=== PATIENT | female | born 2000 | race Caucasian/White ===

== ENCOUNTER 2022-08-27 13:00 | Emergency (ER) | payer BC, MEDICAID, SELFPAY ==
[2022-08-27 13:03] VITALS: BP 131/90; PULSE 95; RESP 18; TEMP 36.8; O2SAT 97; BMI 35.2
--- NOTE | 2022-08-27 13:17 | ED_ITS ---
HPI - General Adult General Time Seen by Provider: 13:18 Date Seen: 08/27/22 Chief complaint: Syncope/Fainted Stated complaint: Fainted this morning Time Seen by Provider: 08/27/22 13:02 Source: patient Mode of arrival: ambulatory Limitations: no limitations History of Present Illness HPI narrative: patient is a 22-year-old female recently got back from [facility] where she was visiting with her cousin. She lives in [place]. he s [employer] [facility] online. She reports she has been quite healthy. She apparently had some type of near syncopal episode yesterday when she got home and was with her family, did not have any seizure activity, did not lose consciousness. She had an episode today where she laid her head down and felt lightheaded. She has a history of migraines. She had a couple of these when she was in [facility]. She also got her 1st COVID shot prior to leaving and thought her headaches plan of been exacerbated since then. She is not awaken with headaches she has not had any neurologic complaints thunderclap headache neck pain. Related Data Home Medications Medication Instructions Recorded Confirmed No Known Home Medications 08/27/22 08/27/22 Allergies Allergy/AdvReac Type Severity Reaction Status Date / Time No Known Drug Allergies Allergy Verified 08/27/22 13:11 Review of Systems Status of ROS: Reports: 6 or more systems reviewed and unremarkable except as noted in History and below [facility] Social History Smoking Status: Never smoker How often do you have a drink containing alcohol: never AUDIT-C Alcohol total score: 0 Non-prescribed substance use: denies use service: No Exam Narrative: Exam Narrative: Objective: Patient's vital signs unremarkable She is alert orient x3 Mouth is well hydrated No facial asymmetry no scleral icterus Neck is supple Chest clear Heart rhythm regular heart murmur Abdomen benign soft nontender Extremities are no edema Neurologic nonfocal Skin is warm and dry Const: Vital Signs, click to edit/add: Vital Signs - 24 hr 08/27/22 13:03 Temperature 98.3 F Pulse Rate [Pulse Oximeter] 95 Respiratory Rate 18 Blood Pressure [Ri ght Upper Arm] 131/90 H Pulse Oximetry 97 Oxygen Delivery Me thod Room Air Course Vital Signs Vital signs: Initial Vital Signs Temperature 98.3 F 08/27/22 13:03 Temperature Source Temporal Artery Scan 08/27/22 13:03 Pulse Rate 95 08/27/22 13:03 Respiratory Rate 18 08/27/22 13:03 Blood Pressure 131/90 H 08/27/22 13:03 Blood Pressure Mean 103 08/27/22 13:03 Blood Pressure Position Supine 08/27/22 13:03 Pulse Oximetry 97 08/27/22 13:03 Oxygen Delivery Method 08/27/22 13:03 Vital Signs Temperature 98.3 F 08/27/22 13:03 Pulse Rate 95 08/27/22 13:03 Respiratory Rate 18 08/27/22 13:03 Blood Pressure 131/90 H 08/27/22 13:03 Pulse Oximetry 97 08/27/22 13:03 Oxygen Delivery Method 08/27/22 13:03 Temperature 98.3 F 08/27/22 13:03 Pulse Rate 95 08/27/22 13:03 Respiratory Rate 18 08/27/22 13:03 Blood Pressure 131/90 H 08/27/22 13:03 Pulse Oximetry 97 08/27/22 13:03 Oxygen Delivery Method 08/27/22 13:03 Medical Decision Making MDM Narrative Medical decision making narrative: patient is a 22-year-old female has had a couple near syncopal episodes. No history of seizure or vasovagal type symptoms in the past. The patient does re port she has had her menstrual cycle little closer together than it has been in the past and she is having it currently. Denies . Denies chest pain, breathing problem fevers chills or cough. Denies diarrhea. Denies lower extremity swelling. At this point given her recent travel will check a multitude to lab tests including COVID/RSV/ influenza, will check an EKG, will give her L IV fluid, electrolytes will be checked as well as heme 4. Disposition pending findings. addendum: The patient's EKG shows sinus rhythm with sinus arrhythmia by my read, white count is minimally elevated at 13,300 thousand three hundred with a normal differential other than slightly elevated neutrophils, D-dimer is negative, electrolytes are normal, LFTs are normal, CRP is less than 0.5, urinalysis looks like she is having her menstrual cycle which she is. At this point recommend observation, fluids, light activity, recheck with primary care in the next couple of days would recommend home for a couple of days. Return as needed. Patient certainly could have some mild dehydration, could have a mild viral infection from her travel. She has reassuring blood studies. An EKG. Lab Data Labs: Lab Results 08/27/22 08/27/22 08/27/22 Range/Units 13:28 13:30 13:41 WBC (4.50-11.00) K/uL RBC (4.00-5.20) m/uL Hgb (12.0-16.0) gm/dL Hct (33.0-51.0) % MCV (80-100) fL MCH (26-34) pg MCHC (32-36) gm/dL RDW Coeff of Trae (11.5-15.5) % Plt Count (140-440) K/uL Neut % (Auto) (42.0-72.0) % Lymph % (Auto) (20-44) % [place] % (Auto) (0.0-11.0) % Eos % (Auto) (0.0-7.0) % Baso % (Auto) (0.0-3.0) % Neut # (Auto) (1.7-7.0) K/uL Lymph # (Auto) (0.90-2.90) K/uL [place] # (Auto) (0.00-0.90) K/UL Eos # (Auto) (0.00-0.50) K/uL Baso # (Auto) (0.00-0.30) K/uL D-Dimer Quant (PE/DVT) (0.00-0.50) ug/ml Sodium 139 (135-149) mmol/L Potassium 4.0 (3.6-5.1) mmol/L Chloride 107 (96-114) mmol/L Carbon Dioxide 24 (20-32) mmol/L BUN 13 (5-24) mg/dL Creatinine 0.8 (0.5-1.5) mg/dL Estimated Creat Clear 96.86 Estimated GFR 108 ml/min Glucose 85 (60-115) mg/dL Lactate (0.5-1.9) mmol/L Calcium 9.5 (8.4-10.6) mg/dL Total Bilirubin (0.1-1.5) mg/dL Direct Bilirubin (0.0-0.5) mg/dL AST (12-35) U/L ALT (4-35) U/L Alkaline Phosphatase (40-150) U/L C-Reactive Protein < 0.5 L (0.5-1.0) mg/dL Total Protein (6.0-8.3) g/dL Albumin (3.3-5.0) g/dL HCG, Qual (Negative) Urine Color Yellow (Yellow) Urine Appearance Slightly Cloudy A (Clear) Urine pH 6.0 (5.0-8.5) Ur Specific [place] >= 1.030 (1.000-1.030) Urine Protein Negative (Negative) Urine Glucose (UA) Negative (Negative) Urine Ketones Negative (Negative) Urine Blood 3+ A (Negative) Urine Nitrite Negative (Negative) Urine Bilirubin Negative (Negative) Urine Urobilinogen 0.2 (0.2-1.0) Ur Leukocyte Esterase Negative (Negative) Urine RBC 10-25 A (0-2) Urine WBC 0-2 (0-5) Ur Squamous Epith Cells Few (None-Few) Urine Bacteria None (None) SARS-CoV-2 (PCR) Negative SARS-CoV-2 (Negative) Influenza Type A (PCR) Negative PCR FLU A (Negative) Influenza Type B (PCR) Negative PCR FLU B (Negative) RSV (PCR) Negative PCR RSV (Negative) 08/27/22 08/27/22 08/27/22 Range/Units 13:41 13:41 13:41 WBC 13.30 H (4.50-11.00) K/uL RBC 5.01 (4.00-5.20) m/uL Hgb 15.6 (12.0-16.0) gm/dL Hct 44.9 (33.0-51.0) % MCV 90 (80-100) fL MCH 31 (26-34) pg MCHC 35 (32-36) gm/dL RDW Coeff of Trae 12.3 (11.5-15.5) % Plt Count 365 (140-440) K/uL Neut % (Auto) 67.0 (42.0-72.0) % Lymph % (Auto) 27.4 (20-44) % [place] % (Auto) 4.1 (0.0-11.0) % Eos % (Auto) 0.8 (0.0-7.0) % Baso % (Auto) 0.4 (0.0-3.0) % Neut # (Auto) 8.90 H (1.7-7.0) K/uL Lymph # (Auto) 3.60 H (0.90-2.90) K/uL [place] # (Auto) 0.50 (0.00-0.90) K/UL Eos # (Auto) 0.10 (0.00-0.50) K/uL Baso # (Auto) 0.10 (0.00-0.30) K/uL D-Dimer Quant (PE/DVT) < 0.27 (0.00-0.50) ug/ml Sodium (135-149) mmol/L Potassium (3.6-5.1) mmol/L Chloride (96-114) mmol/L Carbon Dioxide (20-32) mmol/L BUN (5-24) mg/dL Creatinine (0.5-1.5) mg/dL Estimated Creat Clear Estimated GFR ml/min Glucose (60-115) mg/dL Lactate (0.5-1.9) mmol/L Calcium (8.4-10.6) mg/dL Total Bilirubin 0.9 (0.1-1.5) mg/dL Direct Bilirubin 0.2 (0.0-0.5) mg/dL AST 25 (12-35) U/L ALT 17 (4-35) U/L Alkaline Phosphatase 71 (40-150) U/L C-Reactive Protein (0.5-1.0) mg/dL Total Protein 7.8 (6.0-8.3) g/dL Albumin 4.5 (3.3-5.0) g/dL HCG, Qual (Negative) Urine Color (Yellow) Urine Appearance (Clear) Urine pH (5.0-8.5) Ur Specific [place] (1.000-1.030) Urine Protein (Negative) Urine Glucose (UA) (Negative) Urine Ketones (Negative) Urine Blood (Negative) Urine Nitrite (Negative) Urine Bilirubin (Negative) Urine Urobilinogen (0.2-1.0) Ur Leukocyte Esterase (Negative) Urine RBC (0-2) Urine WBC (0-5) Ur Squamous Epith Cells (None-Few) Urine Bacteria (None) SARS-CoV-2 (PCR) (Negative) Influenza Type A (PCR) (Negative) Influenza Type B (PCR) (Negative) RSV (PCR) (Negative) 08/27/22 08/27/22 Range/Units 13:41 13:41 WBC (4.50-11.00) K/uL RBC (4.00-5.20) m/uL Hgb (12.0-16.0) gm/dL Hct (33.0-51.0) % MCV (80-100) fL MCH (26-34) pg MCHC (32-36) gm/dL RDW Coeff of Trae (11.5-15.5) % Plt Count (140-440) K/uL Neut % (Auto) (42.0-72.0) % Lymph % (Auto) (20-44) % [place] % (Auto) (0.0-11.0) % Eos % (Auto) (0.0-7.0) % Baso % (Auto) (0.0-3.0) % Neut # (Auto) (1.7-7.0) K/uL Lymph # (Auto) (0.90-2.90) K/uL [place] # (Auto) (0.00-0.90) K/UL Eos # (Auto) (0.00-0.50) K/uL Baso # (Auto) (0.00-0.30) K/uL D-Dimer Quant (PE/DVT) (0.00-0.50) ug/ml Sodium (135-149) mmol/L Potassium (3.6-5.1) mmol/L Chloride (96-114) mmol/L Carbon Dioxide (20-32) mmol/L BUN (5-24) mg/dL Creatinine (0.5-1.5) mg/dL Estimated Creat Clear Estimated GFR ml/min Glucose (60-115) mg/dL Lactate 0.5 (0.5-1.9) mmol/L Calcium (8.4-10.6) mg/dL Total Bilirubin (0.1-1.5) mg/dL Direct Bilirubin (0.0-0.5) mg/dL AST (12-35) U/L ALT (4-35) U/L Alkaline Phosphatase (40-150) U/L C-Reactive Protein (0.5-1.0) mg/dL Total Protein (6.0-8.3) g/dL Albumin (3.3-5.0) g/dL HCG, Qual Negative (Negative) Urine Color (Yellow) Urine Appearance (Clear) Urine pH (5.0-8.5) Ur Specific [place] (1.000-1.030) Urine Protein (Negative) Urine Glucose (UA) (Negative) Urine Ketones (Negative) Urine Blood (Negative) Urine Nitrite (Negative) Urine Bilirubin (Negative) Urine Urobilinogen (0.2-1.0) Ur Leukocyte Esterase (Negative) Urine RBC (0-2) Urine WBC (0-5) Ur Squamous Epith Cells (None-Few) Urine Bacteria (None) SARS-CoV-2 (PCR) (Negative) Influenza Type A (PCR) (Negative) Influenza Type B (PCR) (Negative) RSV (PCR) (Negative) Discharge Plan Discharge Clinical Impression: Near syncope Patient Disposition: Home w/ Parent or Adult Condition: Improved Additional Instructions: rest, fluids, light activity, recheck with regular doctor next couple of days, return to ED sooner problems or concerns. Activity Level: Light activity Discharge Diet: Regular Prescriptions: No Action No Known Home Medications Stand Alone Forms: [employer] Info Instructions
[2022-08-27 13:45] LABS: Appearance Urine Slightly Cloudy (Clear); Bilirubin Urine Negative (Negative); Blood Urine 3+ (Negative); Color Urine Yellow (Yellow); Glucose Urine Negative (Negative); Ketones Urine Negative (Negative); Leukocyte Esterase Urine Negative (Negative); Nitrite Urine Negative (Negative); Protein Urine Negative (Negative); Specific Gravity Urine >= 1.030 (1.000-1.030); Urobilinogen Urine 0.2 (0.2-1.0)
[2022-08-27 13:47] LABS: Lactate* 0.5 mmol/L (0.5-1.9)
[2022-08-27] MEDS: 0.9 % SODIUM CHLORIDE 1000 ml 1,000 ML 6000 ML IV (13:50)
[2022-08-27 13:52] LABS: Basophils Percent Auto 0.4 % (0.0-3.0); Eosinophils Percent Auto 0.8 % (0.0-7.0); Hematocrit 44.9 % (33.0-51.0); Hemoglobin* 15.6 gm/dL (12.0-16.0); Immature Granulocytes Pct Auto 0.3 %; Lymphocytes Percent Auto 27.4 % (20-44); Mean Corpuscular HGB Conc 35 gm/dL (32-36); Mean Corpuscular Hemoglobin 31 pg (26-34); Mean Corpuscular Volume 90 fL (80-100); Monocytes Percent Auto 4.1 % (0.0-11.0); Platelet Count* 365 K/uL (140-440); RDW Coefficient of Variation % 12.3 % (11.5-15.5); Red Blood Count 5.01 m/uL (4.00-5.20)
[2022-08-27 13:57] LABS: Slide Review Reflex No
[2022-08-27 14:04] LABS: Chloride* 107 mmol/L (96-114); Sodium* 139 mmol/L (135-149)
[2022-08-27 14:05] LABS: Albumin* 4.5 g/dL (3.3-5.0)
[2022-08-27 14:07] LABS: Creatinine* 0.8 mg/dL (0.5-1.5); Est. Creatinine Clearance* 96.86; Estimated Glomerular Filt Rate 108 ml/min
[2022-08-27 14:08] LABS: Alkaline Phosphatase* 71 U/L (40-150); Aspartate Amino Transferase* 25 U/L (12-35); Bilirubin Direct* 0.2 mg/dL (0.0-0.5); Bilirubin Total* 0.9 mg/dL (0.1-1.5); Blood Urea Nitrogen* 13 mg/dL (5-24); Calcium* 9.5 mg/dL (8.4-10.6); Carbon Dioxide* 24 mmol/L (20-32); Glucose* 85 mg/dL (60-115); Total Protein* 7.8 g/dL (6.0-8.3)
[2022-08-27 14:09] LABS: Alanine Aminotransferase* 17 U/L (4-35)
[2022-08-27 14:11] LABS: C Reactive Protein* < 0.5 mg/dL (0.5-1.0)
[2022-08-27 14:14] LABS: PCR FLU A Negative PCR FLU A (Negative); PCR FLU B Negative PCR FLU B (Negative); PCR RSV Negative PCR RSV (Negative)
[2022-08-27 14:18] LABS: SARS PCR* Negative SARS-CoV-2 (Negative)
[2022-08-27 14:20] LABS: Squamous Epithelial Cell Urine Few (None-Few); WBC Urine 0-2 (0-5)
[2022-08-27 14:25] LABS: HCG Qualitative Serum* Negative (Negative)
[2022-08-27 14:27] LABS: D Dimer Quantitative* < 0.27 ug/ml (0.00-0.50)
== END 2022-08-27 15:49 | disposition home or self-care (01) ==
LOC: ED 13:58
PROVIDERS: Emergency Provider Family Medicine; PCP Family Medicine
DX: R55 Syncope and collapse (principal)
CPT/HCPCS: 36415; 80048; 80076; 81001; 83605; 84703; 85025; 85379; 86140; 87086; 87502; 87634; 87635; 93005; 99283; 99284; J7030

== ENCOUNTER 2023-04-27 19:47 | Outpatient (CLI) | payer BC, SELFPAY ==
--- NOTE | 2023-05-06 12:11 | W.PM.SLEEP ---
Sleep Study Details Details Interpreting Provider: Pratima Date of Sleep Study: 04/27/23 Sleep Study Details: STUDY TYPE:? Home unattended ? BMI:? 35.9 ORDERING PROVIDER:? Pratima INDICATION:? Concerns about sleep apnea ? SLEEP SUMMARY:? 391.5 minutes monitored RESPIRATORY SUMMARY:? AHI 5.5, supine 11, right lateral 0.7. Low oxygen 91 Snoring 0% PERIODIC LIMB MOVEMENTS OF SLEEP:? Not recorded during home study CARDIAC:? Range 47-104 beats per minute, mean 68.6 beats per minute IMPRESSION:? Mild obstructive sleep apnea with supine position dependency. RECOMMENDATION: Treatment options include AutoSet CPAP, dental appliance, weight loss and/or airway expansion surgery. Patient is quite symptomatic so I would recommend a trial of AutoSet CPAP.
== END 2023-04-27 19:48 | disposition home or self-care (01) ==
LOC: SLEEP 19:47
PROVIDERS: PCP Family Medicine; Visit Provider Otolaryngology
DX: G47.33 Obstructive sleep apnea (adult) (pediatric) (principal)
CPT/HCPCS: 95806

== ENCOUNTER 2023-11-18 12:22 | Outpatient (CLI) | payer OTHER, SELFPAY ==
--- OUTSIDE RECORDS SUMMARY | 2023-11-24 17:23 | XMS_ITS ---
Author Name Unknown Organization [facility] Address [address] [place] [address] Care Team Providers Care Manager Equipment Name Role Phone Unavailable Unavailable Unavailable Surgery Details Not on file Complications Check Surgery Details section. Procedure Estimated Blood Loss Check Surgery Details section. Procedure Findings Check Surgery Details section. Procedure Specimens Taken Check Surgery Details section.
--- OUTSIDE RECORDS SUMMARY | 2023-11-24 17:23 | XMS_ITS | Clinical Summary ---
Author Name Unknown Organization [facility] Address [place], [place] [address] Care Team Providers Care Sample Patternmaker Name Role Phone Ping George MD Primary Care Provider [phone] Allergies Active Allergy Reactions Criticality Noted Date [...] 4 Discontinued (Reorder (E-cancel not sent)) nortriptyline 50 mg capsuleIndications :Headache syndrome Take 1 Capsule (50 mg) by mouth at bedtime. 90 Capsule 3 10/23/2023 4 Discontinued (*Medication adjustment) nortriptyline (PAMELOR) 25 mg capsuleIndications :Migraine without aura and without status migrainosus, not intractable Take 1 Capsule (25 mg) by mouth at bedtime for 14 days. 14 Capsule 11/11/2023 4 Discontinued (Reorder (E-cancel not sent)) nortriptyline (PAMELOR) 25 mg capsuleIndications :Migraine without [...] Encounters Date Type Department Care Team Description 11/24/2023 11:00 AM CDT Ancillary Procedure [facility] [address] [facility] [place] [address] Arrived 11/24/2023 Travel 11/18/2023 Nurse Triage [facility] [address] [place] [address] Ping George MD Headache 11/11/2023 7:30 AM CDT Office Visit [address] [address] Lauryn Tate PA Headache (New dose of headache med has not been working-has been getting daily headaches, last wknd with migraine-has been more difficult to get them to go away-all on left side) 11/11/2023 Travel 10/31/[address] [address] Lauryn Tate PA Prior Authorization (SUMAtriptan (IMITREX) 50 mg tablet - DENIED ) 10/29/[address] [address] Lauryn Tate PA Prior Authorization (nortriptyline 50 mg capsule - PA NOT NEEDED ) 10/26/2023 Orders Only [address] [address] Lauryn Tate PA <No scans attached> 10/07/[address] [address] Lauryn Tate PA Prior Authorization (nortriptyline (PAMELOR) 10 mg capsule - CLOSED) 10/07/[address] [address] Lauryn Tate PA Prior Authorization (escitalopram oxalate (LEXAPRO) 10 mg tablet - CLOSED) 10/02/2023 10:10 AM CDT Office Visit [address] [address] Lauryn Tate PA Medication Management (Struggling with depression and anxiety-had been on sertraline a few years ago and would like to get back on it-also wants correct dose of headache med) 10/02/2023 Travel 08/26/2023 2:30 PM HASH SLINGER Office Visit [facility] [address] [place] [address] Lauryn Tate PA Headache 08/26/2023 Travel from [...] Care Team (Late st Contact Info) Description 11/25/2023 11:30 AM CDT Office Visit [facility] [address] [place] [address] Lauryn Tate PA [address] [address] Health Maintenance Due Date Last Done Comments [...] Procedure Name Priority Date/Time Associated Diagnosis Comments MR HEAD BRAIN WO Routine 11/24/2023 11:0 6 AM CDT Migraine without aura and without status migrainosus, not intractable CBC WITH AUTO DIFFERENTIAL Routine 08/26/2023 3:15 PM HASH SLINGER Migraine without aura and without status migrainosus, not intractable TSH Routine 08/26/2023 3:15 PM HASH SLINGER Migraine without aura and without status migrainosus, not intractable VITAMIN D 25 (DEFICIENCY) Routine 08/26/2023 3:15 PM HASH SLINGER Migraine without aura and without status migrainosus, not intractable COMP METABOLIC PANEL Routine 08/26/2023 3:15 PM HASH SLINGER Migraine without aura and without status migrainosus, not intractable CBC WITH AUTO DIFFERENTIAL Routine 08/26/2023 3:15 PM HASH SLINGER Migraine without aura and without status migrainosus, not intractable from Last 3 Months Results * MR HEAD BRAIN WO (11/24/2023 11:06 AM CDT) Anatomical Region Laterality Modality BRAIN, HEAD Magnetic Resonan ce 11/24/2023 11:5 6 AM CDT Impressions 11/24/2023 11:56 AM CDT Unremarkable noncontrast MRI of the brain. Dictated by Bill Herman MD @ 11/24/2023 11:56:46 AM (Electronically Signed) Narrative 11/24/2023 11:56 AM CDT For Patients: ??As a result of the Cures Act, medical imaging exams and procedure reports are released immediately into your electronic medical record. ??You may view this report before your referring provider. ??If you have questions, please contact your health care provider. INDICATION: Migraine. TECHNIQUE: Multiplanar multisequence noncontrast MR images of the brain. COMPARISON: CT brain 07/01/2019. FINDINGS: The ventricles and sulci are within normal limits for patient age. No mass effect or midline shift. No parenchymal signal abnormalities. No intracranial hemorrhage or pathologic extra-axial fluid collection. No diffusion restriction to suggest acute infarction. The major arterial flow voids of the skullbase are preserved. The globes are symmetric. The paranasal sinuses are well aerated. Trace left mastoid fluid. Procedure Note Bill Herman MD - 11/24/2023 For Patients: As a result of the Cures Act, medical imagingexams and procedure reports are released immediately into your electronicmedical record. You may view this report before your referring provider.If you have questions, please contact your health care provider. INDICATION: Migraine. TECHNIQUE: Multiplanar multisequence noncontrast MR images of the brain. COMPARISON: CT brain 07/01/2019. FINDINGS: The ventricles and sulci are within normal limits for patient age. No masseffect or midline shift. No parenchymal signal abnormalities. No intracranial hemorrhage or pathologic extra-axial fluid collection. Nodiffusion restriction to suggest acute infarction. The major arterial flow voids of the skullbase are preserved. The globesare symmetric. The paranasal sinuses are well aerated. Trace left mastoidfluid. IMPRESSION: Unremarkable noncontrast MRI of the brain. Dictated by Bill Herman MD @ 11/24/2023 11:56:46 AM (Electronically Signed) Lauryn Oriana MARTINEZ MR * (ABNORMAL) CBC WITH AUTO DIFFERENTIAL (08/26/2023 3:15 PM HASH SLINGER) WHITE BLOOD COUNT 12.2(H) 4.5 - 11.0 thou/cu mm 08/26/2023 3:22 PM [facility] RED BLOOD COUNT 4.98 4.00 - 5.20 mil/cu mm 08/26/2023 3:22 PM [facility] HEMOGLOBIN 16.1(H) 12.0 - 16.0 g/dL 08/26/2023 3:22 PM [facility] HEMATOCRIT 44.5 33.0 - 51.0 % 08/26/2023 3:22 PM [facility] MCV 89 80 - 100 fL 08/26/2023 3:22 PM [facility] MCH 32.3 26.0 - 34.0 pg 08/26/2023 3:22 PM [facility] MCHC 36.2(H) 32.0 - 36.0 g/dL 08/26/2023 3:22 PM [facility] RDW 12.9 11.5 - 15.5 % 08/26/2023 3:22 PM [facility] PLATELET COUNT 326 140 - 440 thou/cu mm 08/26/2023 3:22 PM [facility] MPV 9.0 6.5 - 11.0 fL 08/26/2023 3:22 PM [facility] % NEUT 71.6 % 08/26/2023 3:22 PM [facility] % LYMPH 23.7 % 08/26/2023 3:22 PM [facility] % MONO 3.9 % 08/26/2023 3:22 PM [facility] % EOS 0.2 % 08/26/2023 3:22 PM [facility] % BASO 0.6 % 08/26/2023 3:22 PM [facility] ABSOLUTE NEUTROPHILS 8.7(H) 1.7 - 7.0 thou/cu mm 08/26/2023 3:22 PM HASH SLINGER [facility] ABSOLUTE LYMPHOCYTES 2.9 0.9 - 2.9 thou/cu mm 08/26/2023 3:22 PM HASH SLINGER [facility] ABSOLUTE MONOCYTES 0.5 <0.9 thou/cu mm 08/26/2023 3:22 PM HASH SLINGER [facility] ABSOLUTE EOSINOPHILS 0.0 <0.5 thou/cu mm 08/26/2023 3:22 PM HASH SLINGER [facility] ABSOLUTE BASOPHILS 0.1 <0.3 thou/cu mm 08/26/2023 3:22 PM HASH SLINGER [facility] Blood BLOOD SPECIMEN / Unknown Venipuncture / Unknown 08/26/2023 3:15 PM HASH SLINGER 08/26/2023 3:16 PM HASH SLINGER Lauryn MARTINEZ HEMATOLOGY Performing Organization Address City/State/[facility] [place] [address], * VITAMIN D 25 (DEFICIENCY) (08/26/2023 3:15 PM HASH SLINGER) Pathologist [facility] VITAMIN D TOTAL 29.3 20.0 - 80.0 ng/mL 08/26/2023 10:32 PM HASH SLINGER [facility] Blood BLOOD SPECIMEN / Unknown Venipuncture / Unknown 08/26/2023 3:15 PM HASH SLINGER 08/26/2023 3:16 PM HASH SLINGER Narrative [facility] - 08/26/2023 10:32 PM HASH SLINGER ? Vitamin D Status Deficiency: ? <20 ng/mL Insufficiency: ?20-29 ng/mL Sufficiency: ?30-80 ng/mL Possible Toxicity: ??>80 ng/mL Based on [place] [employer] recommendations Biotin supplements may cause clinically significant interference for this test assay. ??If interference is suspected, it is strongly recommended that biotin is discontinued for at least one week prior to retesting. Lauryn MARTINEZ SEND OUTS Performing Organization Address [facility] Co de Phone Number [facility] [address] [place] [phone], * TSH (08/26/2023 3:15 PM HASH SLINGER) TSH 2.19 0.27 - 4.20 uIU/mL 08/26/2023 10:32 PM HASH SLINGER [facility] Blood BLOOD SPECIMEN / Unknown Venipuncture / Unknown 08/26/2023 3:15 PM HASH SLINGER 08/26/2023 3:16 PM HASH SLINGER Narrative [facility] - 08/26/2023 10:32 PM HASH SLINGER In Adults, TSH values between 5.00 and 10.00 uIU/ml do not necessarily indicate the presence of Hypothyroidism. Correlation with clinical findings such as presence of goiter and/or Thyroperoxidase (TPO) Antibody may be helpful. For more information please refer to BRANDIN 2004; 291: 228-238. Lauryn MARTINEZ CHEMISTRY Performing Organization Address [facility] Co de Phone Number [facility] [address] [place] [phone], * (ABNORMAL) COMP METABOLIC PANEL (08/26/2023 3:15 PM HASH SLINGER) SODIUM 136 136 - 145 mmol/L 08/26/2023 10:32 PM HASH SLINGER [facility] POTASSIUM 4.1 3.5 - 5.1 mmol/L 08/26/2023 10:32 PM HASH SLINGER [facility] CHLORIDE 103 98 - 107 mmol/L 08/26/2023 10:32 PM [facility] CO2,TOTAL 21(L) 22 - 29 mmol/L 08/26/2023 10:32 PM HASH SLINGER [facility] ANION GAP 12 5 - 18 08/26/2023 10:32 PM [facility] GLUCOSE 99 70 - 99 mg/dL 08/26/2023 10:32 PM [facility] CALCIUM 9.4 8.6 - 10.0 mg/dL 08/26/2023 10:32 PM [facility] BUN 9 6 - 20 mg/dL 08/26/2023 10:32 PM [facility] CREATININE 0.79 0.50 - 0.90 mg/dL 08/26/2023 10:32 PM [facility] BUN/CREAT RATIO 11 10 - 20 10:32 PM [facility] eGFR >90 >90 mL/min/1.7 3m2 08/26/2023 10:32 PM [facility] Comment:As of 2021, eG FR is calculated by the CKD-EPI creatinine equation without race adjustment. ??eGFR can be influenced by muscle mass, exercise, and diet. ??The reported eGFR is an estimation only and is only applicable if the renal function is stable. ALBUMIN 4.5 4.0 - 4.9 g/dL 08/26/2023 10:32 PM [facility] PROTEIN,TOTAL 7.2 6.0 - 8.0 g/dL 08/26/2023 10:32 PM [facility] BILIRUBIN,TOTAL 0.7 0.0 - 1.2 mg/dL 08/26/2023 10:32 PM [facility] ALK PHOSPHATASE 70 35 - 104 IU/L 08/26/2023 10:32 PM [facility] ALT (SGPT) 11 10 - 35 IU/L 08/26/2023 10:32 PM [facility] AST (SGOT) 25 10 - 35 IU/L 08/26/2023 10:32 PM [facility] Blood BLOOD SPECIMEN / Unknown Venipuncture / Unknown 08/26/2023 3:15 PM HASH SLINGER 08/26/2023 3:16 PM HASH SLINGER Lauryn MARTINEZ CHEMISTRY [facility] [address] [place] [address], [place] from Last 3 Months Care Teams Sample Patternmaker Relationship Specialty Start Date End Date Ping George MD [address] [place] [address] PCP - General Family Practice 08/18/20
--- OUTSIDE RECORDS SUMMARY | 2023-11-24 17:23 | XMS_ITS | Clinical Summary ---
Author Name Unknown Organization [facility] Address [address] [place] [address] Care Team Providers Care Naval Aircrewman Mechanical Name Role Phone Elsewhere, Pcp Primary Care Provider Unavailabl e Source Comments Patient records contain information from all sites at [facility]. For routine questions regarding patient records, call [phone] during business hours, M-F 8:00 AM - 5:00 PM Central Time. Record requests for emergency care only can be directed to [phone] at any time.[facility] Allergies Active Allergy Reactions Criticality Noted Date [...] Comments Blood Pressure 119/61 07/09/2023 9:00 PM BLADDER BLOWER Pulse 76 07/09/2023 9:00 PM BLADDER BLOWER Temperature 36.3 ??C (97.3 ??F) 07/09/2023 6:18 PM CS T Respiratory Rate 18 07/09/2023 9:00 PM BLADDER BLOWER Oxygen Saturation 99% 07/09/2023 9:00 PM BLADDER BLOWER Inhaled Oxygen Concentration - - Weight 93.6 kg (206 lb 5.6 oz) 07/09/2023 6:15 P M BLADDER BLOWER Height 160.5 cm (5' 3.19) 07/29/2019 7:53 [...] 04/03/2020, 10/18/2014, Additional history exists Care Teams Naval Aircrewman Mechanical Relationship Specialty Start Date End Date Elsewhere, Pcp PCP - General Concrete Finishing Machine Operator 07/29/19
--- OUTSIDE RECORDS SUMMARY | 2023-11-24 17:23 | XMS_ITS | Referral Summary ---
Author Name Unknown Organization [facility] Address [address] [place] [address] Care Team Providers Care Materials Development Engineer Name Role Phone Elsewhere, Pcp Primary Care Provider Unavailabl e Source Comments Patient records contain information from all sites at [facility]. For routine questions regarding patient records, call [phone] during business hours, M-F 8:00 AM - 5:00 PM Central Time. Record requests for emergency care only can be directed to [phone] at any time.[facility] Allergies Active Allergy Reactions Criticality Noted [...] Comments Blood Pressure 119/61 07/09/2023 9:00 PM BUTCHER ASSISTANT Pulse 76 07/09/2023 9:00 PM BUTCHER ASSISTANT Temperature 36.3 ??C (97.3 ??F) 07/09/2023 6:18 PM CS T Respiratory Rate 18 07/09/2023 9:00 PM BUTCHER ASSISTANT Oxygen Saturation 99% 07/09/2023 9:00 PM BUTCHER ASSISTANT Inhaled Oxygen Concentration - - Weight 93.6 kg (206 lb 5.6 oz) 07/09/2023 6:15 P M BUTCHER ASSISTANT Height 160.5 cm (5' 3.19) 07/29/2019 7:53 AM CS T Body Mass Index - - Plan of Treatment Not on file Care Teams Materials Development Engineer Relationship Specialty Start Date End Date Elsewhere, Pcp PCP - General Machine Feeder Raw Stock 07/29/19
== END 2023-11-18 12:23 | disposition home or self-care (01) ==
LOC: AMB 11-24 17:21
PROVIDERS: PCP Physician Assistant; Visit Provider Emergency Medicine
DX: R55 Syncope and collapse (principal); R51.9 Headache, unspecified
CPT/HCPCS: A0425; A0427

== ENCOUNTER 2023-11-18 12:47 | Emergency (ER) | payer OTHER, SELFPAY ==
[2023-11-18] VITALS (23 sets, daily range): BP systolic 113–144; BP diastolic 65–106; PULSE 73–113; RESP 18; TEMP 36.5; O2SAT 96–100; BMI 37.8
--- NOTE | 2023-11-18 13:29 | CT_ITS ---
Patient: JOVANNA WELLS Facility:?[facility] RIS Patient ID:?[id number] Site Patient ID:?[id number]. Site :?[id number] Study:?CT-Head WO-11/18/2023 4:02:40 PM Ordering Physician:ISIS Final Report: INDICATION: Headache, syncope. TECHNIQUE: CT head without contrast. COMPARISON: None. FINDINGS: CSF spaces: Within normal limits for age. Brain parenchyma and extra-axial spaces: The pereira-white differentiation is normal. No sign of mass, hemorrhage, or midline shift. No extra-axial fluid collection. Skull base and calvarium: The visualized paranasal sinuses and mastoid air cells demonstrate no acute or significant findings. The visualized orbits are grossly unremarkable. No skull fractures. IMPRESSION: Unremarkable noncontrast head CT. Please note that all CT scans at this facility use dose modulation, iterative reconstruction, and/or weight-based dosing when appropriate to reduce radiation dose to as low as reasonably achievable. Dictated by Flo Sanchez MD @ 11/18/2023 4:14:18 PM Signed by:?Flo Sanchez MD @11/18/2023 4:14:18 PM (Electronic Signature)
[2023-11-18] MEDS: 0.9 % SODIUM CHLORIDE 1000 ml 1,000 ML IV (14:09)
--- NOTE | 2023-11-18 14:14 | ED_ITS ---
HPI - General Adult General Date Seen: 11/18/23 Chief complaint: Headache/Migraine Stated complaint: migraine Time Seen by Provider: 11/18/23 12:52 History of Present Illness HPI narrative: 23-year-old female with a past medical history of exercise-induced asthma, anxiety, migraine headaches (with frequent, almost daily headaches), irritable bowel syndrome, presenting to the ER today by EMS from her work after a syncopal event and headache. She does have very frequent headaches. She follows with the [facility] clinic for primary care in headache management. She is currently on escitalopram for anxiety. She was started on Topamax to try to reduce the frequency of her headaches, by her primary care provider. She started her 1st dose of to open this morning. Nonetheless around 10:00 a.m. she began to get him migraine headache. She took 1 of her sumatriptan tablets as she normally does. The headache went from about a 4 to a 2 but was still present. She was at work at her job at [employer]. She requested to be in the window because often times fresh air can help her headache get better. She had been standing, on her feet, in the window for about 10 minutes when she began to feel unusual. She said the upper half of her body from her abdomen up to her head including both of her arms went numb. She started to feel her heart racing and she tried to lay down. After that she felt generally weak and numb all over and then she blacked out. It sounds like she did lose consciousness for less than a minute and then woke up and took a big breath and then lost consciousness again. Her episode was witnessed by coworkers. No described seizure activity. After that she came to. She can use to feel generally weak and numb throughout her entire body (now including both legs in addition to her upper body). No ongoing racing heart. No chest pain. No other new symptoms. No recent fever. No cough or trouble breathing. No recent chest pains. No vomiting or diarrhea. She is currently on her menstrual cycle. She was noting a little bit of pelvic cramping yesterday which is unusual for her because she does not normally get any cramps with her period. She does not think she is No trouble with urination No recent head injuries. She also notes that she has a family history of multiple people with ?heart problems?. Discussed with her mother by phone. It sounds like the patient's grandmother had coronary disease, cardiomyopathy, and also had a ?bridge? between her heart that was causing arrhythmias. I wonder for grandmother may have had Wcmic-Kflsfkkti-Hezgb. She has a cousin with a VSD. She has another cousin with a possible ?bridge? in her heart. There other cousins with been told that they should do Valsalva maneuvers when they have palpitations (unclear if they have SVT?) The patient does not have any known person history of arrhythmia or any conduction pathway abnormalities. Related Data Home Medications Medication Instructions Recorded Confirmed albuterol 90 mcg/actuation aerosol 2 spray inhalation PRN 01/01/23 05/06/23 inhaler escitalopram oxalate 10 mg tablet 10 mg PO DAILY 11/18/23 11/18/23 nortriptyline 50 mg capsule 50 mg PO QPM 11/18/23 11/18/23 sumatriptan succinate 50 mg tablet 50 mg PO BID migraine 11/18/23 11/18/23 topiramate 25 mg tablet mg PO 11/18/23 Allergies Allergy/AdvReac Type Severity Reaction Status Date / Time No Known Drug Allergies Allergy Verified 05/06/23 10:10 [facility] Medical History (Updated 11/18/23 @ 16:16 by Eber Zelaya MD) Depression ?F32.A - Depression, unspecified (ICD-10) Asthma ?J45.909 - Unspecified asthma, uncomplicated (ICD-10) Social History Smoking Status: Never smoker How often do you have a drink containing alcohol: never AUDIT-C Alcohol total score: 0 Non-prescribed substance use: denies use Little interest or pleasure in doing things: not at all Feeling down, depressed, or hopeless: not at all service: No Exam Narrative: Exam Narrative: Constitutional: Appears well-developed and well-nourished. Alert. Conversant but somewhat vague historian. Boyfriend attentively at her side.. Non toxic. Patient seems somewhat anxious. HENT: Head: Atraumatic. No depressed skull fracture, Raccoon Eyes, Crowley's sign, or hemotympanum. Face normal. TMs normal Nose: Nose normal. Mouth/Throat: Oral mucosa is clear and moist. no trismus. Pharynx normal. Tonsils symmetric. No tonsillar enlargement, erythema, or exudate. Eyes: Conjunctivae normal. EOM normal. Pupils equal, round, and reactive to light. No scleral icterus. Neck: Normal range of motion. Neck supple. No tracheal deviation present. Cardiovascular: Normal rate, regular rhythm. No gallop. No friction rub. No murmur heard. Symmetric radial artery pulses Pulmonary/Chest: Effort normal. No stridor. No respiratory distress. No wheezes. No rales. No rhonchi . No tenderness. Abdominal: Soft. Bowel sounds normal. No distension. No mass. No tenderness. No rebound. No guarding. Musculoskeletal: RUE: Normal range of motion. No tenderness. No deformity LUE: Normal range of motion. No tenderness. No deformity RLE: Normal range of motion. No edema. No tenderness. No deformity LLE: Normal range of motion. No edema. No tenderness. No deformity Lymph: No cervical adenopathy. Neurological: Mental status normal. Attention normal. Alert and oriented x3. GCS 15. Memory normal. Speech fluent. Cognition normal. Cranial Nerves intact II-XII except I did not formally test gag or visual acuity. EOMI. Palate elevates symmetrically and tongue protrudes in the midline. Strength: 5/5 trapezius on the right and left 5/5 deltoid on the right and left 5/5 biceps on the right and left 5/5 triceps on the right and left 5/5 laster hand on the right and left 5/5 thumb opposition on the right and le ft 5/5 finger abduction on the right and le ft 5/5 hip flexors (L3) on the right and le ft 5/5 quadriceps (L4) on the right and lef t 5/5 tibialis anterior on the right and l eft 5/5 EHL (L5) on the right and left 5/5 gastrocnemius (S1) on the right and left 5/5 hamstring on the right and left Sensation intact to light touch in both upper extremities (C4-T1) Sensation intact to light touch in Both lower extremities (L4-S1). Finger to nose and coordination normal. Skin: Skin is warm and dry. No rash noted. No pallor. Normal capillary refill. Psychiatric: Normal mood. . Somewhat anxious. Polite. Const: Vital Signs, click to edit/add: Vital Signs - 24 hr 11/18/23 12:57 11/18/23 13:47 Temperature 97.7 F Pulse Rate [Pulse Oximeter] 97 Pulse Rate [orthos tatic lying Pulse Oximeter] 82 Pulse Rate [orthos tatic sitting Puls e Oximeter] 95 Pulse Rate [orthos tatic standing Pul se Oximeter] 113 H Respiratory Rate 18 Blood Pressure [Ri ght Upper Arm] 134/104 H Blood Pressure [or thostatic lying Ri ght Arm] 128/83 Blood Pressure [or thostatic sitting Right Arm] 134/88 Blood Pressure [or thostatic standing Right Arm] 144/106 H Pulse Oximetry 99 Oxygen Delivery Me thod Room Air Course Vital Signs Vital signs: Initial Vital Signs Temperature 97.7 F 11/18/23 12:57 Temperature Source Temporal Artery Scan 11/18/23 12:57 Pulse Rate 97 11/18/23 12:57 Respiratory Rate 18 11/18/23 12:57 Blood Pressure 134/104 H 11/18/23 12:57 Blood Pressure Mean 114 H 11/18/23 12:57 Pulse Oximetry 99 11/18/23 12:57 Oxygen Delivery Method Room Air 11/18/23 12:57 Vital Signs Temperature 97.7 F 11/18/23 12:57 Pulse Rate 97 11/18/23 12:57 Respiratory Rate 18 11/18/23 12:57 Blood Pressure 134/104 H 11/18/23 12:57 Pulse Oximetry 99 11/18/23 12:57 Oxygen Delivery Method Room Air 11/18/23 12:57 Temperature 97.7 F 11/18/23 12:57 Pulse Rate 82 11/18/23 13:47 Respiratory Rate 18 11/18/23 12:57 Blood Pressure 128/83 11/18/23 13:47 Pulse Oximetry 99 11/18/23 12:57 Oxygen Delivery Method Room Air 11/18/23 12:57 Medications Administered Medications: Discontinued Medications Generic Name Dose Route Start Last Admin Trade Name Freq PRN Reason Stop Dose Admin Diphenhydramine HCl 25 mg 11/18/23 14:28 11/18/23 14:36 Diphenhydramine 50 Mg/Ml Inj IVP 11/18/23 14:29 25 mg ONCE ONE Administration Sodium Chloride 1,000 mls @ 1,000 mls/hr 11/18/23 13:30 11/18/23 14:09 0.9 % Sodium Chloride 1000 Ml IV 11/18/23 14:29 1,000 mls/hr .Q1H DALILA Administration Ketorolac Tromethamine 15 mg 11/18/23 14:28 11/18/23 14:36 Ketorolac 15 Mg/Ml Inj IVP 11/18/23 14:29 15 mg ONCE ONE Administration Medical Decision Making MDM Narrative Medical decision making narrative: This patient has history of chronic headaches and frequent daily headaches who presents to the ER today for an episode of syncope that occurred while she was at work. She follows with her primary care provider for managing this and normally treats her headaches with sumatriptan. She was started on once daily Topamax today to try to reduce the frequency of her headaches. Despite that she did have another 1 of her headaches this morning. It was not sudden in onset and it was typical in location and intensity for her usual migraine. She took her sumatriptan and headache actually had come down to a 4 to a 2/10. Subsequently, While at work she began to feel lightheaded, numb from the chest up, which led to a syncopal event. A broad differential was considered. History provided suggests a benign cause of syncope. She does have a family history of a grandmother with cardiac arrhythmias and possibly an accessory conduction pathway (but grandmother's history is not clear). She has no heart murmurs to suggest aortic stenosis or other structural abnormality.. Initial ECG shows normal sinus rhythm and no dysrhythmogenic abnormality such as WPW, prolonged QT, Brugada syndrome, and no ischemia. No symptoms/findings concerning for cardiac ischemia or ACS She had been standing at work for a while before she had her syncopal event. This raises concern for possible orthostatic syncope. Orthostatic vital signs are fairly normal. Lying her pulse is 82, blood pressure 128/83. Sitting her pulse is 95 and blood pressure is 134/88 Standing her pulse goes up to 113 and her blood pressure rises to 144/106. She does have her chronic headache which is actually fairly mild now. No fever or abrupt onset headache or other neurologic symptoms to suggest subarachnoid , stroke , meningitis.. No reported seizure-like activity or postictal phase. She says that her doctor has actually ordered an outpatient brain MRI because of her frequent headaches. We did order a noncontrast head CT here in the ER. Result is currently pending. She also complained of diffuse whole-body numbness and paresthesias. No focal deficits to suggest an acute CVA or a Mukesh's paralysis after a seizure. Suspect this is likely due to med side effect and or/anxiety. Improved with Benadryl given here in the ER. environmental monitoring specialist while the patient here in the ER showed no dysrhythmia or ectopy. A broad differential diagnosis was considered including SVT, Atrial fibrillation, ventricular arrhythmia, thyroid disease, acute electrolyte ab normality, drugs/medications, medication side effect, anemia, heart disease, PE, among others. Troponin is still pending. Patient signed out to my partner, Dr. Talley. He will follow-up on the head CT scan in the pending troponin result. He will follow-up on the results. I anticipate that will both be normal. In that event patient safely discharged home. If they are abnormal he will alter disposition and treat appropriately. The workup and exam here in ED shows low risk for dangerous cause of the patient's syncope, and no risks factors to warrant admission. I suspect this was either vasovagal syncope or possibly a side effect of Topamax. Would advise that she hold off on further Topamax until she follows up with her regular doctor for recheck, Clinical judgement suggests that supportive outpatient management is indicated. Recommend follow up with her primary care provider within the next 2-3 days. Questions answered and return precautions given Lab Data Labs: Lab Results 11/18/23 Range/Units 14:15 WBC 12.20 H (4.50-11.00) K/uL RBC 4.98 (4.00-5.20) m/uL Hgb 15.4 (12.0-16.0) gm/dL Hct 45.1 (33.0-51.0) % MCV 91 (80-100) fL MCH 31 (26-34) pg MCHC 34 (32-36) gm/dL RDW Coeff of Trae 12.4 (11.5-15.5) % Plt Count 363 (140-440) K/uL Neut % (Auto) 58.4 (42.0-72.0) % Lymph % (Auto) 35.2 (20-44) % Limestone % (Auto) 5.0 (0.0-11.0) % Eos % (Auto) 0.6 (0.0-7.0) % Baso % (Auto) 0.6 (0.0-3.0) % Neut # (Auto) 7.10 H (1.7-7.0) K/uL Lymph # (Auto) 4.30 H (0.90-2.90) K/uL Limestone # (Auto) 0.60 (0.00-0.90) K/UL Eos # (Auto) 0.10 (0.00-0.50) K/uL Baso # (Auto) 0.10 (0.00-0.30) K/uL Abs Immat Gran (auto) 0.00 (0.00-0.30) K/uL Imm/Tot Granulo (auto) 0.2 % Sodium 140 (135-149) mmol/L Potassium 4.4 (3.6-5.1) mmol/L Chloride 104 (96-114) mmol/L Carbon Dioxide 32 (20-32) mmol/L Anion Gap 4 L (7-15) mEq/L BUN 10 (5-24) mg/dL Creatinine 0.7 (0.5-1.5) mg/dL Estimated Creat Clear 109.78 Estimated GFR 126 ml/min Glucose 84 (60-115) mg/dL Calcium 9.3 (8.4-10.6) mg/dL TSH 1.360 (0.270-4.200) uIU/mL HCG, Qual Negative (Negative) ECG Data Attestation: I personally reviewed and interpreted this ECG as follows: Interpretation: Normal sinus rhythm Rate: 85 IN: 136. No delta waves. No QRS widening QRS axis: Normal axis. No pathologic Q-waves. QRS duration 80 ST segment/T wave: No ST segment elevation or depression. QTc: 411 Artifact versus U-waves. Discharge Plan Discharge Clinical Impression: Headache, Syncope Patient Disposition: Home, Self-Care Condition: Stable Instructions: Syncope (DC), Acute Headache (ED) Additional Instructions: As we discussed so far your workup in the ER looks reassuring. No signs of any heart problems or cardiac arrhythmias here. Her laboratory workup looks good. Her head CT looks okay. I suspect that your to numbness and fainting spell were probably side effects of your new medication, Topamax. Stop taking that medication until you can follow- up with your regular doctor for recheck. Please see your doctor within next 2-3 days. Please come back to the ER right away if you have any more palpitations, dizzy or fainting spells, or if you have any other concerning symptoms such as new or worsening headaches, fever or chills, chest pain, or if you have any other problems. Prescriptions: No Action albuterol 90 mcg/actuation aerosol 2 spray inhalation PRN sumatriptan succinate 50 mg tablet 50 mg PO BID topiramate 25 mg tablet PO nortriptyline 50 mg capsule 50 mg PO QPM escitalopram oxalate 10 mg tablet 10 mg PO DAILY Follow Up/Referrals: Primitivo Morataya MD [Staff Physician] - Stand Alone Forms: [employer] Info Instructions
[2023-11-18 14:19] LABS: Basophils Percent Auto 0.6 % (0.0-3.0); Eosinophils Percent Auto 0.6 % (0.0-7.0); Hematocrit 45.1 % (33.0-51.0); Hemoglobin* 15.4 gm/dL (12.0-16.0); Immature Granulocytes Pct Auto 0.2 %; Lymphocytes Percent Auto 35.2 % (20-44); Mean Corpuscular HGB Conc 34 gm/dL (32-36); Mean Corpuscular Hemoglobin 31 pg (26-34); Mean Corpuscular Volume 91 fL (80-100); Neutrophils Percent Auto 58.4 % (42.0-72.0); Platelet Count* 363 K/uL (140-440); RDW Coefficient of Variation % 12.4 % (11.5-15.5); Red Blood Count 4.98 m/uL (4.00-5.20)
[2023-11-18 14:31] LABS: Slide Review Reflex No
[2023-11-18] MEDS: KETOROLAC 15 MG/ML inj IVP (14:36)
[2023-11-18] MEDS: diphenhydrAMINE 50 MG/ML inj 25 MG IVP (14:36)
[2023-11-18 14:38] LABS: Chloride* 104 mmol/L (96-114); Potassium* 4.4 mmol/L (3.6-5.1); Sodium* 140 mmol/L (135-149)
[2023-11-18 14:41] LABS: Anion Gap 4 mEq/L (7-15); Blood Urea Nitrogen* 10 mg/dL (5-24); Carbon Dioxide* 32 mmol/L (20-32); Creatinine* 0.7 mg/dL (0.5-1.5); Est. Creatinine Clearance* 109.78; Estimated Glomerular Filt Rate 126 ml/min
[2023-11-18 14:42] LABS: Calcium* 9.3 mg/dL (8.4-10.6); Glucose* 84 mg/dL (60-115)
--- OUTSIDE RECORDS SUMMARY | 2023-11-18 14:49 | XMS_ITS | Clinical Summary ---
Author Name Unknown Organization [facility] Address [address] [place] [address] Care Team Providers Care Political Science Professor Name Role Phone Elsewhere, Pcp Primary Care Provider Unavailabl e Source Comments Patient records contain information from all sites at [facility]. For routine questions regarding patient records, call [phone] during business hours, M-F 8:00 AM - 5:00 PM Central Time. Record requests for emergency care only can be directed to [phone] at any time.[facility] Allergies Active Allergy Reactions Criticality Noted Date Comments Estrogens Other (see comments) 07/29/2019 Prochlorperazine Anxiety 06/14/2019 Possible seizure lasted 30-60 seconds. She recalls the episode. Medications Medication Sig Dispensed Refills Start Date End Date Status sertraline (ZOLOFT) 100 mg tablet Take 200 mg by mouth daily. Active diclofenac sodium (VOLTAREN) 75 mg EC tablet Take 75 mg by mouth daily. 07/01/2019 Active acetaminophen (TYLENOL ORAL) Take by mouth as needed. Active amitriptyline (ELAVIL) 10 mg tablet 1 tab every night for 1 week. If symptoms not improved increase weekly by 1 tab daily per med sched to maximum of 5 tab nightly. 105 tablet 07/29/2019 Active amitriptyline (ELAVIL) 50 mg tablet Take 1 tab every evening. If max dose reached with 10 mg tab per med sched, switch to 50 mg tab and take 1 tab every night. 30 tablet 11 07/29/2019 Active Active Problems No known active problems Immunizations Name Administration Dates Next Due DTaP (Infanrix, [employer]) 04/12/2008,,01/18/2003,2002 ,2002 HepB, Unspecified 04/06/2007 Hib-HepB 2002,2002 IPV 04/12/2008, 7,01/18/2003,2002 ,2002 Influenza (IM) Preservative Free 04/23/2011 MMR 04/12/2008,08/05/2003 PCV7 (discontinued) 08/05/2003,01/18/2003,2002,2002 DANILO 04/12/2008,08/05/2003 Social History Tobacco Use Types Packs/Day Years Used Date Smoking Tobacco: Never Alcohol Use Standard Drinks/Week Comments Never 0 (1 standard drink = 0.6 oz pur e alcohol) AUDIT-C Answer Date Recorded Frequency of Alcohol Consumption Never 06/07/2019 Average Number of Drinks Not on file 019 Frequency of Binge Drinking Not on file 05/21 Nutrition Answer Date Recorded Nutrition: EVOO Fat Source Unknown 09/22 Nutrition: Servings of Fruits/Vegetables per Day Not on file 09/22/2020 Dental Answer Date Recorded Dental: Regular Dentist Unknown 09/23/19 23 Sex and Gender Information Value Date Recorded Sex Assigned at Not on file Gender Identity Not on file Sexual Orientation Not on file Last Filed Vital Signs Vital Sign Reading Time Taken Comments Blood Pressure 119/61 07/09/2023 9:00 PM [facility] Pulse 76 07/09/2023 9:00 PM [facility] Temperature 36.3 ??C (97.3 ??F) 07/09/2023 6:18 PM CS T Respiratory Rate 18 07/09/2023 9:00 PM [facility] Oxygen Saturation 99% 07/09/2023 9:00 PM [facility] Inhaled Oxygen Concentration - - Weight 93.6 kg (206 lb 5.6 oz) 07/09/2023 6:15 P M [facility] Height 160.5 cm (5' 3.19) 07/29/2019 7:53 AM CS T Body Mass Index - - Plan of Treatment Health Maintenance Due Date Last Done Comments Cervical Cancer Screening 2002 Chlamydia and Gonorrhea Screening 2002 HIV Screening 2002 Hearing Screening during Well Child Visit 2002 Hepatitis C Screening 2002 1 week Well Child Check-Up 2002 1 month Well Child Check-Up 2002 2 month Well Child Check-Up 2002 4 month Well Child Check-Up 2002 6 month Well Child Check-Up 2002 9 month Well Child Check-Up 03/16/2003 12 month Well Child Check-Up 06/16/2003 15 month Well Child Check-Up 09/16/2003 18 month Well Child Check-Up 12/15/2003 2 year Well Child Check-Up 06/16/2004 30 month Well Child Check-Up 12/14/2004 3 year Well Child Check-Up 06/16/2005 Well Child Check-Up Completed in Past Year 06/16/2005 4 year Well Child Check-Up 06/16/2006 5 year Well Child Check-Up 06/16/2007 6 year Well Child Check-Up 06/16/2008 7 year Well Child Check-Up 06/16/2009 8 year Well Child Check-Up 06/16/2010 9 year Well Child Check-Up 06/16/2011 10 year Well Child Check-Up 06/16/2012 11 year Well Child Check-Up 06/16/2013 12 year Well Child Check-Up 06/16/2014 13 year Well Child Check-Up 06/16/2015 14 year Well Child Check-Up 06/16/2016 15 year Well Child Check-Up 06/16/2017 16 year Well Child Check-Up 06/16/2018 17 year Well Child Check-Up 06/16/2019 18 year Well Child Check-Up 06/16/2020 19 year Well Child Check-Up 06/16/2021 20 year Well Child Check-Up 06/16/2022 COVID-19 Vaccine (2022-24 season) 2023 08/07/2022 Influenza Vaccine (#1) 2023 3, 04/30/2013, 04/23/2011 23 year Well Child Check-Up 06/16/2023 Well Child Check-Up ([facility]) 06/16/2023 Depression Screening (Annual PHQ-2) 07/21/2023 DTaP,Tdap,and Td Vaccines (6 - Td or Tdap) 10/18/2024 10/18/2014, 04/12/2008, 04/12/2008, Additional history exists Pneumococcal vaccine (0-64 years) Aged Out 08/05/2003, 01/18/2003, 2002, Additional history exists No longer eligible based on patient's age to complete this topic Hepatitis B Vaccines Completed 04/06/2007, 04/06/2007, 04/06/2007, Additional history exists HPV Vaccines Completed 09/19/2017, 08/2014, 04/21/2015 Meningococcal Vaccine Completed 04/03/2020 , 04/03/2020, 10/18/2014, Additional history exists Care Teams Political Science Professor Relationship Specialty Start Date End Date Elsewhere, Pcp PCP - General Gasket Former 07/29/19
--- OUTSIDE RECORDS SUMMARY | 2023-11-18 14:49 | XMS_ITS | Referral Summary ---
Author Name Unknown Organization [facility] Address [address] [place] [address] Care Team Providers Care Glycerin Operator Name Role Phone Elsewhere, Pcp Primary Care Provider Unavailabl e Source Comments Patient records contain information from all sites at [facility]. For routine questions regarding patient records, call [phone] during business hours, M-F 8:00 AM - 5:00 PM Central Time. Record requests for emergency care only can be directed to [phone] at any time.[facility] Allergies Active Allergy Reactions Criticality Noted Date [...] Comments Blood Pressure 119/61 07/09/2023 9:00 PM [employer] Pulse 76 07/09/2023 9:00 PM [employer] Temperature 36.3 ??C (97.3 ??F) 07/09/2023 6:18 PM CS T Respiratory Rate 18 07/09/2023 9:00 PM [employer] Oxygen Saturation 99% 07/09/2023 9:00 PM [employer] Inhaled Oxygen Concentration - - Weight 93.6 kg (206 lb 5.6 oz) 07/09/2023 6:15 P M [employer] Height 160.5 cm (5' 3.19) 07/29/2019 7:53 AM CS T Body Mass Index - - Plan of Treatment Not on file Care Teams Glycerin Operator Relationship Specialty Start Date End Date Elsewhere, Pcp PCP - General Core Rescuer 07/29/19
--- OUTSIDE RECORDS SUMMARY | 2023-11-18 14:49 | XMS_ITS ---
Author Name Unknown Organization [facility] Address [address] [place] [address] Care Team Providers Care Lens Assistant Name Role Phone Unavailable Unavailable Unavailable Surgery Details Not on file Complications Check Surgery Details section. Procedure Estimated Blood Loss Check Surgery Details section. Procedure Findings Check Surgery Details section. Procedure Specimens Taken Check Surgery Details section.
--- OUTSIDE RECORDS SUMMARY | 2023-11-18 14:50 | XMS_ITS | Clinical Summary ---
Author Name Unknown Organization [employer] [facility] [employer] [facility] Address [place], [place] [address] Care Team Providers Care Sensory Scientist Name Role Phone Ping George MD Primary Care Provider [phone] Allergies Active Allergy Reactions Criticality Noted Date Comments Estrogens Headache 10/17/2017 Got worse headache on oral contraceptives Prochlorperazine Tremors 06/14/2019 Possible seizure lasted 30-60 seconds. She recalls the episode. Medications Medication Sig Dispensed Refills Start Date End Date Status escitalopram oxalate (LEXAPRO) 10 mg tabletIndications: MDD (major depressive disorder), recurrent episode, moderate (HC) Take 1/2 tablet once daily for 1 week, then increase to 1 tablet once daily. 90 Tablet 1 10/02/2023 Active SUMAtriptan (IMITREX) 50 mg tabletIndications: Migraine without aura and without status migrainosus, not intractable Take 1 Tablet (50 mg) by mouth 2 times daily if needed for Migraine. Give at minimum 2hrs apart. Max Dose: 200mg per 24hrs. 9 Tablet 11 11/07/2023 Active topiramate (TOPAMAX) 25 mg tabletIndications: Migraine without aura and without status migrainosus, not intractable Take 25 mg once daily for 2 weeks, then increase to 2 tablets (50 mg) once daily. 180 Tablet 1 11/11/2023 Active methylPREDNISolone (Medrol, Josué,) 4 mg tabletIndications: Migraine without aura and without status migrainosus, not intractable,Chroni c TMJ pain Take by mouth as instructed per packaging. 21 Tablet 11/11/2023 Active nortriptyline (PAMELOR) 25 mg capsuleIndications :Migraine without aura and without status migrainosus, not intractable Take 1 Capsule (25 mg) by mouth at bedtime for 7 days. 7 Capsule 11/11/2023 4 Active albuterol HFA (PRO-AIR; VENTOLIN; PROVENTIL) 90 mcg/actuation inhalerIndications :Mild intermittent asthma without complication Inhale 1-2 Puffs by mouth every 4 hours if needed for Shortness Of Breath or Wheezing. 18 g 11 11/11/2023 Active SUMAtriptan (IMITREX) 50 mg tabletIndications: Migraine without aura and without status migrainosus, not intractable Take 1 Tablet (50 mg) by mouth 2 times daily if needed for Migraine. Give at minimum 2hrs apart. Max Dose: 200mg per 24hrs. 10 Tablet 11 08/26/2023 4 Discontinue d(Reorder (E-cancel not sent)) nortriptyline (PAMELOR) 10 mg capsuleIndications :Migraine without aura and without status migrainosus, not intractable Take 3 Capsules (30 mg) by mouth at bedtime. 270 Capsule 3 10/05/2023 4 Discontinue d(*Medicati on adjustment) nortriptyline 50 mg capsuleIndications :Headache syndrome Take 1 Capsule (50 mg) by mouth at bedtime. 90 Capsule 3 10/23/2023 4 Discontinue d(*Medicati on adjustment) nortriptyline (PAMELOR) 25 mg capsuleIndications :Migraine without aura and without status migrainosus, not intractable Take 1 Capsule (25 mg) by mouth at bedtime for 14 days. 14 Capsule 11/11/2023 4 Discontinue d(Reorder (E-cancel not sent)) Hospital, Clinic, or Other Facility Administered Medication Ordered Dose Route Frequency Start Date End Date Status etonogestrel subdermal implant (NEXPLANON) 1 EachIndications:Nexplanon insertion 1 Each Sdrm Q 3 YEARS 04/03/2020 Active Active Problems Problem Noted Date Diagnosed Date Migraine without aura and wi thout status migrainosus, not intractable 11/11/2023 Irritable bowel syndrome wit h both constipation and diarrhea 06/03/2018 Anxiety 04/10/2018 Headache syndrome 10/17/2017 Overview: Had dizziness and headache yesterday but was doing overall better Neurology mri normal - thinking dizziness connected to headache considering stress playing a role. Exercise-induced asthma 09/19/2017 Need for prophylactic vaccin ation and inoculation against other combinations of diseases 04/06/2007 Encounters Date Type Department Care Team Description 11/18/2023 Nurse Triage [address] [address] Ping George MD Headache 11/11/2023 7:30 AM CDT Office Visit [address] [address] Lauryn Tate PA Headache (New dose of headache med has not been working-has been getting daily headaches, last wknd with migraine-has been more difficult to get them to go away-all on left side) 11/11/2023 Travel 10/31/[address] [address] Lauryn Tate PA Prior Authorization (SUMAtriptan (IMITREX) 50 mg tablet - DENIED ) 10/29/[address] [address] Lauryn Tate PA Prior Authorization (nortriptyline 50 mg capsule - PA NOT NEEDED ) 10/26/2023 Orders Only [address] [address] Lauryn Tate PA <No scans attached> 10/07/[address] [address] Lauryn Tate PA Prior Authorization (nortriptyline (PAMELOR) 10 mg capsule - CLOSED) 10/07/[address] [address] Lauryn Tate PA Prior Authorization (escitalopram oxalate (LEXAPRO) 10 mg tablet - CLOSED) 10/02/2023 10:10 AM CDT Office Visit [facility] [address] [address] Lauryn Tate PA Medication Management (Struggling with depression and anxiety-had been on sertraline a few years ago and would like to get back on it-also wants correct dose of headache med) 10/02/2023 Travel 08/26/2023 2:30 PM SOFTWARE SUPPORT REPRESENTATIVE Office Visit [facility] [address] [place] [address] Lauryn Tate PA Headache 08/26/2023 Travel from Last 3 Months Immunizations Name Administration Dates Next Due DTaP 04/12/2008, 7,01/18/2003,11/17,2002 HIB-HepB (Comvax) 2002,2002 HPV 9 (Gardasil 9) 09/19/2017 Hepatitis A (Peds) 04/03/2020,09/19/2017 Hepatitis B (Peds) 04/06/2007 Hepatitis B, Unspecified 04/06/2007 Human Papilloma Virus Vaccine 04/21/2015 Inactivated Polio Vaccine 04/12/2008,,01/18/2003,11/17,2002 Influenza, IIV3 (Age 6-35 mos) 04/23/2011 Influenza, IIV3 (Age >=3 years) 04/30/2013 MMR 04/12/2008,08/05/2003 Meningococcal Vaccine (Menveo) 04/03/2020,2014 Pneumococcal conj 7-Valent (Prevnar 7) 0 08/05/2003,01/18/2003,2002,09/16 Tdap 10/18/2014 Varicella Vaccine 04/12/2008,08/05/2003 Family History Medical History Relation Name Comments Other Father Other Mother cancers--in aun ts--breast, uncles and grandfather--colon, grandma--lung Relation Name Status Comments Brother 1 Alive brissa--4 Brother 2 Alive gabe--22mon Father Alive Mother Alive Social History Tobacco Use Types Packs/Day Years Used Date Smoking Tobacco: Never Smokeless Tobacco: Never Tobacco Cessation:Counseling Given: Yes Comments:no passive smoke exposure Alcohol Use Standard Drinks/Week Comments No 0 (1 standard drink = 0.6 oz pur e alcohol) PHQ-2 Answer Date Recorded PHQ-2 TOTAL SCORE 4 10/02/2023 Social Connections Answer Date Recorded Frequency of Communication with Friends and Fami ly 0 04/07/2023 Financial Resource Strain Answer Date R ecorded Difficulty of Paying Living Expenses 3 04/07/2023 Difficulty of Paying Living Expenses Not on file 04/07/2023 Food Insecurity Answer Date Recorded Worried About Running Out of Food in the Last Ye ar 1 04/07/2023 Transportation Needs Answer Date Record ed Lack of Transportation (Medical) 1 04/07/2023 Housing Stability Answer Date Recorded Unable to Pay for Housing in the Last Year 1 04/07/2023 Sex and Gender Information Value Date Recorded Sex Assigned at Not on file Gender Identity Not on file Sexual Orientation Not on file Obstetrics History Para Term AB IAB SAB Ectopic Multiple Livin g Live Births 0 0 0 0 0 0 0 0 0 0 0 Last Filed Vital Signs Vital Sign Reading Time Taken Comments Blood Pressure 154/122 11/11/2023 7:25 AM CDT Pulse 117 11/11/2023 7:25 AM CDT Temperature 36.8 ??C (98.3 ??F) 12/19/2022 1:16 AM CD T Respiratory Rate 20 12/19/2022 1:16 AM CDT Oxygen Saturation 99% 11/11/2023 7:25 AM CDT Inhaled Oxygen Concentration - - Weight 102.1 kg (225 lb) 11/11/2023 7:25 AM CDT Height 163.8 cm (5' 4.5) 05/14/2023 10:07 AM CD T Body Mass Index - - Plan of Treatment Upcoming Encounters Date Type Department Care Team (Late st Contact Info) Description 11/24/2023 11:00 AM CDT Ancillary Procedure [facility] [address] [place] [address] Health Maintenance Due Date Last Done Comments HIV for age 15-65 2017 Chlamydia for age 16-24 2018 Hepatitis C screening for age 18-79 2020 COVID-19 vaccine series ( season) 2023 08/07/2022 Pap test for age 21-65 2023 Influenza for age 9-49 03/21/2024 04/30/2013 BMI (ht and wt on same day) for age 18+ 05/14/2024 05/14/2023, 09/05/2020 Depression screening for age 12+ 10/01/2024 10/02/2023, 08/30/2022, 08/29/2022, Additional history exists Tetanus booster 10/18/2024 10/18/2014 Pneumococcal series for age 6-64 Aged Out 08/05/2003, 01/18/2003, 2002, Additional history exists No longer eligible based on patient's age to complete this topic Tdap Completed 10/18/2014 HPV series for age 9-26 Completed 09/19/2017, 04/21 Meningococcal series for age 11-21 Completed 04/03/2020, 10/18/2014 Procedures Procedure Name Priority Date/Time Associated Diagnosis Comments CBC WITH AUTO DIFFERENTIAL Routine 08/26/2023 3:15 PM SOFTWARE SUPPORT REPRESENTATIVE Migraine without aura and without status migrainosus, not intractable TSH Routine 08/26/2023 3:15 PM SOFTWARE SUPPORT REPRESENTATIVE Migraine without aura and without status migrainosus, not intractable VITAMIN D 25 (DEFICIENCY) Routine 08/26/2023 3:15 PM SOFTWARE SUPPORT REPRESENTATIVE Migraine without aura and without status migrainosus, not intractable COMP METABOLIC PANEL Routine 08/26/2023 3:15 PM SOFTWARE SUPPORT REPRESENTATIVE Migraine without aura and without status migrainosus, not intractable CBC WITH AUTO DIFFERENTIAL Routine 08/26/2023 3:15 PM SOFTWARE SUPPORT REPRESENTATIVE Migraine without aura and without status migrainosus, not intractable from Last 3 Months Results * (ABNORMAL) CBC WITH AUTO DIFFERENTIAL (08/26/2023 3:15 PM SOFTWARE SUPPORT REPRESENTATIVE) [facility] WHITE BLOOD COUNT 12.2(H) 4.5 - 11.0 thou/cu mm 08/26/2023 3:22 PM SOFTWARE SUPPORT REPRESENTATIVE [facility] RED BLOOD COUNT 4.98 4.00 - 5.20 mil/cu mm 08/26/2023 3:22 PM [facility] HEMOGLOBIN 16.1(H) 12.0 - 16.0 g/dL 08/26/2023 3:22 PM [facility] HEMATOCRIT 44.5 33.0 - 51.0 % 08/26/2023 3:22 PM [facility] MCV 89 80 - 100 fL 08/26/2023 3:22 PM [facility] MCH 32.3 26.0 - 34.0 pg 08/26/2023 3:22 PM [facility] MCHC 36.2(H) 32.0 - 36.0 g/dL 08/26/2023 3:22 PM [facility] RDW 12.9 11.5 - 15.5 % 08/26/2023 3:22 PM [facility] PLATELET COUNT 326 140 - 440 thou/cu mm 08/26/2023 3:22 PM [facility] MPV 9.0 6.5 - 11.0 fL 08/26/2023 3:22 PM [facility] % NEUT 71.6 % 08/26/2023 3:22 PM [facility] % LYMPH 23.7 % 08/26/2023 3:22 PM [facility] % MONO 3.9 % 08/26/2023 3:22 PM [facility] % EOS 0.2 % 08/26/2023 3:22 PM [facility] % BASO 0.6 % 08/26/2023 3:22 PM [facility] ABSOLUTE NEUTROPHILS 8.7(H) 1.7 - 7.0 thou/cu mm 08/26/2023 3:22 PM [facility] ABSOLUTE LYMPHOCYTES 2.9 0.9 - 2.9 thou/cu mm 08/26/2023 3:22 PM [facility] ABSOLUTE MONOCYTES 0.5 <0.9 thou/cu mm 08/26/2023 3:22 PM [facility] ABSOLUTE EOSINOPHILS 0.0 <0.5 thou/cu mm 08/26/2023 3:22 PM SOFTWARE SUPPORT REPRESENTATIVE [facility] ABSOLUTE BASOPHILS 0.1 <0.3 thou/cu mm 08/26/2023 3:22 PM SOFTWARE SUPPORT REPRESENTATIVE [facility] Blood BLOOD SPECIMEN / Unknown Venipuncture / Unknown 08/26/2023 3:15 PM SOFTWARE SUPPORT REPRESENTATIVE 08/26/2023 3:16 PM SOFTWARE SUPPORT REPRESENTATIVE Lauryn MARTINEZ HEMATOLOGY [facility] [address] [place] [address], * VITAMIN D 25 (DEFICIENCY) (08/26/2023 3:15 PM SOFTWARE SUPPORT REPRESENTATIVE) VITAMIN D TOTAL 29.3 20.0 - 80.0 ng/mL 08/26/2023 10:32 PM SOFTWARE SUPPORT REPRESENTATIVE [facility] Blood BLOOD SPECIMEN / Unknown Venipuncture / Unknown 08/26/2023 3:15 PM SOFTWARE SUPPORT REPRESENTATIVE 08/26/2023 3:16 PM SOFTWARE SUPPORT REPRESENTATIVE Narrative [facility] - 08/26/2023 10:32 PM SOFTWARE SUPPORT REPRESENTATIVE ? Vitamin D Status Deficiency: ? <20 ng/mL Insufficiency: ?20-29 ng/mL Sufficiency: ?30-80 ng/mL Possible Toxicity: ??>80 ng/mL Based on [place] [employer] recommendations Biotin supplements may cause clinically significant interference for this test assay. ??If interference is suspected, it is strongly recommended that biotin is discontinued for at least one week prior to retesting. Lauryn MARTINEZ SEND OUTS [facility] [address] [place] [address], [place] * TSH (08/26/2023 3:15 PM SOFTWARE SUPPORT REPRESENTATIVE) TSH 2.19 0.27 - 4.20 uIU/mL 08/26/2023 10:32 PM SOFTWARE SUPPORT REPRESENTATIVE [facility] Blood BLOOD SPECIMEN / Unknown Venipuncture / Unknown 08/26/2023 3:15 PM SOFTWARE SUPPORT REPRESENTATIVE 08/26/2023 3:16 PM SOFTWARE SUPPORT REPRESENTATIVE [facility] - 08/26/2023 10:32 PM SOFTWARE SUPPORT REPRESENTATIVE In Adults, TSH values between 5.00 and 10.00 uIU/ml do not necessarily indicate the presence of Hypothyroidism. Correlation with clinical findings such as presence of goiter and/or Thyroperoxidase (TPO) Antibody may be helpful. For more information please refer to BRANDIN 2004; 291: [phone]. Lauryn MARTINEZ CHEMISTRY [facility] [address] [place] [address], * (ABNORMAL) COMP METABOLIC PANEL (08/26/2023 3:15 PM SOFTWARE SUPPORT REPRESENTATIVE) SODIUM 136 136 - 145 mmol/L 08/26/2023 10:32 PM [facility] POTASSIUM 4.1 3.5 - 5.1 mmol/L 08/26/2023 10:32 PM [facility] CHLORIDE 103 98 - 107 mmol/L 08/26/2023 10:32 PM [facility] CO2,TOTAL 21(L) 22 - 29 mmol/L 08/26/2023 10:32 PM [facility] ANION GAP 12 5 - 18 08/26/2023 10:32 PM [facility] GLUCOSE 99 70 - 99 mg/dL 08/26/2023 10:32 PM [facility] CALCIUM 9.4 8.6 - 10.0 mg/dL 08/26/2023 10:32 PM [facility] BUN 9 6 - 20 mg/dL 08/26/2023 10:32 PM [facility] CREATININE 0.79 0.50 - 0.90 mg/dL 08/26/2023 10:32 PM [facility] BUN/CREAT RATIO 11 10 - 20 10:32 PM [facility] eGFR >90 >90 mL/min/1.7 3m2 08/26/2023 10:32 PM [facility] Comment:As of 2021, eG FR is calculated by the CKD-EPI creatinine equation without race adjustment. ??eGFR can be influenced by muscle mass, exercise, and diet. ??The reported eGFR is an estimation only and is only applicable if the renal function is stable. ALBUMIN 4.5 4.0 - 4.9 g/dL 08/26/2023 10:32 PM SOFTWARE SUPPORT REPRESENTATIVE [facility] PROTEIN,TOTAL 7.2 6.0 - 8.0 g/dL 08/26/2023 10:32 PM SOFTWARE SUPPORT REPRESENTATIVE [facility] BILIRUBIN,TOTAL 0.7 0.0 - 1.2 mg/dL 08/26/2023 10:32 PM [facility] ALK PHOSPHATASE 70 35 - 104 IU/L 08/26/2023 10:32 PM [facility] ALT (SGPT) 11 10 - 35 IU/L 08/26/2023 10:32 PM [facility] AST (SGOT) 25 10 - 35 IU/L 08/26/2023 10:32 PM [facility] Blood BLOOD SPECIMEN / Unknown Venipuncture / Unknown 08/26/2023 3:15 PM SOFTWARE SUPPORT REPRESENTATIVE 08/26/2023 3:16 PM SOFTWARE SUPPORT REPRESENTATIVE Lauryn MARTINEZ CHEMISTRY [facility] [address] [place] [address], from Last 3 Months Care Teams Sensory Scientist Relationship Specialty Start Date End Date Ping George MD [address] [place] [address] PCP - General Family Practice 08/18/20
[2023-11-18 15:41] LABS: HCG Qualitative Serum* Negative (Negative)
[2023-11-18 17:02] LABS: Troponin I* < 0.01 ng/mL (0.01-0.04)
== END 2023-11-18 17:45 | disposition home or self-care (01) ==
PROVIDERS: Emergency Medicine; Emergency Provider Student in an Organized Health Care Education/Training Program; PCP Physician Assistant
DX: R51.9 Headache, unspecified (principal); R55 Syncope and collapse
CPT/HCPCS: 36415; 70450; 80048; 84443; 84484; 84703; 85025; 93005; 96361; 96374; 96375; 99284; 99285; J1200; J1885; J7030

== ENCOUNTER 2023-11-21 20:56 | Emergency (ER) | payer OTHER, SELFPAY ==
[2023-11-21 21:15] VITALS: BP 156/88; PULSE 107; RESP 20; TEMP 36.8; O2SAT 98; BMI 37.8
--- NOTE | 2023-11-21 21:30 | ED.ARRPALP ---
HPI - Arrhythmia/Palpitations General Time Seen by Provider: 21:30 Date Seen: 11/21/23 Chief Complaint: Arrhythmia/Palpitations Stated Complaint: chest pain, dizzy Time Seen by Provider: 11/21/23 21:29 Source: patient, RN notes reviewed and old records reviewed Mode of arrival: ambulatory Limitations: no limitations History of Present Illness HPI narrative: This 23-year-old female is accompanied by her boyfriend coming in with complaint of chest discomfort. She states she was just lying down around 8:00 p.m. when she started to feel some chest pressure and heaviness. She had just woken up from a nap. She felt like her heart rate went up with this, did have her watch on. She states baseline her heart rate is a little fast in the low 100s when ever she is up, is usually lower when she is resting. She has not had any cough cold symptoms. She maybe had a little nasal congestion last week. Boyfriend did have cold symptoms but she never got anything more than a little nasal congestion. She has had no recent fevers chills. She felt a little nausea with this tonight but no reflux symptoms. She is quite concerned, states her mom and aunt think she needs to see Cardiology. Did review with her and her boyfriend that unless there is a need for emergent cardiology intervention, cardiology visits do not happen in the ER. She has Nexplanon in for contraception. She maybe felt a little short of breath while this was going on. She was recently in on November 17, was in for headache, complaint of chest symptoms then. From that visit, they thought Topamax may be responsible for some of her symptoms. She has not taken it since that day. She does talk about the family history. She states she has a cousin that is young that is been diagnosed with a big heart that ?feels with fluid?. She also states she has a cousin that has a probable VSD. There other family history issues. I did review from the ER note that there is family members with ?bridge? in their hearts. He thought might be that this could be Jsspp-[id number]-Wbhgz potentially by the other ED provider but it is not definitively known. There was maybe a question of SVT. Patient's mom was on speaker phone initially when I came in the room but patient's phone did . The patient herself is not been diagnosed with any arrhythmia or cardiac issues. She does have a past medical history significant for exercise-induced asthma, anxiety, migraine headaches, irritable bowel syndrome. She does report many passing out events that have been going on for a while now. Her orthostatic vitals were normal during her last ER visit. They admit she might be drinking a bit too much caffeine but she states she also drinks a lot of water. No illicit drug use, no tobacco products. Related Data Home Medications Medication Instructions Recorded Confirmed albuterol 90 mcg/actuation aerosol 2 spray inhalation PRN 01/01/23 05/06/23 inhaler escitalopram oxalate 10 mg tablet 10 mg PO DAILY 11/18/23 11/21/23 sumatriptan succinate 50 mg tablet 50 mg PO BID migraine 11/18/23 11/21/23 Allergies Allergy/AdvReac Type Severity Reaction Status Date / Time No Known Drug Allergies Allergy Verified 11/21/23 21:15 Review of Systems Status of ROS: Reports: 6 or more systems reviewed and unremarkable except as noted in History and below PFSH FOR[facility]LY [facility] Medical History Depression ?F32.A - Depression, unspecified (ICD-10) Asthma ?J45.909 - Unspecified asthma, uncomplicated (ICD-10) Social History Smoking Status: Never smoker Do you use any of these nicotine containing products: None Second hand tobacco smoke exposure: No How often do you have a drink containing alcohol: never AUDIT-C Alcohol total score: 0 Non-prescribed substance use: denies use Little interest or pleasure in doing things: not at all Feeling down, depressed, or hopeless: not at all service: No Exam Const: Vital Signs, click to edit/add: Vital Signs - 24 hr 11/21/23 21:15 11/21/23 21:32 11/21/23 22:01 Temperature 98.3 F Pulse Rate [Right Pulse Oximeter] 107 H Respiratory Rate 20 Blood Pressure 130/82 128/87 Blood Pressure [Ri ght Upper Arm] 156/88 H Pulse Oximetry 98 Oxygen Delivery Me thod Room Air 11/21/23 22:31 Temperature Pulse Rate [Right Pulse Oximeter] Respiratory Rate Blood Pressure 128/79 Blood Pressure [Ri ght Upper Arm] Pulse Oximetry Oxygen Delivery Me thod This is a very pleasant 23-year-old female that is alert, interactive, no apparent distress but mildly anxious. At times when I am talking to her can see her become more anxious and her heart rate go up. She was in sinus rhythm in the upper 90s when I 1st came into the room on the monitor. Pupils are equal round, conjugate gaze, sclera clear. Symmetrical facial function, face atraumatic. Neck without any adenopathy, no thyromegaly masses or nodules. Lungs are clear, good air entry, no wheezing or crackles. CV regular rate and rhythm, no murmur, normal S1-S2, no S3-S4. Abdomen is soft, no rebound or guarding, no organomegaly. She has no lower extremity edema. Patient was ambulatory into the ED of her own accord. Documenting provider has reviewed patient's vital signs: yes Course Course ED Course: Patient is initial EKG was sinus tachycardia at 101 beats per minute, believe her admitting pulse was 107. I do definitely perceive some anxiety but there is certainly family history of cardiac issues. We will do a troponin, make sure that there is nothing like myocarditis. It is doubtful that a patient her age would have ischemic disease but certainly will be considered. Her initial EKG outside of the mild tachycardia is not revealing any ischemic change. Will do a D-dimer, consider thromboembolic disease. Will do chest CT PE protocol if her D-dimer is elevated. She does endorse elevated heart rate baseline. If her workup here is negative, reviewed with her that she is going to have to see Cardiology outpatient, would also recommend an echo for her. These would have to be obtained through clinic. Reevaluation(s) Time of Reevaluation #1: 00:28 Reevaluation #1: Have reviewed with patient that her troponins remain normal. We are going to allow her discharge for further outpatient follow-up. We discussed consideration for ZIO patch for outpatient cardiac monitoring, echo and cardiology follow-up. She states her mom in her onto also wanted her to do the ZIO patch. We unfortunately do not have those here but they can be put on at clinic. Vital Signs Vital signs: Initial Vital Signs Temperature 98.3 F 11/21/23 21:15 Temperature Source Temporal Artery Scan 11/21/23 21:15 Pulse Rate 107 H 11/21/23 21:15 Pulse Rhythm Regular 11/21/23 21:15 Pulse Strength 3+ Normal 11/21/23 21:15 Respiratory Rate 20 11/21/23 21:15 Blood Pressure 156/88 H 11/21/23 21:15 Blood Pressure Mean 110 H 11/21/23 21:15 Pulse Oximetry 98 11/21/23 21:15 Oxygen Delivery Method Room Air 11/21/23 21:15 Vital Signs Temperature 98.3 F 11/21/23 21:15 Pulse Rate 107 H 11/21/23 21:15 Respiratory Rate 20 11/21/23 21:15 Blood Pressure 156/88 H 11/21/23 21:15 Pulse Oximetry 98 11/21/23 21:15 Oxygen Delivery Method Room Air 11/21/23 21:15 Temperature 98.3 F 11/21/23 21:15 Pulse Rate 107 H 11/21/23 21:15 Respiratory Rate 20 11/21/23 21:15 Blood Pressure 128/79 11/21/23 22:31 Pulse Oximetry 98 11/21/23 21:15 Oxygen Delivery Method Room Air 11/21/23 21:15 MDM - Arrhythmia/Palpitations Lab Data Attestation: I reviewed the patient's lab results. Labs: Lab Results 11/21/23 11/21/23 11/21/23 Range/Units 22:00 22:00 23:15 WBC 13.49 H (4.50-11.00) K/uL RBC 5.00 (4.00-5.20) m/uL Hgb 15.7 (12.0-16.0) gm/dL Hct 45.2 (33.0-51.0) % MCV 90 (80-100) fL MCH 31 (26-34) pg MCHC 35 (32-36) gm/dL RDW Coeff of Trae 12.3 (11.5-15.5) % Plt Count 394 (140-440) K/uL Neut % (Auto) 55.2 (42.0-72.0) % Lymph % (Auto) 35.8 (20-44) % Owen % (Auto) 7.3 (0.0-11.0) % Eos % (Auto) 1.0 (0.0-7.0) % Baso % (Auto) 0.6 (0.0-3.0) % Neut # (Auto) 7.40 H (1.7-7.0) K/uL Lymph # (Auto) 4.80 H (0.90-2.90) K/uL Owen # (Auto) 1.00 H (0.00-0.90) K/UL Eos # (Auto) 0.10 (0.00-0.50) K/uL Baso # (Auto) 0.10 (0.00-0.30) K/uL Abs Immat Gran (auto) 0.00 (0.00-0.30) K/uL Imm/Tot Granulo (auto) 0.1 % ESR 2 (2-20) mm/hr D-Dimer Quant (PE/DVT) 0.31 (0.00-0.50) ug/ml Sodium 142 (135-149) mmol/L Potassium 4.5 (3.6-5.1) mmol/L Chloride 108 (96-114) mmol/L Carbon Dioxide 28 (20-32) mmol/L Anion Gap 6 L (7-15) mEq/L BUN 12 (5-24) mg/dL Creatinine 0.7 (0.5-1.5) mg/dL Estimated Creat Clear 109.78 Estimated GFR 126 ml/min Glucose 89 (60-115) mg/dL Calcium 9.3 (8.4-10.6) mg/dL Total Bilirubin 0.5 (0.1-1.5) mg/dL AST 27 (12-35) U/L ALT 18 (4-35) U/L Alkaline Phosphatase 104 (40-150) U/L Troponin I < 0.01 L Cancelled (0.01-0.04) ng/mL C-Reactive Protein < 0.5 L (0.5-1.0) mg/dL NT-Pro-B Natriuret Pep < 20 pg/mL Total Protein 7.3 (6.0-8.3) g/dL Albumin 4.3 (3.3-5.0) g/dL POC Troponin I 0.00 L 0.00 L (0.01-0.04) ng/ml ECG Data Attestation: I personally reviewed and interpreted this ECG as follows: (Sinus tachycardia, rate 101 beats per minute. No ischemic change, no acute infarct. QT corrected 425 milliseconds.) ECG interpretation date: 11/21/23 ECG interpretation time: 21:30 Prior ECG tracings: available for review (Compared to EKG from 11/18/2023, patient is in sinus tachycardia today, prior EKG was normal and rate was 85 beats per minute.) Discharge Plan Discharge Clinical Impression: Atrial tachycardia Chest pain Qualifiers: Chest pain type: unspecified Qualified Code(s): R07.9 - Chest pain, unspecified Patient Disposition: Home, Self-Care Condition: Stable Additional Instructions: Need to follow-up with your primary care provider as soon as possible next week. I do recommend cardiology referral, consideration for echo an ZIO patch. Your primary care provider can make decisions on whether not they feel these things are warranted. In the meantime, try to cut down on caffeine. If you feel you have worsening symptoms, have further concerns, we are always here in the ER to re-evaluate you. Activity Level: Activity as Tolerated Prescriptions: No Action albuterol 90 mcg/actuation aerosol 2 spray inhalation PRN sumatriptan succinate 50 mg tablet 50 mg PO BID escitalopram oxalate 10 mg tablet 10 mg PO DAILY Follow Up/Referrals: Lauryn Tate PA-C [Primary Care Provider] - Stand Alone Forms: [employer] Info Instructions
[2023-11-21 21:32] VITALS: BP 130/82
--- OUTSIDE RECORDS SUMMARY | 2023-11-21 21:57 | XMS_ITS | Clinical Summary ---
Author Name Unknown Organization [facility] Address [place], [place] [address] Care Team Providers Care Per Diem Physical Therapist Assistant Name Role Phone Ping George MD Primary Care Provider [phone] Allergies Active Allergy Reactions Criticality Noted Date Comments Estrogens Headache 10/17/2017 Got worse headache on oral contraceptives Prochlorperazine Tremors 06/14/2019 Possible seizure lasted 30-60 seconds. She recalls the episode. Medications Medication Sig Dispensed Refills Start Date End Date Status escitalopram oxalate (LEXAPRO) 10 mg tabletIndications :MDD (major depressive disorder), recurrent episode, moderate (HC) Take 1/2 tablet once daily for 1 week, then increase to 1 tablet once daily. 90 Tablet 1 10/02/2023 Active SUMAtriptan (IMITREX) 50 mg tabletIndications :Migraine without aura and without status migrainosus, not intractable Take 1 Tablet (50 mg) by mouth 2 times daily if needed for Migraine. Give at minimum 2hrs apart. Max Dose: 200mg per 24hrs. 9 Tablet 11 11/07/2023 Active topiramate (TOPAMAX) 25 mg tabletIndications :Migraine without aura and without status migrainosus, not intractable Take 25 mg once daily for 2 weeks, then increase to 2 tablets (50 mg) once daily. 180 Tablet 1 11/11/2023 Active methylPREDNISolon e (Medrol, Josué,) 4 mg tabletIndications :Migraine without aura and without status migrainosus, not intractable,Chron ic TMJ pain Take by mouth as instructed per packaging. 21 Tablet 11/11/2023 Active albuterol HFA (PRO-AIR; VENTOLIN; PROVENTIL) 90 mcg/actuation inhalerIndication s:Mild intermittent asthma without complication Inhale 1-2 Puffs by mouth every 4 hours if needed for Shortness Of Breath or Wheezing. 18 g 11 11/11/2023 Active SUMAtriptan (IMITREX) 50 mg tabletIndications :Migraine without aura and without status migrainosus, not intractable Take 1 Tablet (50 mg) by mouth 2 times daily if needed for Migraine. Give at minimum 2hrs apart. Max Dose: 200mg per 24hrs. 10 Tablet 11 08/26/2023 4 Discontinued (Reorder (E-cancel not sent)) nortriptyline (PAMELOR) 10 mg capsuleIndication s:Migraine without aura and without status migrainosus, not intractable Take 3 Capsules (30 mg) by mouth at bedtime. 270 Capsule 3 10/05/2023 4 Discontinued (*Medication adjustment) nortriptyline 50 mg capsuleIndication s:Headache syndrome Take 1 Capsule (50 mg) by mouth at bedtime. 90 Capsule 3 10/23/2023 4 Discontinued (*Medication adjustment) nortriptyline (PAMELOR) 25 mg capsuleIndication s:Migraine without aura and without status migrainosus, not intractable Take 1 Capsule (25 mg) by mouth at bedtime for 14 days. 14 Capsule 11/11/2023 4 Discontinued (Reorder (E-cancel not sent)) nortriptyline (PAMELOR) 25 mg capsuleIndication s:Migraine without aura and without status migrainosus, not intractable Take 1 Capsule (25 mg) by mouth at bedtime for 7 days. 7 Capsule 11/11/2023 4 Hospital, Clinic, or Other Facility Administered Medication [...] Department Care Team Description 11/18/2023 Nurse Triage [address] [address] Ping George MD Headache 11/11/2023 7:30 AM CDT Office Visit [address] [address] Lauryn Tate PA Headache (New dose of headache med has not been working-has been getting daily headaches, last wknd with migraine-has been more difficult to get them to go away-all on left side) 11/11/2023 Travel 10/31/[address] [address] Lauryn Tate PA Prior Authorization (SUMAtriptan (IMITREX) 50 mg tablet - DENIED ) 10/29/[address] [address] Lauryn Tate PA Prior Authorization (nortriptyline 50 mg capsule - PA NOT NEEDED ) 10/26/2023 Orders Only [address] [address] Lauryn Tate PA <No scans attached> 10/07/[address] [address] Lauryn Tate PA Prior Authorization (nortriptyline (PAMELOR) 10 mg capsule - CLOSED) 10/07/[address] [address] Lauryn Tate PA Prior Authorization (escitalopram oxalate (LEXAPRO) 10 mg tablet - CLOSED) 10/02/2023 10:10 AM CDT Office Visit [place] [address] [address] [facility] [address] Lauryn Tate PA Medication Management (Struggling with depression and anxiety-had been on sertraline a few years ago and would like to get back on it-also wants correct dose of headache med) 10/02/2023 Travel 08/26/2023 2:30 PM PAPER PATTERN INSPECTOR Office Visit [facility] [address] [facility] [place] [address] Lauryn Tate PA Headache 08/26/2023 Travel from [...] Description 11/24/2023 11:00 AM CDT Ancillary Procedure [facility] [address] [place] [address] 11/25/2023 11:30 AM CDT Office Visit [facility] [address] [place] [address] Lauryn Tate PA [address] [place] [address] Health Maintenance Due Date Last Done Comments HIV for age 15-65 2017 Chlamydia for age 16-24 2018 Hepatitis C screening for age 18-79 2020 COVID-19 vaccine series (2 - 2022-24 season) 2023 08/07/2022 Pap test for age [...] WITH AUTO DIFFERENTIAL Routine 08/26/2023 3:15 PM PAPER PATTERN INSPECTOR Migraine without aura and without status migrainosus, not intractable TSH Routine 08/26/2023 3:15 PM PAPER PATTERN INSPECTOR Migraine without aura and without status migrainosus, not intractable VITAMIN D 25 (DEFICIENCY) Routine 08/26/2023 3:15 PM PAPER PATTERN INSPECTOR Migraine without aura and without status migrainosus, not intractable COMP METABOLIC PANEL Routine 08/26/2023 3:15 PM PAPER PATTERN INSPECTOR Migraine without aura and without status migrainosus, not intractable CBC WITH AUTO DIFFERENTIAL Routine 08/26/2023 3:15 PM PAPER PATTERN INSPECTOR Migraine without aura and without status migrainosus, not intractable from Last 3 Months Results * (ABNORMAL) CBC WITH AUTO DIFFERENTIAL (08/26/2023 3:15 PM [facility]) [facility] WHITE BLOOD COUNT 12.2(H) 4.5 - 11.0 thou/cu mm 08/26/2023 3:22 PM [facility] RED BLOOD COUNT 4.98 4.00 - 5.20 mil/cu mm 08/26/2023 3:22 PM [facility] HEMOGLOBIN 16.1(H) 12.0 - 16.0 g/dL 08/26/2023 3:22 PM [facility] HEMATOCRIT 44.5 33.0 - 51.0 % 08/26/2023 3:22 PM [facility] MCV 89 80 - 100 fL 08/26/2023 3:22 PM [facility] MCH 32.3 26.0 - 34.0 pg 08/26/2023 3:22 PM [facility] MCHC 36.2(H) 32.0 - 36.0 g/dL 08/26/2023 3:22 PM [facility] RDW 12.9 11.5 - 15.5 % 08/26/2023 3:22 PM [facility] PLATELET COUNT 326 140 - 440 thou/cu mm 08/26/2023 3:22 PM [facility] MPV 9.0 6.5 - 11.0 fL 08/26/2023 3:22 PM [facility] % NEUT 71.6 % 08/26/2023 3:22 PM [facility] % LYMPH 23.7 % 08/26/2023 3:22 PM [facility] % MONO 3.9 % 08/26/2023 3:22 PM [facility] % EOS 0.2 % 08/26/2023 3:22 PM [facility] % BASO 0.6 % 08/26/2023 3:22 PM [facility] ABSOLUTE NEUTROPHILS 8.7(H) 1.7 - 7.0 thou/cu mm 08/26/2023 3:22 PM [facility] ABSOLUTE LYMPHOCYTES 2.9 0.9 - 2.9 thou/cu mm 08/26/2023 3:22 PM PAPER PATTERN INSPECTOR [facility] ABSOLUTE MONOCYTES 0.5 <0.9 thou/cu mm 08/26/2023 3:22 PM PAPER PATTERN INSPECTOR [facility] ABSOLUTE EOSINOPHILS 0.0 <0.5 thou/cu mm 08/26/2023 3:22 PM PAPER PATTERN INSPECTOR [facility] ABSOLUTE BASOPHILS 0.1 <0.3 thou/cu mm 08/26/2023 3:22 PM PAPER PATTERN INSPECTOR [facility] Blood BLOOD SPECIMEN / Unknown Venipuncture / Unknown 08/26/2023 3:15 PM PAPER PATTERN INSPECTOR 08/26/2023 3:16 PM PAPER PATTERN INSPECTOR Lauryn MARTINEZ HEMATOLOGY Performing Organization Address [facility]/ZIP Co de Phone Number [facility] [address] [place] [address], * VITAMIN D 25 (DEFICIENCY) (08/26/2023 3:15 PM PAPER PATTERN INSPECTOR) Pathologist [facility] VITAMIN D TOTAL 29.3 20.0 - 80.0 ng/mL 08/26/2023 10:32 PM PAPER PATTERN INSPECTOR [facility] Blood BLOOD SPECIMEN / Unknown Venipuncture / Unknown 08/26/2023 3:15 PM PAPER PATTERN INSPECTOR 08/26/2023 3:16 PM PAPER PATTERN INSPECTOR Narrative [facility] - 08/26/2023 10:32 PM PAPER PATTERN INSPECTOR ? Vitamin D Status Deficiency: ? <20 ng/mL Insufficiency: ?20-29 ng/mL Sufficiency: ?30-80 ng/mL Possible Toxicity: ??>80 ng/mL Based on [place] of Medicine recommendations Biotin supplements may cause clinically significant interference for this test assay. ??If interference is suspected, it is strongly recommended that biotin is discontinued for at least one week prior to retesting. Lauryn MARTINEZ SEND [facility] [address] [place] [address], * TSH (08/26/2023 3:15 PM PAPER PATTERN INSPECTOR) TSH 2.19 0.27 - 4.20 uIU/mL 08/26/2023 10:32 PM PAPER PATTERN INSPECTOR [facility] Blood BLOOD SPECIMEN / Unknown Venipuncture / Unknown 08/26/2023 3:15 PM PAPER PATTERN INSPECTOR 08/26/2023 3:16 PM PAPER PATTERN INSPECTOR [facility] - 08/26/2023 10:32 PM PAPER PATTERN INSPECTOR In Adults, TSH values between 5.00 and 10.00 uIU/ml do not necessarily indicate the presence of Hypothyroidism. Correlation with clinical findings such as presence of goiter and/or Thyroperoxidase (TPO) Antibody may be helpful. For more information please refer to BRANDIN 2004; 291: 228-238. Lauryn MARTINEZ CHEMISTRY [facility] [address] [place] [address], * (ABNORMAL) COMP METABOLIC PANEL (08/26/2023 3:15 PM PAPER PATTERN INSPECTOR) SODIUM 136 136 - 145 mmol/L 08/26/2023 10:32 PM [facility] POTASSIUM 4.1 3.5 - 5.1 mmol/L 08/26/2023 10:32 PM [facility] CHLORIDE 103 98 - 107 mmol/L 08/26/2023 10:32 PM [facility] CO2,TOTAL 21(L) 22 - 29 mmol/L 08/26/2023 10:32 PM [facility] ANION GAP 12 5 - 18 08/26/2023 10:32 PM [facility] GLUCOSE 99 70 - 99 mg/dL 08/26/2023 10:32 PM [facility] CALCIUM 9.4 8.6 - 10.0 mg/dL 08/26/2023 10:32 PM [facility] BUN 9 6 - 20 mg/dL 08/26/2023 10:32 PM [facility] CREATININE 0.79 0.50 - 0.90 mg/dL 08/26/2023 10:32 PM [facility] BUN/CREAT RATIO 11 10 - 20 10:32 PM [facility] eGFR >90 >90 mL/min/1.7 3m2 08/26/2023 10:32 PM [facility] Comment:As of 2021, eG FR is calculated by the CKD-EPI creatinine equation without race adjustment. ??eGFR can be influenced by muscle mass, exercise, and diet. ??The reported eGFR is an estimation only and is only applicable if the renal function is stable. ALBUMIN 4.5 4.0 - 4.9 g/dL 08/26/2023 10:32 PM [facility] PROTEIN,TOTAL 7.2 6.0 - 8.0 g/dL 08/26/2023 10:32 PM [facility] BILIRUBIN,TOTAL 0.7 0.0 - 1.2 mg/dL 08/26/2023 10:32 PM PAPER PATTERN INSPECTOR [facility] ALK PHOSPHATASE 70 35 - 104 IU/L 08/26/2023 10:32 PM [facility] ALT (SGPT) 11 10 - 35 IU/L 08/26/2023 10:32 PM [facility] AST (SGOT) 25 10 - 35 IU/L 08/26/2023 10:32 PM [facility] Blood BLOOD SPECIMEN / Unknown Venipuncture / Unknown 08/26/2023 3:15 PM PAPER PATTERN INSPECTOR 08/26/2023 3:16 PM PAPER PATTERN INSPECTOR Lauryn MARTINEZ CHEMISTRY [facility] [address] [place] [address], from Last 3 Months Care Teams Per Diem Physical Therapist Assistant Relationship Specialty Start Date End Date Ping George MD [address] [place] [address] PCP - General Family Practice 08/18/20
--- OUTSIDE RECORDS SUMMARY | 2023-11-21 21:57 | XMS_ITS | Clinical Summary ---
Author Name Unknown Organization [facility] Address [address] [place] [address] Care Team Providers Care [employer] Teacher Name Role Phone Elsewhere, Pcp Primary Care Provider Unavailabl e Source Comments Patient records contain information from all sites at [facility]. For routine questions regarding patient records, call [phone] during business hours, M-F 8:00 AM - 5:00 PM Central Time. Record requests for emergency care only can be directed to [phone] at any time.[facility] Allergies Active Allergy Reactions Criticality Noted Date [...] Comments Blood Pressure 119/61 07/09/2023 9:00 PM SAND BLASTER Pulse 76 07/09/2023 9:00 PM SAND BLASTER Temperature 36.3 ??C (97.3 ??F) 07/09/2023 6:18 PM CS T Respiratory Rate 18 07/09/2023 9:00 PM SAND BLASTER Oxygen Saturation 99% 07/09/2023 9:00 PM SAND BLASTER Inhaled Oxygen Concentration - - Weight 93.6 kg (206 lb 5.6 oz) 07/09/2023 6:15 P M SAND BLASTER Height 160.5 cm (5' 3.19) 07/29/2019 7:53 [...] - Td or Tdap) 10/18/2024 10/18/2014, 04/12/2008, 04/06/2007, Additional history exists Pneumococcal vaccine (0-64 years) Aged Out 08/05/2003, 01/18/2003, 2002, Additional history exists No longer eligible based on patient's age to complete this topic Hepatitis B Vaccines Completed 04/06/2007, 04/06/2007, 2002, Additional history exists HPV Vaccines Completed 09/19/2017, 08/2014, 04/21/2015 Meningococcal Vaccine Completed 04/03/2020 , 04/03/2020, 10/18/2014, Additional history exists Care Teams [employer] Relationship Specialty Start Date End Date Elsewhere, Pcp PCP - General Dumpcart Driver 07/29/19
--- OUTSIDE RECORDS SUMMARY | 2023-11-21 21:57 | XMS_ITS | Referral Summary ---
Author Name Unknown Organization [facility] Address [address] [place] [address] Care Team Providers Care Linker Up Name Role Phone Elsewhere, Pcp Primary Care Provider Unavailabl e Source Comments Patient records contain information from all sites at [facility]. For routine questions regarding patient records, call [phone] during business hours, M-F 8:00 AM - 5:00 PM Central Time. Record requests for emergency care only can be directed to [phone] at any time.[facility] Allergies Active Allergy Reactions Criticality Noted Date [...] Comments Blood Pressure 119/61 07/09/2023 9:00 PM ACCOUNTANT CLERK Pulse 76 07/09/2023 9:00 PM ACCOUNTANT CLERK Temperature 36.3 ??C (97.3 ??F) 07/09/2023 6:18 PM CS T Respiratory Rate 18 07/09/2023 9:00 PM ACCOUNTANT CLERK Oxygen Saturation 99% 07/09/2023 9:00 PM ACCOUNTANT CLERK Inhaled Oxygen Concentration - - Weight 93.6 kg (206 lb 5.6 oz) 07/09/2023 6:15 P M ACCOUNTANT CLERK Height 160.5 cm (5' 3.19) 07/29/2019 7:53 AM CS T Body Mass Index - - Plan of Treatment Not on file Care Teams Linker Up Relationship Specialty Start Date End Date Elsewhere, Pcp PCP - General Set Staff Fitter 07/29/19
--- OUTSIDE RECORDS SUMMARY | 2023-11-21 21:57 | XMS_ITS ---
Author Name Unknown Organization [facility] Address [address] [place] [address] Care Team Providers Care Carbon Brusher Assembler Name Role Phone Unavailable Unavailable Unavailable Surgery Details Not on file Complications Check Surgery Details section. Procedure Estimated Blood Loss Check Surgery Details section. Procedure Findings Check Surgery Details section. Procedure Specimens Taken Check Surgery Details section.
[2023-11-21 22:01] VITALS: BP 128/87
[2023-11-21 22:09] LABS: Basophils Percent Auto 0.6 % (0.0-3.0); Hematocrit 45.2 % (33.0-51.0); Hemoglobin* 15.7 gm/dL (12.0-16.0); Immature Granulocytes Pct Auto 0.1 %; Lymphocytes Percent Auto 35.8 % (20-44); Mean Corpuscular HGB Conc 35 gm/dL (32-36); Mean Corpuscular Hemoglobin 31 pg (26-34); Mean Corpuscular Volume 90 fL (80-100); Monocytes Percent Auto 7.3 % (0.0-11.0); Neutrophils Percent Auto 55.2 % (42.0-72.0); Platelet Count* 394 K/uL (140-440); RDW Coefficient of Variation % 12.3 % (11.5-15.5); White Blood Count* 13.49 K/uL (4.50-11.00)
[2023-11-21 22:12] LABS: Slide Review Reflex No
[2023-11-21 22:19] LABS: Albumin* 4.3 g/dL (3.3-5.0); Chloride* 108 mmol/L (96-114); Sodium* 142 mmol/L (135-149)
[2023-11-21 22:20] LABS: Potassium* 4.5 mmol/L (3.6-5.1)
[2023-11-21 22:22] LABS: Anion Gap 6 mEq/L (7-15); Aspartate Amino Transferase* 27 U/L (12-35); Bilirubin Total* 0.5 mg/dL (0.1-1.5); Carbon Dioxide* 28 mmol/L (20-32); Creatinine* 0.7 mg/dL (0.5-1.5); Est. Creatinine Clearance* 109.78; Estimated Glomerular Filt Rate 126 ml/min; Total Protein* 7.3 g/dL (6.0-8.3)
[2023-11-21 22:23] LABS: Alanine Aminotransferase* 18 U/L (4-35); Alkaline Phosphatase* 104 U/L (40-150); Blood Urea Nitrogen* 12 mg/dL (5-24); Calcium* 9.3 mg/dL (8.4-10.6); Glucose* 89 mg/dL (60-115)
[2023-11-21 22:24] LABS: D Dimer Quantitative* 0.31 ug/ml (0.00-0.50)
[2023-11-21 22:26] LABS: C Reactive Protein* < 0.5 mg/dL (0.5-1.0)
[2023-11-21 22:31] VITALS: BP 128/79
[2023-11-21 22:39] LABS: NT Pro B Type NatriureticPept* < 20 pg/mL; Troponin I* < 0.01 ng/mL (0.01-0.04)
[2023-11-21 22:56] LABS: Erythrocyte SedimentationRate* 2 mm/hr (2-20)
[2023-11-21 23:01] VITALS: BP 124/74
[2023-11-21 23:31] VITALS: BP 121/80
[2023-11-22 00:01] VITALS: BP 130/80
[2023-11-22 00:31] VITALS: BP 129/77
== END 2023-11-22 00:52 | disposition home or self-care (01) ==
PROVIDERS: Emergency Provider Family Medicine; PCP Physician Assistant
DX: I47.19 Other supraventricular tachycardia (principal); R07.9 Chest pain, unspecified
CPT/HCPCS: 36415; 80053; 83880; 84484; 85025; 85379; 85651; 86140; 93005; 94761; 99284

== ENCOUNTER 2024-04-19 14:41 | Outpatient (CLI) | payer OTHER, SELFPAY ==
--- OUTSIDE RECORDS SUMMARY | 2024-04-19 14:43 | XMS_ITS | Clinical Summary ---
Author Organization [facility] Address [address] [place] [address] Care Team Providers Care Finance Teacher Name Role Phone Elsewhere, Pcp Primary Care Provider Unavailabl e Source Comments Patient records contain information from all sites at [facility]. For routine questions regarding patient records, call [phone] during business hours, M-F 8:00 AM - 5:00 PM Central Time. Record requests for emergency care only can be directed to [phone] at any time.[facility] Allergies Active Allergy Reactions Criticality Noted Date [...] Administration Dates Next Due DTaP (Infanrix, [employer]) 04/12/2008,,01/18/2003,2002,2002 HepB, Unspecified 04/06/2007 Hib-HepB 2002,2002 IPV 04/12/2008, 7,01/18/2003,2002,2002 MMR 04/12/2008,08/05/2003 PCV7 (discontinued) 08/05/2003, 3,2002,2002 DANILO 04/12/2008,08/05/2003 influenza trivalent vaccine (6 months and older)(PF) 04/23/2011 Social History Tobacco Use Types Packs/Day Years [...] Comments Blood Pressure 119/61 07/09/2023 9:00 PM KILN STOKER Pulse 76 07/09/2023 9:00 PM KILN STOKER Temperature 36.3 ??C (97.3 ??F) 07/09/2023 6:18 PM CS T Respiratory Rate 18 07/09/2023 9:00 PM KILN STOKER Oxygen Saturation 99% 07/09/2023 9:00 PM KILN STOKER Inhaled Oxygen Concentration - - Weight 93.6 kg (206 lb 5.6 oz) 07/09/2023 6:15 P M KILN STOKER Height 160.5 cm (5' 3.19) 07/29/2019 7:53 AM CS T Body Mass Index - - Plan of Treatment Health Maintenance Due Date Last Done Comments Cervical Cancer Screening 2002 Chlamydia and Gonorrhea Screening 2002 HIV Screening 2002 Hearing Screening during Well Child Visit 2002 Hepatitis C Screening 2002 TB Screening during Well Child Visit 2002 1 week Well Child Check-Up 2002 [...] 06/16/2021 22 year Well Child Check-Up 06/16/2022 23 year Well Child Check-Up 06/16/2023 Well Child Check-Up (WCC) 06/16/2023 Depression Screening (Annual PHQ-2) 07/21/2023 COVID-19 Vaccine ( season) 2024 08/07/2022 Influenza Vaccine (#1) 2024 04/30/2013, 2010 DTaP,Tdap,and Td Vaccines (6 - Td or Tdap) 10/18/2024 10/18/2014, 04/12/2008, 04/06/2007, Additional history exists Pneumococcal vaccine (0-64 years) Aged Out 08/05/2003, 01/18/2003, 2002, Additional history exists No longer eligible based on patient's age to complete this topic Hepatitis B Vaccines Completed 04/06/2007, 2002, 2002 HPV Vaccines Completed 09/19/2017, 08/2014, 04/21/2015 Meningococcal Vaccine Completed 04/03/2020, 015 Care Teams Finance Teacher Relationship Specialty Start Date End Date Elsewhere, Pcp PCP - General Amortization Clerk 07/29/19
--- OUTSIDE RECORDS SUMMARY | 2024-04-19 14:43 | XMS_ITS ---
Author Organization [facility] Address [address] [place] [address] Care Team Providers Care Metal Sprayer Production Name Role Phone Unavailable Unavailable Unavailable Surgery Details Not on file Complications Check Surgery Details section. Procedure Estimated Blood Loss Check Surgery Details section. Procedure Findings Check Surgery Details section. Procedure Specimens Taken Check Surgery Details section.
--- OUTSIDE RECORDS SUMMARY | 2024-04-19 14:43 | XMS_ITS | Clinical Summary ---
Author Organization [employer] [facility] Address [place], [place] [address] Care Team Providers Care Trimming Cutter Name Role Phone Lauryn Tate Primary Care Provider [phone] Allergies Active Allergy Reactions Criticality Noted Date Comments Estrogens Headache 10/17/2017 Got worse headache on oral contraceptives Prochlorperazine Tremors 06/14/2019 Possible seizure lasted 30-60 seconds. She recalls the episode. Topiramate Syncope 11/25/2023 Medications Medication Sig Dispensed Refills Start Date End Date Status escitalopram oxalate (LEXAPRO) 10 mg tabletIndications: MDD (major depressive disorder), recurrent episode, moderate (HC) Take 1/2 tablet once daily for 1 week, then increase to 1 tablet once daily. 90 Tablet 1 10/02/2023 Active albuterol HFA (PRO-AIR; VENTOLIN; PROVENTIL) 90 mcg/actuation inhalerIndications :Mild intermittent asthma without complication Inhale 1-2 Puffs by mouth every 4 hours if needed for Shortness Of Breath or Wheezing. 18 g 11 11/11/2023 Active SUMAtriptan (IMITREX) 100 mg tabletIndications: Migraine without aura and without status migrainosus, not intractable Take 1 Tablet (100 mg) by mouth every 2 hours if needed for Migraine. Give at minimum 2hrs apart. Max Dose: 200mg per 24hrs. 10 Tablet 11 01/02/2024 Active gabapentin (NEURONTIN) 600 mg tabletIndications: Migraine without aura and without status migrainosus, not intractable Take 1 Tablet (600 mg) by mouth three times daily. 270 Tablet 1 01/02/2024 Active norethindrone, Contraceptive, (MICRONOR, 28,) 0.35 mg tabletIndications: Oral contraceptive use Take 1 Tablet (0.35 mg) by mouth once daily. 90 Tablet 3 01/15/2024 Active tiZANidine (ZANAFLEX) 2 mg tabletIndications: TMJ tenderness, bilateral TAKE 1 TABLET(2 MG) BY MOUTH EVERY 6 HOURS NEEDED FOR MUSCLE SPASM 30 Tablet 04/12/2024 Active tiZANidine (ZANAFLEX) 2 mg tabletIndications: TMJ tenderness, bilateral Take 1 Tablet (2 mg) by mouth every 6 hours if needed for Muscle Spasm. 30 Tablet 11/25/2023 4 Discontinued Active Problems Problem Noted Date Diagnosed Date Oral contraceptive use 01/17/2024 Syncope 11/25/2023 Migraine without aura and wi thout status migrainosus, not intractable 11/11/2023 Irritable bowel syndrome wit h both constipation and diarrhea 06/03/2018 Anxiety 04/10/2018 Headache syndrome 10/17/2017 Overview (10/17/2017): Had dizziness and headache yesterday but was doing overall better Neurology mri normal - thinking dizziness connected to headache considering stress playing a role. Exercise-induced asthma 09/19/2017 Resolved Problems Problem Noted Date Diagnosed Date Resolved Date Nexplanon in place 11/28/2023 4 Overview (11/28/2023): Placed 04/07/23 Need for prophylactic vaccin ation and inoculation against other combinations of diseases 04/06/2007 01/17/2024 Encounters Date Type Department Care Team Description 04/12/2024 Refill [facility] [address] [place] [address] Lauryn Tate PA Refill Request (Tizanidine) from Last 3 Months Immunizations Name Administration Dates Next Due DTaP 04/12/2008, 7,01/18/2003,11/17,2002 HIB-HepB (Comvax) 2002,2002 HPV 9 (Gardasil 9) 09/19/2017 Hepatitis A (Peds) 04/03/2020,09/19/2017 Hepatitis B (Peds) 04/06/2007 Hepatitis B, Unspecified 04/06/2007 Human Papilloma Virus Vaccine 04/21/2015 Inactivated Polio Vaccine 04/12/2008,,01/18/2003,11/17,2002 Influenza, IIV3 (Age 6-35 mos) 04/23/2011 Influenza, IIV3 (Age >=3 years) 04/30/2013 MENINGOCOCCAL VACCINE 2 VIAL 2MO-55YO (MENVEO) 04/03/2020,10/18/2014 MMR 04/12/2008,08/05/2003 Pneumococcal conj 7-Valent (Prevnar 7) 0 08/05/2003,01/18/2003,2002,09/16 [...] of Communication with Friends and Fami ly Not on file 04/12/2024 Financial Resource Strain Answer Date R ecorded [...] Sign Reading Time Taken Comments Blood Pressure 114/76 01/15/2024 8:30 AM CDT Pulse 81 01/15/2024 8:30 AM CDT Temperature 36.8 ??C (98.3 ??F) 12/19/2022 1:16 AM CD T Respiratory Rate 20 12/19/2022 1:16 AM CDT Oxygen Saturation 97% 01/15/2024 8:30 AM CDT Inhaled Oxygen Concentration - - Weight 105.2 kg (232 lb) 01/02/2024 2:32 PM CDT Height 163.8 cm (5' 4.5) 05/14/2023 10:07 AM CD T Body Mass Index - - Plan of Treatment Health Maintenance Due Date Last Done Comments HIV for age 15-65 2017 Chlamydia for age 16-24 2018 Hepatitis C screening for age 18-79 2020 Pap test for age 21-65 2023 COVID-19 vaccine series ( season) 2024 08/07/2022 Influenza for age 9-49 03/21/2024 04/30/2013 BMI [...] series for age 11-21 Completed 04/03/2020, 10/18/2014 Care Teams Trimming Cutter Relationship Specialty Start Date End Date Lauryn Tate PA [address] [place] [address] PCP - General Physician Pattern Room Attendant 11/25/23
--- OUTSIDE RECORDS SUMMARY | 2024-04-19 14:43 | XMS_ITS | Referral Summary ---
Author Organization [facility] Address [address] [place] [address] Care Team Providers Care Travel Registered Nurse Nicu Name Role Phone Elsewhere, Pcp Primary Care Provider Unavailabl e Source Comments Patient records contain information from all sites at [facility]. For routine questions regarding patient records, call [phone] during business hours, M-F 8:00 AM - 5:00 PM Central Time. Record requests for emergency care only can be directed to [phone] at any time.[facility] Allergies Active Allergy Reactions Criticality Noted [...] Comments Blood Pressure 119/61 07/09/2023 9:00 PM BUFFER COPPER Pulse 76 07/09/2023 9:00 PM BUFFER COPPER Temperature 36.3 ??C (97.3 ??F) 07/09/2023 6:18 PM CS T Respiratory Rate 18 07/09/2023 9:00 PM BUFFER COPPER Oxygen Saturation 99% 07/09/2023 9:00 PM BUFFER COPPER Inhaled Oxygen Concentration - - Weight 93.6 kg (206 lb 5.6 oz) 07/09/2023 6:15 P M BUFFER COPPER Height 160.5 cm (5' 3.19) 07/29/2019 7:53 AM CS T Body Mass Index - - Plan of Treatment Not on file Care Teams Travel Registered Nurse Nicu Relationship Specialty Start Date End Date Elsewhere, Pcp PCP - General Health Promotion Coordinator 07/29/19
--- NOTE | 2024-04-19 15:30 | MR_ITS ---
[address] [address] Phone:?[phone] Fax:?[phone] Referring Physician Information: Reece Davis M.D. [address] [facility] [address] Phone:?[phone] Fax:?[phone] Patient:Roland Verde D.O.B:?2000 Sex:?Female Phone:?[phone] [facility] MRN:?[id number] Exam Date:?04/19/2024 EXAM: MRI of the RIGHT KNEE, without contrast CLINICAL HISTORY: Ongoing right knee pain. Evaluate for patellar instability and loose body. COMPARISONS: Plain radiographs 04/07/2024. TECHNICAL: MR sequences of the right knee: sagittals: PD, T2 FS coronals: PD, T2FS axials: PD, T2 FS CONTRAST: None SEDATION: None FINDINGS: Bones: No fracture, bone marrow contusion, or other suspicious bone marrow signal abnormality. Patellofemoral joint: Cartilage: 7 x 4 mm area of grade III chondromalacia over the midportion of the median patellar ridge. Retinacula: The medial and lateral retinacula are intact. Fat pads: Edema-like signal within the superolateral portion of the infrapatellar fat pad is associated with patellar tendon-lateral femoral condyle friction/patellar maltracking. The Insall Salvati index measures 1.20. The lateral trochlear inclination angle measures 11 degrees measured on axial series 3 image 13. The tibial tubercle to trochlear groove distance measures 1.8 cm. Knee joint: Effusion: Physiologic amount of joint fluid. Popliteal cyst: Tiny popliteal cyst. Intra-articular bodies: None. Posteromedial corner: The semimembranosus and pes anserine tendons are intact. Medial compartment: Medial meniscus: Intact. Cartilage: Intact. Lateral compartment: Lateral meniscus: Intact. Cartilage: Intact. Ligaments: Anterior cruciate ligament: Intact. Posterior cruciate ligament: Intact. Medial collateral ligament: Intact. Posterior oblique ligament: Intact. Fibular collateral ligament: Intact. Posterolateral corner: The distal biceps femoris tendon, iliotibial band, popliteus tendon, popliteus muscle, popliteofibular ligament, and arcuate ligament are intact. Extensor mechanism: Patellar tendon: Intact. Quadriceps tendon: Intact. IMPRESSION: 1. 7 x 4 mm area of grade III chondromalacia over the midportion of the median patellar ridge. 2. Edema-like signal within the superolateral portion of the infrapatellar fat pad is associated with patellar tendon-lateral femoral condyle friction/patellar maltracking. Lower limits of normal lateral trochlear inclination angle of 11 degrees. The tibial tubercle to trochlear groove distance measures 1.8 cm. An Insall Salvati index of 1.20 is within normal limits. 3. Tiny popliteal cyst. 4. Otherwise, unremarkable MRI of the right knee without osseous, ligamentous, tendinous, or meniscal pathology. No intra-articular body. Intact medial and lateral compartment cartilage. RCB Electronically signed on 04/20/2024 8:58:00 AM by Wayne Mock M.D.
== END 2024-04-19 14:42 | disposition home or self-care (01) ==
PROVIDERS: PCP Physician Assistant; Visit Provider Orthopaedic Surgery
DX: M25.561 Pain in right knee (principal); M22.41 Chondromalacia patellae, right knee; M23.41 Loose body in knee, right knee; M25.361 Other instability, right knee
CPT/HCPCS: 73721

== ENCOUNTER 2024-07-29 23:03 | Inpatient (IN) | payer OTHER, SELFPAY ==
--- OUTSIDE RECORDS SUMMARY | 2024-07-29 23:06 | XMS_ITS | Referral Summary ---
Author Organization [facility] Address [address] [place] [address] Care Team Providers Care Knitted Cloth Examiner Name Role Phone Elsewhere, Pcp Primary Care Provider Unavailabl e Source Comments Patient records contain information from all sites at [facility]. For routine questions regarding patient records, call [phone] during business hours, M-F 8:00 AM - 5:00 PM Central Time. Record requests for emergency care only can be directed to [phone] at any time.[facility] Allergies Active Allergy Reactions Criticality Noted Date Comments Estrogens Other (see comments) 07/29/2019 Prochlorperazine Anxiety 06/14/2019 Possible seizure lasted 30-60 seconds. She recalls the episode. Medications * This document contains information received from the source organization and may not represent a complete record from that organization. sertraline (ZOLOFT) 100 mg tablet Take 200 [...] Recorded Dental: Regular Dentist Unknown 09/23/19 21 Comments Unknown Sex and Gender Information Value Date Recorded Sex Assigned at Not on file Legal Sex Female 2:10 PM SUPERINTENDENT QUARRY Gender Identity Not on file Sexual Orientation Not on file Last Filed Vital Signs Vital Sign Reading Time Taken Comments Blood Pressure 119/61 07/09/2023 9:00 PM SUPERINTENDENT QUARRY Pulse 76 07/09/2023 9:00 PM SUPERINTENDENT QUARRY Temperature 36.3 C (97.3 F) 07/09/2023 6:18 PM SUPERINTENDENT QUARRY Respiratory Rate 18 07/09/2023 9:00 PM SUPERINTENDENT QUARRY Oxygen Saturation 99% 07/09/2023 9:00 PM SUPERINTENDENT QUARRY Inhaled Oxygen Concentration - - Weight 93.6 kg (206 lb 5.6 oz) 07/09/2023 6:15 P M SUPERINTENDENT QUARRY Height 160.5 cm (5' 3.19) 07/29/2019 7:53 AM CS T Body Mass Index - - Plan of Treatment Not on file Insurance [facility] Care Teams Knitted Cloth Examiner Relationship Specialty Start Date End Date Elsewhere, Pcp PCP - General Road Machine Operator 07/29/19
--- OUTSIDE RECORDS SUMMARY | 2024-07-29 23:06 | XMS_ITS ---
Author Organization [facility] Address [address] [place] [address] Care Team Providers Care School Business Administrator Name Role Phone Unavailable Unavailable Unavailable Surgery Details Not on file Complications Check Surgery Details section. Procedure Estimated Blood Loss Check Surgery Details section. Procedure Findings Check Surgery Details section. Procedure Specimens Taken Check Surgery Details section.
--- OUTSIDE RECORDS SUMMARY | 2024-07-29 23:06 | XMS_ITS | Data Portability ---
Author Organization [place] [facility] Address [address] [facility] [address] [place] [address] Care Team Providers Care Acquisition Manager Name Role Phone O NISREEN RODRIGUEZ Referring Provider MACHO SALES Primary Care Provider [phone] JEVON DENTAL Dentist [facility] Physical Therapis t Assessment Encounter Date Assessment Date Assessment LastModified by Organization Details LastModified Time 05/13/2023 05/13/2023 Today I spent a considerable amount of time discussing the patients past medical and personal history, as well as performing a physical examination all of which is documented in it's entirety in the electronic health record. I reviewed the pathophysiology of the disorder, potential contributing and risk factors as well as treatment options to address their complaints. I discussed the pros and cons of advanced imaging. I did not recommend advanced imaging with CT. Today panoramic imaging was obtained. In this radiograph the mandibular condyles were partially visualized and appear mildly flattened and irregular suggestive of DJD. There was no other suggestion of osseous or odontogenic abnormalities. I also reviewed a rendered panoramic imaging from 02/2022, which is not of diagnostic quality. In this radiograph the mandibular condyles were not visualized. Today we had a long discussion regarding the relationship between their chronic pain disorder and muscle tension. I explained to the patient how the contribution of their masticatory and cervical muscles, and increased autonomic nervous system activity together can contribute to their pain disorder. We discussed the different contributing factors to these symptoms. We also discussed oral habits which affect the jaw muscles, postural issues for the neck muscles and the role stress, tension, anxiety and emotions factors which play into autonomic nervous system arousal. We discussed how these issues may need to be addressed concurrently in order to effectively address their complaints. It was explained how the autonomic response can increase muscle tension in both the masticatory and cervical muscle groups. A multidisciplinary treatment plan to address all these factors was outlined with the patient. From a treatment perspective, I have recommended beginning a home self-management program designed to rest the muscles of mastication and reduce inflammation in the temporomandibular joints. This includes utilizing moist heat and ice compresses, eating a soft food or pain-free diet, bilateral chewing, identifying and decreasing daytime oral habits, as well as sleep position modification. Today I taught simple jaw exercises designed to improve the jaw mechanics and movement, improve range of mouth opening and improve TM joint fluid circulation to facilitate healing. This includes jaw stretch with relaxed breathing. This was both demonstrated and given in written format. Concurrently I taught proper posture. Beyond self-management, I believe there would be benefit from the use of a mandibular intraoral splint to help stabilize the musculoskeletal structures of the jaw, as well as to protect these structures from the ill effects of sleep bruxism. Екатерина would like to consider cost and coverage before proceeding. In addition I've recommended rehabilitation with physical therapy on home stretching exercise, as well as posture correction. A referral was sent to [place]. I recommended that Екатерина discuss with her PCP management options for her anxiety and depression. Екатерина could also work with our health psychologist on relaxation, stress management techniques, and ways to reduce muscle tension. Medication options were discussed and deferred for the time being. In addition I've suggested that they have evaluation with one of our medical providers for further medical evaluation of their chronic pain disorder. She will consider this at her next follow-up. History was obtained from the patient. The patient has 5+ diagnoses they would like to address. This case is moderate complexity because of multiple diagnoses with chronic symptoms. Data reviewed included: previous imaging. Risk of complications include progressive disease/symptoms. Today time spent may have included a review of past records, history taking, review of diagnoses, contributing factors, treatment plan, diagnostic testing, prognosis, expectations, risks and complications of treatment/no treatment, discussions with other providers and completing documentation was 60 minutes. Cost of care and insurance coverage was reviewed and discussed with the patient. Not available 05/14/2023 21:12:42 Plan of Treatment Reminders Order Date Submit Date Provider Last Modified By Organization Details Last Modified Time Details Appointments None recorded. Lab None recorded. Referral physical therapist [facility] [address], [place], [address], 21:16:34 Procedures None recorded. Surgeries None recorded. Imaging XR, orthopanto gram 2022 023 tnasciment o1 [place], [facility] [address], [place], [address], 21:14:24 Medication Orders None recorded. Patient TargetsNo targets recorded. Patient Instructions Encounter Date Encounter Id Patient Instructions Last Modified By Organization Details Last Modified Time 05/13/2023 [id number] Self Care for TMD Not avai lable 05/14/2023 21:14:25 Three Jaw Exercises Not available 05/14/2023 21:14:25 oral appliance preparation* Not available 05/14/2023 21:14:25 Reason for Referral Physical Therapist Referral for Myofascial pain Chronic myofascial pain (TMD/Headaches) Referring Physician: Jenny Mccracken, Pain Management, Encounter Date: 05/13/2023 Results Created Date Observation Date Name Description Value Unit Range Abnormal Flag Note LastModifiedBy Organization Detail LastModifiedTime 05/13/2005/13/2023 oral appli ance prepa ratio n* Type of appliance mandib ular stabil izatio n applia nce Not Available [place] [address], [place], [address], 05/06/2023 14:29:39 05/13/20 XR, ortho panto gram No observ ation record ed. Not Available 05/13 11:57:13 05/13/20 XR, ortho panto gram No observ ation record ed. Not Available 05/13 12:52:30 05/13/20 23 XR, ortho panto gram No observ ation record ed. [place] [address], [place], [address], 05/13/2023 14:51:49 Result Notes None recorded. 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 427722932320 Active 2022 Bilateral TMJ disc displacem ent with reduction (left greater than right) JENNY NASCJOSE Valero DDS,MS [address] [facility] [address], [place], [address], [facility] 3 14:37:29 Myofascia l pain 157056032 Active 2022 masticato ry and cervical JENNY NASCJOSE Valero DDS,MS [address], [place], [address], [facility] 3 14:37:41 Periodont al ligament strain 920512406 Active 2022 JENNY NASCIMENT Marylu DDS,MS [address] [facility] [address], [place], [address], [facility] 3 14:19:48 Sleep related bruxism 220013173 Active 2022 JENNY NASCIMENT Marylu DDS,MS [address], [place], [address], [facility] 3 14:19:57 Obstructi ve sleep apnea of adult 957256353561 3 Active 2022 previous diagnosis JENNY NASCIMENT O, DDS,MS [address], [place], [address], [facility] 14:38:26 Chronic tension-t ype headache 882080450 Active 2022 JENNY NASCIMENT O, DDS,MS [address], [place], [address], [facility] 14:20:31 Episodic migraine 306902756996 106 Active 2022 JENNY NASCIMENT O, DDS,MS [address], [place], [address], [facility] 14:20:40 Migraine without aura 49767951 Active 2022 JENNY NASCIMENT O, DDS,MS [address], [place], [address], [facility] 14:20:54 Referred otalgia 91354239 Active 2022 JENNY NASCIMENT O, DDS,MS [address] [facility] [address], [place], [address], [facility] 14:25:29 Problem Notes None recorded. Procedures Surgical History Date Name Laterality Status Provider Name and Address Organization Details Recorded Time Orthopantogram completed Bridger Matthews [facility] 05/13/2023 12:59:56 Imaging Results Imaging Date Name Status LastModified by Organization Details LastModified Time 05/13/2023 XR, orthopantogram completed Inform ation not available 05/13/2023 11:57:13 05/13/2023 XR, orthopantogram completed Inform ation not available 05/13/2023 12:52:30 05/13/2023 XR, orthopantogram completed [email or web address] [place] [address], [place], [address], 05/13/2023 14:51:49 Procedure Notes None recorded. Medical Equipment None Reported. Allergies No known drug allergies Medications Name Sig Start Date Stop Date Status Note LastModified by Organization Details LastModified Time neomycin-po lymyxin-hyd rocort 3.5 mg/mL-10,00 0 unit/mL-1 % ear solution INSTILL 4 DROPPERFU L TO AFFECTED EAR THREE TIMES DAILY FOR 10 DAYS 05/13 completed Not Available Not Available Not Available triamcinolo ne acetonide 0.1 % lotion 1-2 DROPS TO EAR CANAL TWICE A DAY X 7 DAYS 05/13 completed Not Available Not Available Not Available neomycin-po lymyxin-hyd rocort 3.5 mg-10,000 unit/mL-1 % ear drops,susp SHAKE LIQUID AND INSTILL 4 DROPPERFU L TO AFFECTED EAR FOUR TIMES DAILY FOR 5 DAYS 05/13 completed Not Available Not Available Not Available Vitals Date Recorded Body height Body mass index (BMI) Percentile per age and sex Body mass index (BMI) Body weight Heart rate Systolic blood pressure Diastolic blood pressure Provider Name and Address Organization Details Last Updated DateTime 3 160.02 cm 97 % 35.4 kg/m2 62466.4 7 g 84 /min 121 mm[Hg] 88 mm[Hg] Bridger Matthews [facility] 11:21:55 Social History Question Answer Notes LastModified by Organizat ion Details LastModified Time Tobacco Smoking Status Never Smoker Bridger Matthews [facility] 05/13/2023 11:21:03 What Is Your Level Of Alcohol Consumption? None Information not available 05/13/2023 What Is Your Level Of Caffeine Consumption? Occasional Information not available 05/13/2023 Are You Currently Employed? No Information not available 05/13/2023 What Type Of Diet Are You Following? REGULAR Information not available 05/13/2023 Do You Reside In Or Have You Traveled To An Area Where Ebola Virus Transmission Is Active? No Information not available 05/13/2023 What Is The Highest Grade Or Level Of School You Have Completed Or The Highest Degree You Have Received? 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 (0=no Pain, 10=pain As Bad As You Can Imagine) 8 Information not available 05/13/2023 What Number Best Describes How, During The Past Week, Pain Has Interfered With Your Enjoyment Of Life? (0=does Not Interfere, 10= Completely Interferes) 6 Information not available 05/13/2023 What Number Best Describes How, During The Past Week, Pain Has Interfered With Your General Activity? (0=does Not Interfere, 10=completely Interferes) 5 Information not available 05/13/2023 How Many Children Do You Have? 0 Information not available 05/13/2023 What Is Your Relationship Status? Single Information not available 05/13/2023 Do You Feel Stressed (tense, Restless, Nervous, Or Anxious, Or Unable To Sleep At Night)? [id number] Information not available 05/13/2023 Do You Use Any Illicit Or Recreational Drugs? No Information not available 05/13/2023 How Many Years Have You Smoked Tobacco? 0 Information not available 05/13/2023 Sex: Unknown Functional Status Question Answer Note LastModified by Organizat ion Details LastModified Time What is your exercise level? Occasional Information not available 05/13/2023 Mental Status None recorded. Family History Relationship Description Onset Age of this Age Resolved Age Notes LastModified by Organization Details LastModified Time Mother Headache Not availab le 05/13/2023 11:20:50 Mother Migraine Not availab le 05/13/2023 11:20:50 Maternal Aunt Diabetes mellitus Not available 05/13 11:20:50 Maternal Grandmother Headache Not available 11:20:50 Maternal Grandmother Migraine Not available 11:20:50 Maternal Grandmother Heart disease Not available 05/13 11:20:50 Maternal Grandmother Diabetes mellitus Not available 05/13 11:20:50 Brother Depressive disorder Not available 05/13 11:20:50 Medical History Condition Response Anxiety Disorder Y Post traumatic stress disorder (PTSD) Y Head Trauma/Injury Y Headaches Y Migraines Y Obstructive Sleep Apnea Y Depression Y Asthma Y Gynecological HistoryNo gynecological history recorded. 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 Bilateral temporomandibular joint pain 8353681093 0371346 M26.623 Bilateral TMJ arthralgia Bilateral temporomandibular joint articular disc disorder 1548425869 6312790 M26.633 Bilateral TMJ disc displaceme nt with reduction (left greater than right) Periodonta l ligament strain 979202264 K05.5 Sleep related bruxism 27 6925753 G47.63 Obstructiv e sleep apnea of adult 7769920485 103 G47.33 previous diagnosis Chronic te nsion-type headache 245764607 G44.229 Migraine without aura 56 770194 G43.009 Referred otalgia 5637458 8 H92.03 Health Concerns Section Related Observation LastModified by Organization Detai ls LastModified Time None Recorded Concern Status LastModified by Organization Details LastModified Time None Recorded Advance Directives Directive None Recorded Payers Encounter Date Sequence Insurance Name Policy Number Policy Servin Covered Member ID Servin Member ID Guarantor Name 05/13/2023 1 [place] [id number] Chip [id number] Екатерина Verde Notes Date Note Type Note Provider Name and Address Organization Details Recorded Time 05/13/2023 text/html general HPI for jaw, face, TMD painReported bypatient.Onset:starte d 2 year(s) ago; gradual Location:bilateral; mandibular; preauricular; temporal; ear; L > R Quality:dull; aching; sore; sharp Severity:mild; pain level 5/10; radiating to the ear (head) Durationintermittent daily; worsening Symptom triggers:clenching; bruxism; stress; anxiety; chews hard/crunchy/chewy foods Aggravating Factors:stress; anxiety; grinding teeth; clenching the teeth Alleviating Factors:NSAIDs Associated Symptoms:jaw clicking bilateral;headaches Prior Treatment:NSAID trial Prior opinionENT Symptoms statusworse Patient presents today for evaluation of a possible temporomandibular disorder. These symptoms are {{acute chronic*}} and began with {{ no clear triggering events* significant stress and tension}}. Previous consultation include {{ none evaluation with his/her primary care provider evaluation with his/her dentist evaluation with both his/her dentist and primary care provider evaluation with his/her ENT#}}. Symptoms are {{right sided only left sided only bilateral*}} and aggravated by {{ no clear triggers jaw use and function* clenching and grinding of their teeth stress and tension}}. The patient is {{aware* not aware}} of teeth clenching and grinding.Екатерина presents for evaluation of bilateral jaw pain with referred left sided ear pain and tension-type headaches. Primary concern is the jaw pain. Gradual onset after getting COVID in 2019. Symptoms started with left ear pain. She saw ENT and was treated for ear infection. Pain is gone for the ear, but she does recognize referred pain from the jaw, when the jaw pain is severe. Jaw pain - L >R, dull but sharp with function, mild. It's getting worse over time (more intense). It's worse upon awakening and by the end of the day. 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 TMJ - B TMJ clicking and crepitus. She denies TMJ locking, occlusal changes, and dental pain. She does recognize dental sensitivity from clenching/grinding. She is aware of sleep bruxism. She does not think the noises are getting worse. She does not report limited TMJ ROM. She denies widespread join pain, but has occasional pain in the knees and shoulders. She is not hyper flexible. Maternal family has a history of arthritis (Knee issues).She had orthodontic completed, but currently does not wear retainers. The jaw pain is assocated with left-side headache - temporalis region, tension/pressure, mild. No autonomic/migraines features. Occurs 3x/week and increase with the jaw pain/function. She is managing with ibuprofen twice a week (400 to 600mg) or tylenol (1000mg). She also has a migraine without aura attack once every couple a months. It has not increased in frequency since the jaw pain started. Mother also has migraines. She was recently diagnosed with mild VINCE (HST on Apr 27). She is waiting to start a trial with CPAP. She is concerned about increased jaw pain with a mandibular advancement oral appliance. She has reports habitual snoring, witnessed apnea and several awakenings. She has anxiety, depression and a history of childhood trauma and PTSD. She currently not treating it, but would like to talk to her PCP about treatment options. She reports a history of concussion in 2018 while playing on snow with siblings. She reports having headache and tiredness for about a year. Symptoms were more severe in the first two months. She hasn't had any treatment for jaw pain. she is not taking any medications (with the exception of OTC PRN ibuprofen and Tylenol). JENNY MCCRACKEN DDS,MS [address] [facility] [address], [place], [address], [facility] 05/14/2023 21:14:29 OBGyn Episode No OBEpisode recorded.
--- OUTSIDE RECORDS SUMMARY | 2024-07-29 23:06 | XMS_ITS | Continuity of Care Document ---
Author Name NwHIN User [facility] Address Unknown Organization Unknown Address Unknown Procedures FILTER APPLIED:Only known Procedures with Onset Date within the last 5 years Procedure Date Procedure Provider Additiona l Information Status C-REACTIVE PROTEIN (00362) Completed RBC SED RATE NONAUTOMATED (93835) Completed FIBRIN DEGRADATION QUANT (32563) Completed COMPLETE CBC W/AUTO DIFF WBC (56009) Completed ASSAY OF TROPONIN QUANT (88514) Completed MEASURE BLOOD OXYGEN LEVEL (69237) Completed COMPREHEN METABOLIC PANEL (95324) Completed ROUTINE VENIPUNCTURE (87012) Completed EMERGENCY DEPT VISIT MOD MDM (90249) Completed ELECTROCARDIOGRAM TRACING (30815) Completed ASSAY OF NATRIURETIC PEPTIDE (72512) Completed ELECTROCARDIOGRAM TRACING (11631) Completed EMERGENCY DEPT VISIT MOD MDM (20415) Completed COMPLETE CBC W/AUTO DIFF WBC (26853) Completed CHORIONIC GONADOTROPIN ASSAY (94437) Completed ASSAY OF TROPONIN QUANT (99529) Completed ASSAY THYROID STIM HORMONE (41885) Completed METABOLIC PANEL TOTAL CA (77559) Completed EMERGENCY DEPT VISIT HI MDM (23322) Completed ROUTINE VENIPUNCTURE (91418) Completed CT HEAD/BRAIN W/O DYE (42037) Completed HYDRATE IV INFUSION ADD-ON (78167) Completed THER/PROPH/DIAG INJ IV PUSH (50588) Completed TX/PRO/DX INJ NEW DRUG ADDON (64922) Completed SLEEP STUDY UNATT RESP EFFT (81498) Completed Encounters FILTER APPLIED:Only known Encounters with Admission Date within the last 5 years Encounter Location Admission Discharge Billing Code [facility]ular [facility] abdir[facility] figueredo Emergency Yam[facility]x [facility]
--- OUTSIDE RECORDS SUMMARY | 2024-07-29 23:06 | XMS_ITS | Clinical Summary ---
Author Organization [facility] Address [place], [place] [address] Care Team Providers Care Senior Portfolio Manager Name Role Phone Lauryn Tate Primary Care Provider [phone] Allergies Active Allergy Reactions Criticality Noted Date Comments Estrogens Headache 10/17/2017 Got worse headache on oral contraceptives Prochlorperazine Tremors 06/14/2019 Possible seizure lasted 30-60 seconds. She recalls the episode. Topiramate Syncope 11/25/2023 Medications escitalopram oxalate (LEXAPRO) 10 mg tabletIndications: MDD (major depressive disorder), recurrent episode, moderate (HC) Take 1/2 tablet once daily for 1 week, then increase to 1 tablet once daily. 90 Tablet 1 4 Active albuterol HFA (PRO-AIR; VENTOLIN; PROVENTIL) 90 mcg/actuation inhalerIndications :Mild intermittent asthma without complication Inhale 1-2 Puffs by mouth every 4 hours if needed for Shortness Of Breath or Wheezing. 18 g 11 4 Active SUMAtriptan (IMITREX) 100 mg tabletIndications: Migraine without aura and without status migrainosus, not intractable Take 1 Tablet (100 mg) by mouth every 2 hours if needed for Migraine. Give at minimum 2hrs apart. Max Dose: 200mg per 24hrs. 10 Tablet 11 4 Active gabapentin (NEURONTIN) 600 mg tabletIndications: Migraine without aura and without status migrainosus, not intractable Take 1 Tablet (600 mg) by mouth three times daily. 270 Tablet 1 4 Active norethindrone, Contraceptive, (MICRONOR, 28,) 0.35 mg tabletIndications: Oral contraceptive use Take 1 Tablet (0.35 mg) by mouth once daily. 90 Tablet 3 4 Active tiZANidine (ZANAFLEX) 2 mg tabletIndications: TMJ tenderness, bilateral TAKE 1 TABLET(2 MG) BY MOUTH EVERY 6 HOURS NEEDED FOR MUSCLE SPASM 30 Tablet 4 Active Active Problems Problem Noted Date Diagnosed [...] Date Resolved Date Nexplanon in place 11/28/2023 Overview (11/28/2023): Placed 04/07/23 Need for prophylactic vaccin ation and inoculation against other combinations of diseases 04/06/2007 01/17/2024 Immunizations Name Administration Dates Next Due DTaP [...] Housing in the Last Year 1 04/07/2023 Comments No Sex and Gender Information Value Date Recorded Sex Assigned at Not on file Legal Sex 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 Gender Identity Not on file Sexual Orientation Not on file Obstetrics History Para Term AB IAB SAB Ectopic Multiple Livin g Live Births 0 0 0 0 0 0 0 0 0 0 0 Last Filed Vital Signs Vital Sign Reading Time Taken Comments Blood Pressure 114/76 01/15/2024 8:30 AM CDT Pulse 81 01/15/2024 8:30 AM CDT Temperature 36.8 C (98.3 F) 12/19/2022 1:16 AM CDT Respiratory Rate 20 12/19/2022 1:16 AM CDT [...] booster 10/18/2024 10/18/2014 Pneumococcal series for age 6-49 Aged Out 08/05/2003, 01/18/2003, 2002, Additional history exists No longer eligible based on patient's age to complete this topic Tdap Completed 10/18/2014 HPV series for age 9-26 Completed 09/19/2017, 04/21 Meningococcal series for age 11-21 Completed 04/03/2020, 10/18/2014 Care Teams Senior Portfolio Manager Relationship Specialty Start Date End Date Lauryn Tate PA [address] [place] [address] PCP - General Physician Tool Crib Supervisor 11/25/23
--- OUTSIDE RECORDS SUMMARY | 2024-07-29 23:06 | XMS_ITS | Clinical Summary ---
Author Organization [facility] Address [address] [place] [address] Care Team Providers Care Gift Packer Name Role Phone Elsewhere, Pcp Primary Care Provider Unavailabl e Source Comments Patient records contain information from all sites at [facility]. For routine questions regarding patient records, call [phone] during business hours, M-F 8:00 AM - 5:00 PM Central Time. 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 Gender Identity Not on file Sexual Orientation Not on file Last Filed Vital Signs Vital Sign Reading Time Taken Comments Blood Pressure 119/61 07/09/2023 9:00 PM TELEVISION PARTS TESTER Pulse 76 07/09/2023 9:00 PM TELEVISION PARTS TESTER Temperature 36.3 C (97.3 F) 07/09/2023 6:18 PM TELEVISION PARTS TESTER Respiratory Rate 18 07/09/2023 9:00 PM TELEVISION PARTS TESTER Oxygen Saturation 99% 07/09/2023 9:00 PM TELEVISION PARTS TESTER Inhaled Oxygen Concentration - - Weight 93.6 kg (206 lb 5.6 oz) 07/09/2023 6:15 P M TELEVISION PARTS TESTER Height 160.5 cm (5' 3.19) 07/29/2019 7:53 AM CS T Body Mass Index - - Plan of Treatment Health Maintenance Due Date Last Done Comments Cervical/Vaginal Cancer Screening 2002 Chlamydia and Gonorrhea Screening 2002 HIV Screening 2002 Hepatitis C Screening 2002 COVID-19 Vaccine ( season) 2024 08/07/2022 Influenza Vaccine (#1) 2024 04/30/2013, 2010 Depression Screening (Annual PHQ-2) 07/21/2024 DTaP,Tdap,and Td Vaccines (6 - Td or Tdap) 10/18/2024 10/18/2014, 04/12/2008, 04/06/2007, Additional history exists Pneumococcal vaccine (0-49 years) Aged Out 08/05/2003, 01/18/2003, 2002, Additional history exists No longer eligible based on patient's age to complete this topic Hepatitis B Vaccines Completed 04/06/2007, 2002, 2002 IPV Vaccines Completed 04/12/2008, 03/21, 01/18/2003, Additional history exists HPV Vaccines Completed 09/19/2017, 08/2014, 04/21/2015 Meningococcal Vaccine Completed 04/03/2020, 015 Insurance [facility] Care Teams Gift Packer Relationship Specialty Start Date End Date Elsewhere, Pcp PCP - General Hand Flatwork Finisher 07/29/19
[2024-07-29 23:22] VITALS: BP 140/70; PULSE 115; RESP 20; TEMP 36.8; O2SAT 99; BMI 38.6
[2024-07-29 23:38] LABS: Appearance Urine Clear (Clear); Bilirubin Urine Negative (Negative); Blood Urine Negative (Negative); Color Urine Yellow (Yellow); Glucose Urine Negative (Negative); Ketones Urine Negative (Negative); Leukocyte Esterase Urine Negative (Negative); Nitrite Urine Negative (Negative); Protein Urine Negative (Negative); Urobilinogen Urine 0.2 (0.2-1.0); pH Urine 6.5 (5.0-8.5)
[2024-07-29 23:43] LABS: Ur HCG Qualitative* Negative (Negative)
[2024-07-29 23:51] LABS: Amorphous Sediment Urine Few; Bacteria Urine Few; Mucus Urine Few; RBC Urine 0-2 (0-2); Squamous Epithelial Cell Urine Few (None-Few)
[2024-07-30] VITALS (87 sets, daily range): BP systolic 95–155; BP diastolic 42–98; PULSE 70–115; RESP 14–20; TEMP 36.2–38.1; O2SAT 90–99
[2024-07-30 00:02] LABS: PCR FLU A Negative PCR FLU A (Negative); PCR FLU B Negative PCR FLU B (Negative); PCR RSV Negative PCR RSV (Negative); SARS PCR* Negative SARS-CoV-2 (Negative)
--- NOTE | 2024-07-30 00:22 | ED_ITS ---
HPI - Abdominal Pain General Time Seen by Provider: 00:23 Date Seen: 07/30/24 Chief Complaint: Abdominal Pain Stated Complaint: abdominal pain Time Seen by Provider: 07/30/24 00:14 Source: patient Mode of arrival: ambulatory Limitations: no limitations History of Present Illness HPI narrative: 24-year-old female who presents today with low abdominal pain, nausea vomiting. Patient reports she had headache this morning, however notes that she had some low abdominal pain starting last night, pain is continued today. No pain with urination or blood in the urine. No diarrhea. Vomiting today as well. Headache is typical for patient, she also has a history of TMJ and took some tizanidine. Last period was 2 months ago, has not taken a test. Related Data Home Medications ?Medication ?Instructions ?Recorded ?Confirmed escitalopram oxalate 10 mg tablet 10 mg PO DAILY 11/18/23 07/29/24 Allergies Allergy/AdvReac Type Severity Reaction Status Date / Time topiramate Allergy Fainting Verified 07/30/24 01:42 Estrogens AdvReac Migraine Verified 07/30/24 01:42 [facility] Medical History Depression ?F32.A - Depression, unspecified (ICD-10) Asthma ?J45.909 - Unspecified asthma, uncomplicated (ICD-10) Surgical History (Updated 07/30/24 @ 00:36 by Rakesh Wolf RN) No significant past surgical history Social History (Updated 04/07/24 @ 14:42 by Josefa Davila [facility], [facility]) Narrative: fiance-Ricky Smoking Status: Never smoker Do you use any of these nicotine containing products: None Second hand tobacco smoke exposure: No How often do you have a drink containing alcohol: never AUDIT-C Alcohol total score: 0 Non-prescribed substance use: denies use service: No Exam Narrative: Exam Narrative: General: Well-developed and well-nourished, no acute distress Head: Atraumatic and normocephalic Eyes: Pupils are equal reactive, extraocular motions intact, conjunctiva clear ENT: External nose and ears are normal, posterior pharynx without erythema or exudate Neck: No midline cervical tenderness, full spontaneous range of motion the neck, trachea midline, no adenopathy Heart: Tachycardic rate and rhythm no murmurs or thrills Lungs: Clear to auscultation bilaterally without wheezes or crackles Abdomen: Soft, mild diffuse abdominal tenderness, nondistended with active bowel sounds Musculoskeletal: No tenderness, deformity, or edema Neurologic: Awake, alert, and oriented x3, no gross focal neurologic deficits, cranial nerves intact as tested Psych: Mood and affect are appropriate Skin: No rashes : With female parts and service manager, mild cervical motion tenderness, no vaginal discharge Const: Vital Signs, click to edit/add: Vital Signs - 24 hr 07/29/24 23:22 07/30/24 00:19 07/30/24 00:27 Temperature 98.2 F Pulse Rate 115 H 111 H Pulse Rate [Right Pulse Oximeter] 115 H Respiratory Rate 20 20 20 Blood Pressure 105/74 101/54 L Blood Pressure [Ri ght Upper Arm] 140/70 H Pulse Oximetry 99 98 99 Oxygen Delivery Me thod Room Air 07/30/24 00:43 07/30/24 01:44 07/30/24 02:00 Temperature 98.2 F 98.2 F 98.2 F Pulse Rate Pulse Rate [Right Pulse Oximeter] Respiratory Rate Blood Pressure Blood Pressure [Ri ght Upper Arm] Pulse Oximetry Oxygen Delivery Me thod 07/30/24 02:22 07/30/24 02:30 07/30/24 02:47 Temperature 100.5 F H 100.5 F H Pulse Rate Pulse Rate [Right Pulse Oximeter] 100 Respiratory Rate 20 Blood Pressure Blood Pressure [Ri ght Upper Arm] 108/63 Pulse Oximetry 99 99 Oxygen Delivery Me thod Room Air 07/30/24 03:52 Temperature 99.4 F Pulse Rate Pulse Rate [Right Pulse Oximeter] 97 Respiratory Rate 20 Blood Pressure Blood Pressure [Ri ght Upper Arm] 111/62 Pulse Oximetry 99 Oxygen Delivery Me thod Room Air Course Course ED Course: Patient seen examined, reviewed prior records, including clinic visit from December 2023 when she had her Nexplanon removed to concern for mood swings and anxiety which she felt correlated with placement the Nexplanon. Patient presents today primarily with low abdominal pain starting yesterday and continued today. Pain is across the entire low abdomen, crampy, accompanying with nausea vomiting. Patient also has a headache which is frontal, typical for her usual headaches. No urinary symptoms, some low back pain. Labs independently interpreted by me with urinalysis not consistent with infection, negative test, negative respiratory panel. Reevaluation(s) Time of Reevaluation #1: 01:44 Reevaluation #1: Labs ordered and independently interpreted by me with white blood cell count 11.9, normal basic panel other than slightly low sodium 134, potassium 3.5. CT scan of the abdomen pelvis independently interpreted by me with slight prominence of the appendix but minimal stranding, no other acute abnormality. Patient remains mildly tachycardic and hypotensive, additional IV fluids are ordered. Time of Reevaluation #2: 02:11 Reevaluation #2: Reviewed radiology interpretation CT scan which agrees with my initial interpretation, possible early appendicitis. Due to persistent tachycardia and hypotension, lactate is ordered. Time of Reevaluation #3: 02:44 Reevaluation #3: Pelvic exam performed, patient with mild cervical motion tenderness predominantly on the left. At this point, IV antibiotics will be given for possible PID versus appendicitis, will initiate Zosyn and doxycycline. Will have surgery evaluate the patient morning and consider hydroelectric systems technician evaluation as well. Patient did develop a fever in spite of Toradol in the emergency department is having continued pain, Dilaudid IV is ordered along with Tylenol. Plan for ultrasound in the morning to further evaluate left-sided abdominal pain. Additional Reevaluation(s): 3:53 a.m. ultrasound arrived perform ultrasound, and I had planned to do this later in the morning but on-call was called and early. Ultrasound does not demonstrate acute findings. Will discuss with General surgery in the morning. 5:15 a.m. care discussed with Dr. Hannon, general surgery who reviewed imaging. Agrees that CT is some not entirely convincing for acute appendicitis in light of equivocal exam, patient can either go for appendectomy this morning or home with follow-up in 24 hours. Discussed options with patient, she would like to talk to her mom and make some plans from there. 5:[address] Hannon, patient would like to proceed with surgery today. Updated that patient will be held in ED until time of surgery due to no availability of beds for admission. Vital Signs Vital signs: Initial Vital Signs Temperature 98.2 F 07/29/24 23:22 Temperature Source Temporal Artery Scan 07/29/24 23:22 Pulse Rate 115 H 07/29/24 23:22 Respiratory Rate 20 07/29/24 23:22 Blood Pressure 140/70 H 07/29/24 23:22 Blood Pressure Mean 93 07/29/24 23:22 Blood Pressure Position Sitting 07/29/24 23:22 Pulse Oximetry 99 07/29/24 23:22 Oxygen Delivery Method Room Air 07/29/24 23:22 Vital Signs Temperature 98.2 F 07/29/24 23:22 Pulse Rate 115 H 07/29/24 23:22 Respiratory Rate 20 07/29/24 23:22 Blood Pressure 140/70 H 07/29/24 23:22 Pulse Oximetry 99 07/29/24 23:22 Oxygen Delivery Method Room Air 07/29/24 23:22 Temperature 99.4 F 07/30/24 03:52 Pulse Rate 97 07/30/24 03:52 Respiratory Rate 20 07/30/24 03:52 Blood Pressure 111/62 07/30/24 03:52 Pulse Oximetry 99 07/30/24 03:52 Oxygen Delivery Method Room Air 07/30/24 03:52 Medications Administered Medications: Generic Name Dose Route Start Last Admin Trade Name Isaiq PRN Reason Stop Dose Admin Lactated Ringer's 1,000 mls @ 125 mls/hr 07/30/24 04:20 07/30/24 05:20 Lactated Ringers 1000 Ml IV 125 mls/hr .Q8H DALILA Administration Ondansetron HCl 4 mg 07/30/24 05:21 07/30/24 05:23 Ondansetron 2 Mg/Ml Inj IVP 07/30/24 05:22 4 mg ONCE ONE Administration Discontinued Medications Generic Name Dose Route Start Last Admin Trade Name Toro PRN Reason Stop Dose Admin Doxycycline Hyclate 100 mg 07/30/24 02:45 07/30/24 02:56 Doxycycline Hyclate 100 Mg PO 07/30/24 02:46 100 mg ONCE ONE Administration Hydromorphone HCl 0.5 mg 07/30/24 02:48 07/30/24 02:56 Hydromorphone 0.5 Mg/0.5 Ml Inj IVP 07/30/24 02:49 0.5 mg ONCE ONE Administration Sodium Chloride 1,000 mls @ 1,000 mls/hr 07/30/24 00:45 07/30/24 02:00 0.9 % Sodium Chloride 1000 Ml IV 07/30/24 01:44 Infused .Q1H DALILA Infusion Sodium Chloride 1,000 mls @ 1,000 mls/hr 07/30/24 02:00 07/30/24 02:47 0.9 % Sodium Chloride 1000 Ml IV 07/30/24 02:59 Infused .Q1H DALILA Infusion Piperacillin Sod/Tazobactam 100 mls @ 100 mls/hr 07/30/24 02:45 07/30/24 03:51 Sod 3.375 gm/ Sodium Chloride IVPB 07/30/24 02:46 Infused ONCE ONE Infusion Ketorolac Tromethamine 15 mg 07/30/24 00:34 07/30/24 00:43 Ketorolac 15 Mg/Ml Inj IVP 07/30/24 00:35 15 mg ONCE ONE Administration Ketorolac Tromethamine 15 mg 07/30/24 01:38 07/30/24 01:44 Ketorolac 15 Mg/Ml Inj IVP 07/30/24 01:39 15 mg ONCE ONE Administration Ondansetron HCl 4 mg 07/30/24 00:24 07/30/24 00:26 Ondansetron 2 Mg/Ml Inj IVP 07/30/24 00:25 4 mg ONCE ONE Administration MDM - Abdominal Pain Lab Data Labs: Lab Results 07/29/24 07/30/24 07/30/24 Range/Units 23:15 00:20 02:25 WBC 11.90 H (4.50-11.00) K/uL RBC 4.95 (4.00-5.20) m/uL Hgb 15.1 (12.0-16.0) gm/dL Hct 42.9 (33.0-51.0) % MCV 87 (80-100) fL MCH 31 (26-34) pg MCHC 35 (32-36) gm/dL RDW Coeff of Trae 12.5 (11.5-15.5) % Plt Count 294 (140-440) K/uL Neut % (Auto) 89.4 H (42.0-72.0) % Lymph % (Auto) 6.0 L (20-44) % Quay % (Auto) 4.2 (0.0-11.0) % Eos % (Auto) 0.0 (0.0-7.0) % Baso % (Auto) 0.2 (0.0-3.0) % Neut # (Auto) 10.60 H (1.7-7.0) K/uL Lymph # (Auto) 0.70 L (0.90-2.90) K/uL Quay # (Auto) 0.50 (0.00-0.90) K/UL Eos # (Auto) 0.00 (0.00-0.50) K/uL Baso # (Auto) 0.00 (0.00-0.30) K/uL Abs Immat Gran (auto) 0.00 (0.00-0.30) K/uL Imm/Tot Granulo (auto) 0.2 % Sodium 134 L (135-149) mmol/L Potassium 3.5 L (3.6-5.1) mmol/L Chloride 102 (96-114) mmol/L Carbon Dioxide 21 (20-32) mmol/L Anion Gap 11 (7-15) mEq/L BUN 16 (5-24) mg/dL Creatinine 0.8 (0.5-1.5) mg/dL Estimated Creat Clear 95.25 Estimated GFR 107 ml/min Glucose 127 H (60-115) mg/dL Lactate 1.0 (0.5-1.9) mmol/L Calcium 9.0 (8.4-10.6) mg/dL Magnesium 1.8 (1.5-2.6) mg/dL Urine Color Yellow (Yellow) Urine Appearance Clear (Clear) Urine pH 6.5 (5.0-8.5) Ur Specific Campbell 1.020 (1.000-1.030) Urine Protein Negative (Negative) Urine Glucose (UA) Negative (Negative) Urine Ketones Negative (Negative) Urine Blood Negative (Negative) Urine Nitrite Negative (Negative) Urine Bilirubin Negative (Negative) Urine Urobilinogen 0.2 (0.2-1.0) Ur Leukocyte Esterase Negative (Negative) Urine RBC 0-2 (0-2) Urine WBC 2-5 (0-5) Ur Squamous Epith Cells Few (None-Few) Amorphous Sediment Few A (None) Urine Bacteria Few A (None) Urine Mucus Few A (None) Urine HCG, Qual Negative (Negative) Vaginal Trichomonas (None Seen) Vaginal Yeast (None Seen) Vaginal Clue Cells (None Seen) Vaginal Bacterial Vaginosis (Negative) Vaginal Jessica species (No Detected) Vag C. glabrata/krusei (No Detected) Vag T. vaginalis (No Detected) C.trachomatis Ampl DNA (No Detected) SARS-CoV-2 (PCR) Negative SARS-CoV-2 (Negative) Influenza Type A (PCR) Negative PCR FLU A (Negative) Influenza Type B (PCR) Negative PCR FLU B (Negative) N.gonorrhoeae Ampl DNA (No Detected) RSV (PCR) Negative PCR RSV (Negative) 07/30/24 07/30/24 Range/Units 02:34 Unknown WBC (4.50-11.00) K/uL RBC (4.00-5.20) m/uL Hgb (12.0-16.0) gm/dL Hct (33.0-51.0) % MCV (80-100) fL MCH (26-34) pg MCHC (32-36) gm/dL RDW Coeff of Trae (11.5-15.5) % Plt Count (140-440) K/uL Neut % (Auto) (42.0-72.0) % Lymph % (Auto) (20-44) % Quay % (Auto) (0.0-11.0) % Eos % (Auto) (0.0-7.0) % Baso % (Auto) (0.0-3.0) % Neut # (Auto) (1.7-7.0) K/uL Lymph # (Auto) (0.90-2.90) K/uL Quay # (Auto) (0.00-0.90) K/UL Eos # (Auto) (0.00-0.50) K/uL Baso # (Auto) (0.00-0.30) K/uL Abs Immat Gran (auto) (0.00-0.30) K/uL Imm/Tot Granulo (auto) % Sodium (135-149) mmol/L Potassium (3.6-5.1) mmol/L Chloride (96-114) mmol/L Carbon Dioxide (20-32) mmol/L Anion Gap (7-15) mEq/L BUN (5-24) mg/dL Creatinine (0.5-1.5) mg/dL Estimated Creat Clear Estimated GFR ml/min Glucose (60-115) mg/dL Lactate (0.5-1.9) mmol/L Calcium (8.4-10.6) mg/dL Magnesium (1.5-2.6) mg/dL Urine Color (Yellow) Urine Appearance (Clear) Urine pH (5.0-8.5) Ur Specific Campbell (1.000-1.030) Urine Protein (Negative) Urine Glucose (UA) (Negative) Urine Ketones (Negative) Urine Blood (Negative) Urine Nitrite (Negative) Urine Bilirubin (Negative) Urine Urobilinogen (0.2-1.0) Ur Leukocyte Esterase (Negative) Urine RBC (0-2) Urine WBC (0-5) Ur Squamous Epith Cells (None-Few) Amorphous Sediment (None) Urine Bacteria (None) Urine Mucus (None) Urine HCG, Qual (Negative) Vaginal Trichomonas No Trichomonas Seen (None Seen) Vaginal Yeast No Yeast Seen (None Seen) Vaginal Clue Cells No Clue Cells Seen (None Seen) Vaginal Bacterial Vaginosis Negative (Negative) Vaginal Jessica species NOT DETECTED (No Detected) Vag C. glabrata/krusei NOT DETECTED (No Detected) Vag T. vaginalis NOT DETECTED (No Detected) C.trachomatis Ampl DNA NOT DETECTED (No Detected) SARS-CoV-2 (PCR) (Negative) Influenza Type A (PCR) (Negative) Influenza Type B (PCR) (Negative) N.gonorrhoeae Ampl DNA NOT DETECTED (No Detected) RSV (PCR) (Negative) Discharge Plan Discharge Prescriptions: No Action escitalopram oxalate 10 mg tablet 10 mg PO DAILY Follow Up/Referrals: Lauryn Tate PA-C [Primary Care Provider] -
[2024-07-30] MEDS: ONDANSETRON 2 MG/ML inj 4 MG IVP ×3 (00:26→11:25)
--- NOTE | 2024-07-30 00:34 | CRLHL7_ITS ---
For Patients: As a result of the Century Cures Act, medical imaging exams and procedure reports are released immediately into your electronic medical record. You may view this report before your referring provider. If you have questions, please contact your health care provider. INDICATION: Lower abdominal pain. TECHNIQUE: CT abdomen and pelvis acquired with 110 cc Isovue 370 IV contrast. COMPARISON: None. FINDINGS: Lower chest: Scattered atelectasis. Liver: Unremarkable. Normal in size and attenuation. No suspicious masses. Gallbladder and bile ducts: Unremarkable. No stones or inflammation. No biliary dilatation. Pancreas: Unremarkable. No mass or inflammation. Spleen: Unremarkable. Normal in size. No masses. Adrenal glands: Unremarkable. No nodules. Kidneys: Unremarkable. No suspicious masses, stones, or hydronephrosis. GI tract: Mildly prominent appendix measuring 6 millimeters, with trace hyperemia but without periappendiceal inflammatory stranding. No bowel obstruction.. Vasculature: Abdominal aorta is normal in caliber. Mesenteric arteries are patent. Lymph nodes: Few mildly enlarged ileocolic lymph nodes Peritoneum/Abdominal Wall: Tiny fat containing umbilical hernia. No sign of mass or infiltration. No free air or significant free fluid. Pelvis: Unremarkable. Bones: Unremarkable for age. IMPRESSION: Mildly prominent appendix, measuring 6 millimeters, with trace hyperemia but without periappendiceal inflammatory stranding. Early appendicitis not entirely excluded. Recommend correlation with localized physical examination and laboratory values. Mildly enlarged ileocolic lymph nodes, possibly reactive or mesenteric adenitis in the appropriate clinical setting. Otherwise, no acute intra-abdominal/pelvic abnormality, including drainable fluid collections. Please note that all CT scans at this facility use dose modulation, iterative reconstruction, and/or weight-based dosing when appropriate to reduce radiation dose to as low as reasonably achievable. Dictated by Flo Sanchez MD @ 07/30/2024 1:52:04 AM (Electronically Signed)
[2024-07-30 00:41] LABS: Basophils Percent Auto 0.2 % (0.0-3.0); Hematocrit 42.9 % (33.0-51.0); Hemoglobin* 15.1 gm/dL (12.0-16.0); Immature Granulocytes Pct Auto 0.2 %; Mean Corpuscular HGB Conc 35 gm/dL (32-36); Mean Corpuscular Hemoglobin 31 pg (26-34); Mean Corpuscular Volume 87 fL (80-100); Monocytes Percent Auto 4.2 % (0.0-11.0); Neutrophils Percent Auto 89.4 % (42.0-72.0); Platelet Count* 294 K/uL (140-440); RDW Coefficient of Variation % 12.5 % (11.5-15.5); Red Blood Count 4.95 m/uL (4.00-5.20)
[2024-07-30] MEDS: KETOROLAC 15 MG/ML inj IVP ×3 (00:43→22:55)
[2024-07-30] MEDS: 0.9 % SODIUM CHLORIDE 1000 ml 1,000 ML IV ×2 (00:43→02:01)
[2024-07-30 00:46] LABS: Slide Review Reflex No
--- OUTSIDE RECORDS SUMMARY | 2024-07-30 00:46 | XMS_ITS | Continuity of Care Document ---
Author Name [email or web address] Address Unknown Organization Unknown Address Unknown Procedures FILTER APPLIED:Only known Procedures with Onset Date within the last 5 years Procedure Date Procedure Provider Additiona l Information Status C-REACTIVE PROTEIN (87995) Completed RBC SED RATE NONAUTOMATED (33829) Completed FIBRIN DEGRADATION QUANT (21480) Completed COMPLETE CBC W/AUTO DIFF WBC (03933) Completed ASSAY OF TROPONIN QUANT (07330) Completed MEASURE BLOOD OXYGEN LEVEL (63231) Completed COMPREHEN METABOLIC PANEL (84821) Completed ROUTINE VENIPUNCTURE (82504) Completed EMERGENCY DEPT VISIT MOD MDM (84313) Completed ELECTROCARDIOGRAM TRACING (35558) Completed ASSAY OF NATRIURETIC PEPTIDE (47717) Completed ELECTROCARDIOGRAM TRACING (49780) Completed EMERGENCY DEPT VISIT MOD MDM (00754) Completed COMPLETE CBC W/AUTO DIFF WBC (69697) Completed CHORIONIC GONADOTROPIN ASSAY (43798) Completed ASSAY OF TROPONIN QUANT (10931) Completed ASSAY THYROID STIM HORMONE (33906) Completed METABOLIC PANEL TOTAL CA (99631) Completed EMERGENCY DEPT VISIT HI MDM (27020) Completed ROUTINE VENIPUNCTURE (37840) Completed CT HEAD/BRAIN W/O DYE (09349) Completed HYDRATE IV INFUSION ADD-ON (21912) Completed THER/PROPH/DIAG INJ IV PUSH (04031) Completed TX/PRO/DX INJ NEW DRUG ADDON (65592) Completed SLEEP STUDY UNATT RESP EFFT (49294) Completed Encounters FILTER APPLIED:Only known Encounters with Admission Date within the last 5 years Encounter Location Admission Discharge Billing Code Importer Exporter A [facility]dir[facility] Out[facility] figueredo Emergency Yamilex [facility]
--- OUTSIDE RECORDS SUMMARY | 2024-07-30 00:46 | XMS_ITS | Clinical Summary ---
Author Organization [facility] Address [address] [place] [address] Care Team Providers Care Wood Shingle Roofer Name Role Phone Elsewhere, Pcp Primary Care Provider Unavailabl e Source Comments Patient records contain information from all sites at [facility]. For routine questions regarding patient records, call [phone] during business hours, M-F 8:00 AM - 5:00 PM Central Time. 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 Gender Identity Not on file Sexual Orientation Not on file Last Filed Vital Signs Vital Sign Reading Time Taken Comments Blood Pressure 119/61 07/09/2023 9:00 PM NAUTICAL INSTRUMENT MECHANIC Pulse 76 07/09/2023 9:00 PM NAUTICAL INSTRUMENT MECHANIC Temperature 36.3 C (97.3 F) 07/09/2023 6:18 PM NAUTICAL INSTRUMENT MECHANIC Respiratory Rate 18 07/09/2023 9:00 PM NAUTICAL INSTRUMENT MECHANIC Oxygen Saturation 99% 07/09/2023 9:00 PM NAUTICAL INSTRUMENT MECHANIC Inhaled Oxygen Concentration - - Weight 93.6 kg (206 lb 5.6 oz) 07/09/2023 6:15 P M NAUTICAL INSTRUMENT MECHANIC Height 160.5 cm (5' 3.19) 07/29/2019 7:53 [...] 04/21/2015 Meningococcal Vaccine Completed 04/03/2020, 015 Insurance [facility] Care Teams Wood Shingle Roofer Relationship Specialty Start Date End Date Elsewhere, Pcp PCP - General Technology Analyst 07/29/19
--- OUTSIDE RECORDS SUMMARY | 2024-07-30 00:46 | XMS_ITS ---
Author Organization [facility] Address [address] [place] [address] Care Team Providers Care Egg Grader Name Role Phone Unavailable Unavailable Unavailable Surgery Details Not on file Complications Check Surgery Details section. Procedure Estimated Blood Loss Check Surgery Details section. Procedure Findings Check Surgery Details section. Procedure Specimens Taken Check Surgery Details section.
--- OUTSIDE RECORDS SUMMARY | 2024-07-30 00:46 | XMS_ITS | Clinical Summary ---
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
--- OUTSIDE RECORDS SUMMARY | 2024-07-30 00:46 | XMS_ITS | Referral Summary ---
Author Organization [facility] Address [address] [place] [address] Care Team Providers Care Portfolio Analyst Name Role Phone Elsewhere, Pcp Primary Care Provider Unavailabl e Source Comments Patient records contain information from all sites at [facility]. For routine questions regarding patient records, call [phone] during business hours, M-F 8:00 AM - 5:00 PM Central Time. Record requests for emergency care only can be directed to [phone] at any time.[facility] Allergies Active Allergy Reactions Criticality Noted Date [...] on file Legal Sex Female 2:10 PM FLIGHT TEST DATA ACQUISITION TECHNICIAN Gender Identity Not on file Sexual Orientation Not on file Last Filed Vital Signs Vital Sign Reading Time Taken Comments Blood Pressure 119/61 07/09/2023 9:00 PM FLIGHT TEST DATA ACQUISITION TECHNICIAN Pulse 76 07/09/2023 9:00 PM FLIGHT TEST DATA ACQUISITION TECHNICIAN Temperature 36.3 C (97.3 F) 07/09/2023 6:18 PM FLIGHT TEST DATA ACQUISITION TECHNICIAN Respiratory Rate 18 07/09/2023 9:00 PM FLIGHT TEST DATA ACQUISITION TECHNICIAN Oxygen Saturation 99% 07/09/2023 9:00 PM FLIGHT TEST DATA ACQUISITION TECHNICIAN Inhaled Oxygen Concentration - - Weight 93.6 kg (206 lb 5.6 oz) 07/09/2023 6:15 P M FLIGHT TEST DATA ACQUISITION TECHNICIAN Height 160.5 cm (5' 3.19) 07/29/2019 7:53 AM CS T Body Mass Index - - Plan of Treatment Not on file Insurance [facility] Care Teams Portfolio Analyst Relationship Specialty Start Date End Date Elsewhere, Pcp PCP - General Dancing Instructor 07/29/19
[2024-07-30 00:54] LABS: Chloride* 102 mmol/L (96-114); Potassium* 3.5 mmol/L (3.6-5.1); Sodium* 134 mmol/L (135-149)
[2024-07-30 00:57] LABS: Anion Gap 11 mEq/L (7-15); Blood Urea Nitrogen* 16 mg/dL (5-24); Carbon Dioxide* 21 mmol/L (20-32); Creatinine* 0.8 mg/dL (0.5-1.5); Est. Creatinine Clearance* 95.25; Estimated Glomerular Filt Rate 107 ml/min; Glucose* 127 mg/dL (60-115)
[2024-07-30 00:58] LABS: Magnesium* 1.8 mg/dL (1.5-2.6)
[2024-07-30 02:53] LABS: Clue Cells No Clue Cells Seen (None Seen); Trichomonas No Trichomonas Seen (None Seen); Yeast No Yeast Seen (None Seen)
--- NOTE | 2024-07-30 02:54 | CRLHL7_ITS ---
For Patients: As a result of the Century Cures Act, medical imaging exams and procedure reports are released immediately into your electronic medical record. You may view this report before your referring provider. If you have questions, please contact your health care provider. Indication: Pelvic pain Technique: Transvaginal pelvic ultrasound. Grayscale and color Doppler imaging utilized. Comparison: Same day CT abdomen pelvis Findings: Uterus: 8.8 x 3.8 x 4.5 centimeters. No masses or other significant parenchymal abnormality appreciated. Endometrium: 5 millimeters. Endometrium appears homogeneous. Right ovary: 3.2 x 1.7 x 1.8 centimeters. Unremarkable sonographic appearance. Doppler signal detected. Left ovary: 3.0 x 1.9 x 2.0 centimeters. Unremarkable sonographic appearance. Doppler signal detected. Other: No free fluid. Impression: No significant sonographic abnormality appreciated. Dictated by Alonzo Mena MD @ 07/30/2024 3:50:11 AM (Electronically Signed)
[2024-07-30] MEDS: PIPERACILLIN/TAZOBACTAM 3.375 GM in 0.9 % SODIUM CHLORIDE Mini-bag 100 ML IVPB ×2 (02:55→09:49)
[2024-07-30] MEDS: DOXYCYCLINE HYCLATE 100 MG PO (02:56)
[2024-07-30] MEDS: HYDROmorphone 0.5 mg/0.5 ml inj IVP ×7 (02:56→22:54)
[2024-07-30 03:46] LABS: Bacterial Vaginosis* Negative (Negative); Candida glab/krus NOT DETECTED (No Detected); Candida species NOT DETECTED (No Detected); Trichomonas vaginalis NOT DETECTED (No Detected)
[2024-07-30 04:10] LABS: Chlamydia DNA Amplified* NOT DETECTED (No Detected); GC DNA Amplified* NOT DETECTED (No Detected)
[2024-07-30] MEDS: LACTATED RINGERS 1000 ML 1,000 ML 125 ML IV (05:20)
--- NOTE | 2024-07-30 10:56 | P.GSHP_ITS ---
History of Present Illness History of Present Illness Date Seen: 07/30/24 Chief complaint: abdominal pain Narrative: Екатерина Verde is a 24 year old female who presented to the emergency department with lower pelvic pain. The pain started yesterday and was very severe. It has somewhat decreased in intensity, but is now more focused in the middle. She has never had pain like this before. Moving around in pushing on the area makes it worse. The pain medicines make it better. She does have some associated nausea, no emesis. Denies any diarrhea. She had fevers last night up to 102.7. She last ate yesterday evening. She is otherwise healthy, other than morbid obesity. Nonsmoker. She has never had surgery before. She denies any family history of problems with surgery, bleeding or blood clots. Review of Systems Status of ROS: Reports: 10 or more systems reviewed and unremarkable except as noted in History and below [facility] Medical History (Updated 07/30/24 @ 06:49 by Odell Thompson MD) Depression ?F32.A - Depression, unspecified (ICD-10) Asthma ?J45.909 - Unspecified asthma, uncomplicated (ICD-10) Surgical History (Updated 07/30/24 @ 00:36 by Rakesh Wolf RN) No significant past surgical history Social History (Updated 04/07/24 @ 14:42 by Josefa Davila [facility] Narrative: heidi-Ricky Smoking Status: Never smoker Do you use any of these nicotine containing products: None Second hand tobacco smoke exposure: No How often do you have a drink containing alcohol: never AUDIT-C Alcohol total score: 0 Non-prescribed substance use: denies use service: No Meds Home Medications and Allergies Home Medications ?Medication ?Instructions ?Recorded ?Confirmed ?Type escitalopram oxalate 10 mg tablet 10 mg PO DAILY 11/18/23 07/29/24 History Allergies Allergy/AdvReac Type Severity Reaction Status Date / Time topiramate Allergy Fainting Verified 07/30/24 01:42 Estrogens AdvReac Migraine Verified 07/30/24 01:42 Exam Narrative: Exam Narrative: General: Alert and oriented, nontoxic Respiratory: Equal breath rise, maintained on room air CV: Well perfused Abdomen: Obese abdomen, soft, some tenderness with deep palpation lower mid pelvis no guarding or rebound. Const: Vital Signs, click to edit/add: Vital Signs - 24 hr 07/29/24 23:22 07/30/24 00:17 07/30/24 00:19 Temperature 98.2 F Pulse Rate 115 H Pulse Rate [Right Pulse Oximeter] 115 H Respiratory Rate 20 20 Blood Pressure 105/74 Blood Pressure [Ri ght Upper Arm] 140/70 H Pulse Oximetry 99 99 98 Oxygen Delivery Me thod Room Air 07/30/24 00:27 07/30/24 00:40 07/30/24 00:43 Temperature 98.2 F Pulse Rate 111 H Pulse Rate [Right Pulse Oximeter] Respiratory Rate 20 Blood Pressure 101/54 L Blood Pressure [Ri ght Upper Arm] Pulse Oximetry 99 94 Oxygen Delivery Me thod 07/30/24 00:50 07/30/24 01:10 07/30/24 01:20 Temperature Pulse Rate Pulse Rate [Right Pulse Oximeter] Respiratory Rate Blood Pressure Blood Pressure [Ri ght Upper Arm] Pulse Oximetry 96 95 97 Oxygen Delivery Me thod 07/30/24 01:40 07/30/24 01:44 07/30/24 02:00 Temperature 98.2 F 98.2 F Pulse Rate Pulse Rate [Right Pulse Oximeter] Respiratory Rate Blood Pressure Blood Pressure [Ri ght Upper Arm] Pulse Oximetry 95 Oxygen Delivery Me thod 07/30/24 02:22 07/30/24 02:30 07/30/24 02:47 Temperature 100.5 F H 100.5 F H Pulse Rate Pulse Rate [Right Pulse Oximeter] 100 Respiratory Rate 20 Blood Pressure Blood Pressure [Ri ght Upper Arm] 108/63 Pulse Oximetry 99 99 Oxygen Delivery Me thod Room Air 07/30/24 03:52 07/30/24 04:10 07/30/24 04:20 Temperature 99.4 F Pulse Rate Pulse Rate [Right Pulse Oximeter] 97 Respiratory Rate 20 Blood Pressure Blood Pressure [Ri ght Upper Arm] 111/62 Pulse Oximetry 99 94 94 Oxygen Delivery Me thod Room Air 07/30/24 04:40 07/30/24 04:50 07/30/24 05:10 Temperature Pulse Rate Pulse Rate [Right Pulse Oximeter] Respiratory Rate Blood Pressure Blood Pressure [Ri ght Upper Arm] Pulse Oximetry 96 94 94 Oxygen Delivery Me thod 07/30/24 05:21 07/30/24 05:36 07/30/24 05:40 Temperature Pulse Rate 96 Pulse Rate [Right Pulse Oximeter] Respiratory Rate 20 Blood Pressure 127/71 Blood Pressure [Ri ght Upper Arm] Pulse Oximetry 97 98 96 Oxygen Delivery Sc thod 07/30/24 05:50 07/30/24 06:02 07/30/24 06:10 Temperature Pulse Rate 99 Pulse Rate [Right Pulse Oximeter] Respiratory Rate 20 Blood Pressure 113/70 Blood Pressure [Ri ght Upper Arm] Pulse Oximetry 97 95 93 Oxygen Delivery Sc thod 07/30/24 06:20 07/30/24 06:40 07/30/24 06:50 Temperature Pulse Rate Pulse Rate [Right Pulse Oximeter] Respiratory Rate Blood Pressure Blood Pressure [Ri ght Upper Arm] Pulse Oximetry 94 95 94 Oxygen Delivery Sc thod 07/30/24 07:00 07/30/24 07:02 07/30/24 07:04 Temperature Pulse Rate 92 99 103 H Pulse Rate [Right Pulse Oximeter] Respiratory Rate 20 Blood Pressure 119/46 L Blood Pressure [Ri ght Upper Arm] Pulse Oximetry 95 95 96 Oxygen Delivery Sc thod 07/30/24 07:10 07/30/24 07:15 07/30/24 07:20 Temperature Pulse Rate 83 Pulse Rate [Right Pulse Oximeter] Respiratory Rate Blood Pressure Blood Pressure [Ri ght Upper Arm] Pulse Oximetry 94 94 94 [facility] 07/[facility]/24 07:30 07/30/24 07:40 07/30/24 07:45 Temperature Pulse Rate 85 85 Pulse Rate [Right Pulse Oximeter] Respiratory Rate Blood Pressure Blood Pressure [Ri ght Upper Arm] Pulse Oximetry 94 94 94 Oxygen Delivery Sc thod 07/30/24 07:50 07/30/24 07:52 07/30/24 08:00 Temperature Pulse Rate 87 99 Pulse Rate [Right Pulse Oximeter] Respiratory Rate Blood Pressure 106/46 L Blood Pressure [Ri ght Upper Arm] Pulse Oximetry 97 95 97 Oxygen Delivery Sc thod 07/30/24 08:02 07/30/24 08:07 07/30/24 08:10 Temperature Pulse Rate 108 H Pulse Rate [Right Pulse Oximeter] Respiratory Rate Blood Pressure 109/42 L Blood Pressure [Ri ght Upper Arm] Pulse Oximetry 97 96 Oxygen Delivery Sc thod 07/30/24 08:15 07/30/24 08:30 07/30/24 08:45 Temperature Pulse Rate 83 82 82 Pulse Rate [Right Pulse Oximeter] Respiratory Rate Blood Pressure Blood Pressure [Ri ght Upper Arm] Pulse Oximetry 93 93 92 Oxygen Delivery Me thod Results Results Labs: WBC 11.9, left shift Abdomen CT scan report/results: report reviewed and image reviewed Progress Note:A&P Assessment and plan (1) Acute appendicitis: Status: Acute Assessment and Plan: The patient presented with a history, exam and imaging findings suspicious for an early acute appendicitis. Dilation of the appendix on CT imaging, no periappendiceal inflammation noted. Patient does have a leukocytosis with left shift. I discussed the treatment options with the patient including non-surgical and surgical options. We reviewed the findings on CT imaging, which are suspicious for an early appendicitis but not definitively diagnostic. I discussed the choices of conservative management with follow-up tomorrow to reassess symptoms versus proceeding to the operating room for removal of the appendix. The risks of surgery were reviewed with the patient including the risks of bleeding, post- operative wound or intra-abdominal infection, injury to abdominal structures and possible conversion to an open operation. We also discussed anesthetic complications including OH, stroke, respiratory failure and blood clots. The patient voiced an understanding of our conversation, had the opportunity to ask questions, agreed to accept the risks of surgery and asked that we proceed with surgery. -OR for laparoscopic appendectomy -IV Zosyn -and p.o.
[2024-07-30] MEDS: 0.9 % SODIUM CHLORIDE 1000 ml 500 ML 75 ML IV (14:07)
[2024-07-30] MEDS: BUPIVACAINE 0.25% 30 ML INJECTION (15:00)
--- NOTE | 2024-07-30 15:13 | P.GYNCN_ITS ---
THERMOGRAPH OPERATOR - CN: HPI Data of Consult Time Seen by Provider: 18:13 Date Seen: 07/30/24 Requesting Physician: Rosa Hannon MD Primary Care Provider: Lauryn Tate PA-C Consult Narrative Narrative: Екатерина Verde is a 24 year old female who was admitted for suspected appendicitis. I was contacted by Dr. Hannon, who was performing a laparoscopic appendectomy and requested intra-op Gynecology consult. I present in the operating room, where an SBAR was provided by Dr. Hannon. Briefly, patient presented to the ED on 07/30 with pelvic pain and fevers. CT A/P described an unremarkable pelvis with a mildly prominent appendix and trace hyperemia. Pelvic US was within normal limits, no mention of pelvic fluid or dilated fallopian tubes. GC/chlamydia swabs and wet prep were negative. She was noted to have mild leukocytosis, started on IV antibiotics for suspected appendicitis. During her laparoscopy, Dr. Hannon noted the presence of excess purulent-like pelvic fluid with abnormal appearing fallopian tubes. Her impression of the appendix was not necessarily consistent with an acute appendicitis to explain the presence of this suspected purulent fluid. I requested the patient be placed into Trendelenburg positioning to assess the pelvis. I agree that the bilateral fallopian tubes appear hyperemic and dilated. Particularly on the right, there is some increased pelvic fluid that appears to be yellow and somewhat opaque consistent with likely thin purulence. The bilateral ovaries appear unremarkable and there is no discrete organized pelvic abscess. I would recommend empiric treatment of pelvic inflammatory disease and suspected bilateral pyosalpinx. Given her presentation for pelvic pain pain, fever and pyosalpinx, I would favor treating these as a tuboovarian abscess with at least 24 hours of IV antibiotics. No surgical further surgical intervention is required from a gynecologic perspective, as no discrete pelvic abscess is seen. Recommend sample of the pelvic fluid be sent for bacterial culture. Recommend wash out of purulent fluid be performed by Dr. Hannon. Plan to maintain patient overnight inpatient on General Surgery service with Gynecology consultation. I visited with Екатерина after her PACU recovery. She affirmed above history. She notes that her pain started on Friday and was across the low abdomen and pe lvis. She had associated nausea vomiting on 07/29. She is sexually active with 1 male partner. She does not utilize anything for contraception at this time. Notes she did have some increased volume of white to clear discharge over the last few days. No vulvovaginal itching or burning. Infectious studies were negative in the ED as above. cc:: CC: Rosa Hannon MD [facility] Medical History (Updated 07/30/24 @ 18:20 by Amy Jean-Baptiste MD) Depression ?F32.A - Depression, unspecified (ICD-10) Asthma ?J45.909 - Unspecified asthma, uncomplicated (ICD-10) Surgical History (Updated 07/30/24 @ 00:36 by Rakesh Wolf RN) No significant past surgical history Social History (Updated 04/07/24 @ 14:42 by Josefa Nicholson ~ [facility], [facility]) Narrative: fiance-Ricky Smoking Status: Never smoker Do you use any of these nicotine containing products: None Second hand tobacco smoke exposure: No How often do you have a drink containing alcohol: never AUDIT-C Alcohol total score: 0 Non-prescribed substance use: denies use service: No Meds Home Medications and Allergies Home Medications ?Medication ?Instructions ?Recorded ?Confirmed ?Type escitalopram oxalate 10 mg tablet 10 mg PO DAILY 11/18/23 07/29/24 History Allergies Allergy/AdvReac Type Severity Reaction Status Date / Time topiramate Allergy Fainting Verified 07/30/24 01:42 Estrogens AdvReac Migraine Verified 07/30/24 01:42 THERMOGRAPH OPERATOR - Exam Physical Exam: Vital signs: Temp Pulse Resp BP Pulse Ox O2 Del Method 99.4 F 86 20 96/42 L 94 Room Air 07/30/24 03:52 07/30/24 12:15 07/30/24 12:02 07/30/24 12:02 07/30/24 12:15 07/30/24 03:52 Narrative: General: Alert and oriented, no acute distress Psych: Appropriate mood and affect Abdomen: Soft, nondistended. Mildly tender to palpation lower abdomen consistent with postoperative state. No rebound or guarding. THERMOGRAPH OPERATOR - Results Labs Labs: Short CBC 07/30/24 Range/Units 00:20 WBC 11.90 H (4.50-11.00) K/uL Hgb 15.1 (12.0-16.0) gm/dL Hct 42.9 (33.0-51.0) % Plt Count 294 (140-440) K/uL BMP 07/30/24 00:20 Sodium 134 L Potassium 3.5 L Chloride 102 Carbon Dioxide 21 BUN 16 Creatinine 0.8 Glucose 127 H Calcium 9.0 Urine 07/29/24 Range/Units 23:15 Urine Color Yellow (Yellow) Urine Appearance Clear (Clear) Urine pH 6.5 (5.0-8.5) Ur Specific [place] 1.020 (1.000-1.030) Urine Protein Negative (Negative) Urine Glucose (UA) Negative (Negative) Assessment and Plan Assessment and plan (1) Pelvic inflammatory disease (PID): Status: Acute (2) Pyosalpinx: Status: Acute Plan Екатерина is a 24-year-old admitted to General surgery in the setting of suspected appendicitis. I was consulted intraoperatively by Dr. Hannon, where there was bilateral hyperemia of the fallopian tubes, tubal dilation and suspected pyosalpinx. She was admitted with fevers up to 103 deg F at home, leukocytosis of 11k, nausea/vomiting. Given her clinical picture and intraoperative findings, I would favor empiric treatment for PID with IV antibiotics for a minimum of 24 hours. She was previously on Zosyn/flagyl, which will have provided initial coverage. Recommend revision of antibiotic regimen to IV ceftriaxone 1g q24h, doxycyline 100mg BID IV and metronidazole 500mg BID IV. Once she demonstrates clinical improvement with resolution of fever, leukocytosis (though this may be unreliable in the acute post-op period) and improvement of her pain/nausea/vomiting, her antibiotics can be revised to PO doxycycline 100mg BID and flagyl 500mg BID x total of 14 days. Recommend repeat CBC in the morning. Post-operative cares and analgesia per General Surgery service. All questions answered.
--- NOTE | 2024-07-30 15:17 | P.GSOP_ITS ---
Operative Note Date of procedure: 07/30/24 Pre-op diagnosis: Acute appendicitis Post-op diagnosis: Normal appendix, pelvic inflammatory disease Type of Procedure: Laparoscopic appendectomy, diagnostic laparoscopy Indications: Patient is a 24-year-old female who presented to the emergency department with lower pelvic abdominal pain. Workup was obtained with evidence of leukocytosis. CT scan showed mild dilation of the appendix. Findings were suspicious for possible appendicitis. Different treatment options were reviewed with the pat ient, please see consultation note for full discussion. Risks and benefits of operative intervention were discussed at length with the patient. Risks included but was not limited to: Bleeding, infection, risk of damage to surrounding structures, possible need for additional procedures, possible need to convert to an open operation and postoperative complications such as pneumonia, pulmonary emboli or NC. All questions and concerns were addressed with the patient agreeing to proceed. Procedure Description: After discussing the risks and benefits of the procedure, the patient signed informed consent.? The operative site was marked and the patient was brought to the operating room and placed on the operating table in supine position.? Care was taken to pad the patient's pressure points.?? The patient was then intubated by anesthesia.?? The operative site was then prepped and draped in the usual sterile fashion.? A time-out was then performed. Entrance to the abdomen was obtained via a 5 mm optical trocar in the left upper quadrant. The abdomen was insufflated and briefly surveyed for any signs of injury. There were none. A 12 mm port was placed at the umbilicus as well as a 5 mm port in the left lower quadrant under direct vision. The patient was then placed in Trendelenburg position with the right side up. The small bowel was gently moved out of the way and the appendix was in view. The appendix was very long, minimally dilated. There was no surrounding inflammation and no signs of appendicitis. The abdomen was briefly surveyed. The liver was very smooth and healthy in appearance. Gallbladder was mildly dilated, but did not appear inflamed. Within the pelvis was some murky fluid. Bilateral fallopian tubes looked edematous and erythematous. The uterus also was erythematous. An intraoperative consultation was done by Dr. Jean-Baptiste from gynecology. With her guidance I lifted the fallopian tube, with evidence of purulence within it. The posterior aspect of the uterus was also inspected. There was no obvious abscess identified. Findings were consistent with tubular ovarian abscess. Some of the fluid was aspirated and sent for culture. The decision was made to proceed with a laparoscopic appendectomy. This had been previously discussed with the patient, with recommendations to remove the appendix even if it appeared normal. A small amount of dissection was necessary to free the appendix from the surrounding pelvic attachments. The body of the appendix was grasped and pulled into view. A mesenteric window was created between the base of the appendix and the mesoappendix. A 60 mm Endo-[place] purple load stapler was then used to transect the appendix at its base. A 60 mm vascular load stapler was then used to take the mesoappendix. The staple lines were inspected for bleeding, a small pinpoint area bleeding was controlled with a 5 mm clip. The appendix was then removed from the abdomen using an Endo-Catch bag. The specimen was sent to pathology. The 12 mm port site fascia was closed with 0 Vicryl via the Gurinder-Sarah. All other ports were removed under direct visualization. The skin was then closed with absorbable subcuticular suture. Sterile dressings were then applied. Instrument sponge and needle counts were correct at the end of the case. The patient was then woken and transported to the PACU in stable condition. Findings: Normal appearing appendix. Erythematous and inflamed bilateral fallopian tube and uterus. Findings consistent with PID. Anesthesia: GETA Surgeon: Rosa Hannon MD Estimated blood loss (mL): 5 Specimen: Appendix Additional Specimen Information: Intra-abdominal fluid for culture Condition: stable Disposition: PACU
--- NOTE | 2024-07-30 15:39 | P.ANES_ITS ---
Anesthesia Charges Start Date/Time Anesthesia Start Date: 07/30/24 Anesthesia Start Time: 13:42 Stop Date/Time Anesthesia Stop Date: 07/30/24 Anesthesia Stop Time: 15:22 Coding CPT Codes CPT Codes: ANESTH SURG LOWER ABDOMEN - 06742 ([id number]) P2 - PATIENT W/MILD SYST DISEASE, QZ - KNITTER OPERATOR SVC W/O IT LEAD BY
--- NOTE | 2024-07-30 15:39 | W.ANESCHARGE ---
Anesthesia Charges Start Date/Time Anesthesia Start Date: 07/30/24 Anesthesia Start Time: 13:42 Stop Date/Time Anesthesia Stop Date: 07/30/24 Anesthesia Stop Time: 15:22 Coding CPT Codes CPT Codes: ANESTH SURG LOWER ABDOMEN - 64740 ([id number]) P2 - PATIENT W/MILD SYST DISEASE, QZ - FOOD BEVERAGE SUPERVISOR SVC W/O ANIMAL CARE TAKER BY
[2024-07-30] MEDS: fentaNYL 100 MCG/2 ML inj 50 MCG IVP (15:48)
[2024-07-30] MEDS: 0.9 % SODIUM CHLORIDE 1000 ml 500 ML 30 ML IV (15:52)
--- NOTE | 2024-07-30 16:25 | SUR.PHASEII ---
Patient to Phase II to wait for a bed on [facility]. Patient tolerated water and vaseline on her lips. Patient has an ice pack on abdomen. Osiris García has patient belongings and was brought to the room in Phase II.
[2024-07-30] MEDS: cefTRIAXone 1 GM in 0.9 % SODIUM CHLORIDE Mini-bag 100 ML IVPB (18:16)
[2024-07-30] MEDS: ONDANSETRON 2 MG/ML inj IVP (18:43)
[2024-07-30] MEDS: metroNIDAZOLE 500 MG/100 ML PIGGYBACK 100 MG IVPB (19:00)
--- NOTE | 2024-07-30 19:32 | PC.NURSE ---
Pt alert and oriented. Pt arrived from surgery around 1640. Pt up with SBA. Pt advanced to regular diet and tolerating ok. Pt had complaints of pain at a 5-10; Pt has ice in place and see EMAR for pain medications.?
[2024-07-30] MEDS: DOXYCYCLINE HYCLATE 100 MG in 0.9 % SODIUM CHLORIDE Mini-bag 100 ML IVPB (21:03)
[2024-07-31 03:00] VITALS: BP 115/63; PULSE 86; RESP 16; TEMP 37.1; O2SAT 95
[2024-07-31 06:44] LABS: Basophils Percent Auto 0.2 % (0.0-3.0); Hematocrit 41.6 % (33.0-51.0); Hemoglobin* 14.3 gm/dL (12.0-16.0); Immature Granulocytes Pct Auto 0.2 %; Lymphocytes Percent Auto 18.6 % (20-44); Mean Corpuscular HGB Conc 34 gm/dL (32-36); Mean Corpuscular Hemoglobin 31 pg (26-34); Mean Corpuscular Volume 90 fL (80-100); Monocytes Percent Auto 5.9 % (0.0-11.0); Neutrophils Percent Auto 75.1 % (42.0-72.0); Platelet Count* 265 K/uL (140-440); RDW Coefficient of Variation % 13.1 % (11.5-15.5); Red Blood Count 4.64 m/uL (4.00-5.20); White Blood Count* 12.32 K/uL (4.50-11.00)
[2024-07-31] MEDS: HYDROmorphone 0.5 mg/0.5 ml inj IVP (06:44)
[2024-07-31] MEDS: KETOROLAC 15 MG/ML inj IVP ×3 (06:45→18:19)
[2024-07-31] MEDS: metroNIDAZOLE 500 MG/100 ML PIGGYBACK 100 MG IVPB ×2 (06:45→18:25)
[2024-07-31 06:47] LABS: Slide Review Reflex No
[2024-07-31 07:32] VITALS: BP 115/63; PULSE 97; RESP 16; TEMP 36.6; O2SAT 94
[2024-07-31] MEDS: DOXYCYCLINE HYCLATE 100 MG in 0.9 % SODIUM CHLORIDE Mini-bag 100 ML IVPB ×2 (09:09→20:02)
[2024-07-31] MEDS: HYDROCODONE-ACETAMIN 5-325 MG 1 TAB PO ×2 (09:12→17:08)
--- NOTE | 2024-07-31 10:00 | PM.GSPN ---
Subjective Subjective Date Seen: 07/31/24 Interval history: Patient is doing okay this morning. She still has lower abdominal pain. She describes this as ?soreness?. Not as severe as it was yesterday. Denies any significant pain at her incision sites. She has been able to get up and walk the halls. She is tolerating regular diet without difficulty. No fevers overnight. Exam Narrative: Exam Narrative: General: Alert and oriented, no acute distress Abdomen: Soft, nontender and nondistended. Incisions clean/dry/intact. On deep palpation some discomfort in the lower pelvis. No guarding or rebound. Const: Vital Signs, click to edit/add: Vital Signs - 24 hr 07/30/24 10:02 07/30/24 10:15 07/30/24 10:30 Temperature Pulse Rate 96 85 90 Pulse Rate [Pulse Oximeter] Respiratory Rate Blood Pressure 109/68 Blood Pressure [Ri ght Arm] Pulse Oximetry 97 96 96 Oxygen Delivery Me thod Oxygen Flow Rate 07/30/24 10:45 07/30/24 11:00 07/30/24 11:02 Temperature Pulse Rate 87 85 82 Pulse Rate [Pulse Oximeter] Respiratory Rate Blood Pressure 131/63 Blood Pressure [Ri ght Arm] Pulse Oximetry 95 94 95 Oxygen Delivery Me thod Oxygen Flow Rate 07/30/24 11:03 07/30/24 11:15 07/30/24 11:30 Temperature Pulse Rate 96 85 91 Pulse Rate [Pulse Oximeter] Respiratory Rate Blood Pressure Blood Pressure [Ri ght Arm] Pulse Oximetry 96 94 97 Oxygen Delivery Me thod Oxygen Flow Rate 07/30/24 11:45 07/30/24 12:00 07/30/24 12:02 Temperature Pulse Rate 81 80 93 Pulse Rate [Pulse Oximeter] Respiratory Rate 20 Blood Pressure 96/42 L Blood Pressure [Ri ght Arm] Pulse Oximetry 94 93 94 Oxygen Delivery Me thod Oxygen Flow Rate 07/30/24 12:15 07/30/24 15:18 07/30/24 15:25 Temperature 97.2 F L Pulse Rate 86 75 89 Pulse Rate [Pulse Oximeter] Respiratory Rate 15 16 Blood Pressure 120/75 107/75 Blood Pressure [Ri ght Arm] Pulse Oximetry 94 95 97 Oxygen Delivery Me thod Nasal Cannula Oxygen Flow Rate 2 07/30/24 15:30 07/30/24 15:35 07/30/24 15:40 Temperature Pulse Rate 70 87 77 Pulse Rate [Pulse Oximeter] Respiratory Rate 14 16 14 Blood Pressure 113/62 109/60 112/67 Blood Pressure [Ri ght Arm] Pulse Oximetry 97 95 93 Oxygen Delivery Me thod Oxygen Flow Rate 07/30/24 15:45 07/30/24 15:50 07/30/24 15:55 Temperature 97.5 F L Pulse Rate 75 84 80 Pulse Rate [Pulse Oximeter] Respiratory Rate 16 18 16 Blood Pressure 111/42 L 117/67 113/62 Blood Pressure [Ri ght Arm] Pulse Oximetry 93 95 94 Oxygen Delivery Me thod Oxygen Flow Rate 1 07/30/24 16:00 07/30/24 16:15 07/30/24 16:30 Temperature 98.1 F Pulse Rate 80 74 98 Pulse Rate [Pulse Oximeter] Respiratory Rate 16 16 Blood Pressure 133/53 L 123/56 L 122/67 Blood Pressure [Ri ght Arm] Pulse Oximetry 92 96 93 Oxygen Delivery Me thod Nasal Cannula Nasal Cannula Nasal Cannula Oxygen Flow Rate 2 2 2 07/30/24 16:40 07/30/24 16:45 07/30/24 17:00 Temperature 98.5 F 98.5 F 97.9 F Pulse Rate 87 87 94 Pulse Rate [Pulse Oximeter] Respiratory Rate 18 18 16 Blood Pressure 122/69 122/69 116/72 Blood Pressure [Ri ght Arm] Pulse Oximetry 90 90 95 Oxygen Delivery Me thod Nasal Cannula Nasal Cannula Nasal Cannula Oxygen Flow Rate 2 2 2 07/30/24 17:30 07/30/24 18:00 07/30/24 19:00 Temperature 98.2 F 97.8 F 99.3 F Pulse Rate 82 99 105 H Pulse Rate [Pulse Oximeter] Respiratory Rate 16 16 16 Blood Pressure 134/90 H 114/86 143/98 H Blood Pressure [Ri ght Arm] Pulse Oximetry 92 99 96 Oxygen Delivery Me thod Nasal Cannula Nasal Cannula Nasal Cannula Oxygen Flow Rate 2 2 2 07/30/24 20:00 07/30/24 21:00 07/30/24 22:00 Temperature 98.6 F 99.2 F 99.2 F Pulse Rate 101 H 109 H 103 H Pulse Rate [Pulse Oximeter] Respiratory Rate 20 20 Blood Pressure 123/60 145/62 H 155/81 H Blood Pressure [Ri ght Arm] Pulse Oximetry 96 96 95 Oxygen Delivery Me thod Nasal Cannula Oxygen Flow Rate 1.5 07/30/24 23:00 07/31/24 03:00 07/31/24 07:32 Temperature 99.5 F 98.7 F 97.9 F Pulse Rate Pulse Rate [Pulse Oximeter] 110 H 86 97 Respiratory Rate 20 16 16 Blood Pressure Blood Pressure [Ri ght Arm] 141/63 H 115/63 115/63 Pulse Oximetry 97 95 94 Oxygen Delivery Me thod Nasal Cannula Nasal Cannula Nasal Cannula Oxygen Flow Rate 1.5 1.5 2 Labs/Imaging Labs Labs: Leukocytosis (12) Progress Note:A&P Assessment and plan (1) Pelvic inflammatory disease (PID): Status: Acute Assessment and Plan: Patient postop day 1 laparoscopic appendectomy. Intraoperatively findings concerning for pelvic inflammatory disease and pyosalpinx. Intraoperative gynecology consult. Doing well from a surgical perspective. Pain as expected. Vital signs stable and afebrile. Tolerating regular diet. Continued cares and antibiotics gynecology team. Recommendations at this time are for the patient to stay and continue IV antibiotics. (2) Pyosalpinx: Status: Acute (3) Acute appendicitis: Status: Acute
--- NOTE | 2024-07-31 10:12 | PM.GYNCN1 ---
HOISTING MACHINE OPERATOR - CN: HPI Data of Consult Time Seen by Provider: 09:30 Date Seen: 07/31/24 Patient: [facility] Patient Requesting Physician: Rosa Hannon MD Primary Care Provider: Lauryn Tate PA-C Consult Narrative Reason for consult: pelvic inflammatory disease Narrative: Екатерина Verde is a 24 year old female G0 POD#1 from diagnostic laparoscopy and appendectomy. Intraoperative was diagnosed with pelvic inflammatory disease/pyosalpinx due to interoperative findings. Overnight patient had no complaints. Feeling fatigued but recently started advancing milestones this AM. Pain has decreased since admission. Soreness at incision site and lower quadrants. Her pain is well controlled on oral pain medications. She is tolerating a regular diet. She has passed flatus. She has recently started ambulating. Reports more discomfort with ambulation than she would like. Denies any abnormal vaginal discharge or bleeding. She is urinating without valdez. Patient denies chest pain, SOB, n/v, headache, dizziness. Discussed with patient the diagnosis PID/pyosalpinx which is an acute infection of the upper genital tract. It is usually polymicrobial and can be from specific infection such as gonorrhea, chlamydia, as well as vaginal abbi. Reassuringly, she is negative for GC/Chlam, trich, yeast or BV. This can also arise from local infectious spread associated with appendicitis, inflammatory bowel disease etc. Interestingly, her appendix was fairly healthy appearing per op note. Patient and partner had thoughtful questions about penitentiary sequelae, particularly infertility and abnormal pregnancies. Preservation of fertility is critical for them. While PID does increase her risk of tubal scarring, infertility, ectopic , pelvic pain, reassured patient that the callaway preventing intermediate frame tender sequelae is prompt and appropriate treatment. Additionally, we also want to minimize recurrence as repeated episodes portends worse outcomes. Emphasized safe sex practices such as male condoms. We reviewed treatment plan which is 24hr afebrile or 24 hr of IV abx, whichever one is longer. She will be discharged on a two week course of oral antibiotic as well. cc:: CC: Rosa Hannon MD Review of Systems Status of ROS: Reports: 6 or more systems reviewed and unremarkable except as noted in History and below [facility] Medical History (Updated 07/30/24 @ 18:20 by Amy Jean-Baptiste MD) Depression ?F32.A - Depression, unspecified (ICD-10) Asthma ?J45.909 - Unspecified asthma, uncomplicated (ICD-10) Surgical History (Updated 07/30/24 @ 00:36 by Rakesh Wolf RN) No significant past surgical history Social History (Updated 04/07/24 @ 14:42 by Josefa Nicholson ~ [facility]) Narrative: Magdalene Smoking Status: Never smoker Do you use any of these nicotine containing products: None Second hand tobacco smoke exposure: No How often do you have a drink containing alcohol: never AUDIT-C Alcohol total score: 0 Non-prescribed substance use: denies use service: No Meds Home Medications and Allergies Home Medications ?Medication ?Instructions ?Recorded ?Confirmed ?Type escitalopram oxalate 10 mg tablet 10 mg PO DAILY 11/18/23 07/29/24 History Allergies Allergy/AdvReac Type Severity Reaction Status Date / Time topiramate Allergy Fainting Verified 07/30/24 01:42 Estrogens AdvReac Migraine Verified 07/30/24 01:42 HOISTING MACHINE OPERATOR - Exam Physical Exam: Vital signs: Temp Pulse Resp BP Pulse Ox O2 Del Method O2 Flow Rate 97.9 F 97 16 115/63 94 Nasal Cannula 2 07/31/24 07:32 07/31/24 07:32 07/31/24 07:32 07/31/24 07:32 07/31/24 07:32 07/31/24 07:32 07/31/24 07:32 Narrative: Physical exam: General: No acute distress Psych: Alert and oriented x4, full affect HEENT: Normocephalic, atraumatic Heart: Regular rate and rhythm, no murmur rub or gallop Lungs: Clear to auscultation bilaterally Abdomen: Normoactive bowel sounds, soft, mild tenderness in lower quadrant, no rebound, or guarding Incision(s): Appropriately tender to palpation. Clean, dry, and intact. No erythema, induration, or abnormal discharge/breakdown Skin: No lesions or rashes Lower extremities: No edema or erythema Pelvic exam: Deferred HOISTING MACHINE OPERATOR - Results Labs Labs: Short CBC 07/31/24 Range/Units 06:26 WBC 12.32 H (4.50-11.00) K/uL Hgb 14.3 (12.0-16.0) gm/dL Hct 41.6 (33.0-51.0) % Plt Count 265 (140-440) K/uL Assessment and Plan Assessment and plan (1) Pelvic inflammatory disease (PID): Status: Acute Assessment and Plan: - Continue IV ceftriaxone 1g Q24h, doxycycline 100 mg BID, and metronidazole 500 mg BID for at least 24 hrs. - Mild tenderness localized to lower abdominal quadrant likely 2/2 to pelvic peritonitis - Afebrile for over 24 hrs now - Leukocytosis stable at 12, likely from acute infection and postop state - CBC in AM - Will discharge on PO abx. Anticipated discharge tomorrow - Rest per primary team (2) Pyosalpinx: Status: Acute (3) Acute appendicitis: Status: Acute Assessment and Plan: - s/p laparoscopic appendectomy
[2024-07-31 11:31] VITALS: BP 130/66; PULSE 82; RESP 18; TEMP 37.3; O2SAT 94
[2024-07-31 15:23] VITALS: BP 118/64; PULSE 92; RESP 16; TEMP 36.4; O2SAT 93
[2024-07-31] MEDS: cefTRIAXone 1 GM in 0.9 % SODIUM CHLORIDE Mini-bag 100 ML IVPB (17:51)
--- NOTE | 2024-07-31 18:52 | PC.NURSE ---
Pt alert and oriented. Pt pleasant and cooperative. Pt had complaints of pain at 5-10; Pt has ice in place and see EMAR for pain medications. Pt up walking in hallways multiple times during shift. Pt has had good intake and output during shift- see chart. ?
[2024-07-31 19:45] VITALS: BP 111/69; PULSE 82; TEMP 36.6; O2SAT 93
[2024-07-31] MEDS: OXYCODONE 5 MG TABLET PO (23:05)
[2024-07-31 23:40] VITALS: BP 112/64; PULSE 74; RESP 16; TEMP 36.1; O2SAT 93
[2024-08-01] MEDS: OXYCODONE 5 MG TABLET PO ×2 (03:58→10:33)
[2024-08-01 04:04] VITALS: BP 101/68; PULSE 78; O2SAT 93
[2024-08-01] MEDS: metroNIDAZOLE 500 MG/100 ML PIGGYBACK 100 MG IVPB (06:52)
[2024-08-01] MEDS: ONDANSETRON 2 MG/ML inj IVP (06:58)
[2024-08-01] MEDS: DOXYCYCLINE HYCLATE 100 MG in 0.9 % SODIUM CHLORIDE Mini-bag 100 ML IVPB (08:17)
[2024-08-01 08:22] VITALS: BP 137/75; PULSE 83; RESP 16; TEMP 36.7; O2SAT 92
[2024-08-01 09:16] LABS: Basophils Percent Auto 0.2 % (0.0-3.0); Eosinophils Percent Auto 0.2 % (0.0-7.0); Hematocrit 40.3 % (33.0-51.0); Hemoglobin* 13.7 gm/dL (12.0-16.0); Immature Granulocytes Pct Auto 0.1 %; Lymphocytes Percent Auto 31.2 % (20-44); Mean Corpuscular HGB Conc 34 gm/dL (32-36); Mean Corpuscular Hemoglobin 30 pg (26-34); Mean Corpuscular Volume 90 fL (80-100); Monocytes Percent Auto 4.6 % (0.0-11.0); Neutrophils Percent Auto 63.7 % (42.0-72.0); Platelet Count* 264 K/uL (140-440); RDW Coefficient of Variation % 13.1 % (11.5-15.5); White Blood Count* 12.59 K/uL (4.50-11.00)
[2024-08-01 09:19] LABS: Slide Review Reflex No
--- NOTE | 2024-08-01 09:20 | PM.GYNDS1 ---
DS: Providers Provider Time Seen by Provider: 09:20 Date Seen: 08/01/24 Date of admission: 07/31/24 11:12 Primary care physician: Lauryn Tate PA-C Admitting Clinician: Rosa Hannon MD Consults: 07/30/24 16:53 Consult to Physician [CONS] Routine Comment: Consulting Provider: Amy Jean-Baptiste Has provider been notified: Yes Attending Physician on discharge: Rosa Hannon MD Date of Discharge: 08/01/24 DS: Diagnosis Discharge Diagnosis (1) Pyosalpinx: Status: Acute (2) Pelvic inflammatory disease (PID): Status: Acute (3) Acute appendicitis: Status: Acute (4) Morbid obesity: Status: Acute DOOR FRAMER-Discharge Summary Hospital Course Hospital Course Narrative: Patient is a 24 year old admitted on 07/30/23 for acute appendicitis and subsequently diagnosed with PID/pyosalpinx. Indication for surgery: Concern for acute appendicitis. Intraoperative findings were notable: Normal appearing appendix. Erythematous and inflamed bilateral fallopian tube and uterus. Findings consistent with PID. She had an uncomplicated surgery. Postoperative course has been uneventful. She was on IV antibiotics for 24hr+ and transitioned to PO antibiotic to go home one. Vitals have been stable. She has remained afebrile for over 48hrs. WBC stable. Today, on postoperative day 2, she reports the pain is well controlled. She has been able to ambulate Without difficulty. She is tolerating regular diet. She is passing flatus. Frias catheter has been removed, and she is voiding without difficulty. She has significant nausea with doxycycline. Will eRx zofran to take as needed. Time Spent with Patient Time attestation: Total time spent providing and/or coordinating discharge services: DOOR FRAMER - Exam Physical Exam: Vital signs: Temp Pulse Resp BP Pulse Ox O2 Del Method O2 Flow Rate 98.1 F 83 16 137/75 92 Room Air 1 08/01/24 08:22 08/01/24 08:22 08/01/24 08:22 08/01/24 08:22 08/01/24 08:22 08/01/24 08:22 07/31/24 11:31 Narrative: General: No acute distress Psych: Alert and oriented x4, full affect HEENT: Normocephalic, atraumatic Heart: Regular rate and rhythm, no murmur rub or gallop Lungs: Clear to auscultation bilaterally Abdomen: Normoactive bowel sounds, soft, no tenderness, rebound, or guarding Incision(s): Appropriately tender to palpation. Clean, dry, and intact. No erythema, induration, or abnormal discharge/breakdown Skin: No lesions or rashes Lower extremities: No edema or erythema Pelvic exam: Deferred DOOR FRAMER - DS: Data Data Completed and Pending Labs on day of discharge: Labs from last 24 hours 08/01/24 09:10 WBC Pending RBC Pending Hgb Pending Hct Pending MCV Pending MCH Pending MCHC Pending Plt Count Pending Neut % (Auto) Pending Lymph % (Auto) Pending Johnston % (Auto) Pending Eos % (Auto) Pending Baso % (Auto) Pending Neut # (Auto) Pending Lymph # (Auto) Pending Johnston # (Auto) Pending Eos # (Auto) Pending Baso # (Auto) Pending Preliminary micro results at discharge 07/30/24 14:46 Aerobic Culture - Preliminary Abdominal Fluid NO GROWTH AFTER 24 HOURS Anaerobic Culture - Preliminary Culture in Progress Procedures Procedures: Procedures Operation Date: 07/30/24 14:00 Actual Procedure Side Surgeon p Laparoscopic Appendectomy Rosa Hannon MD Discharge Plan Discharge Disposition: Home, Self-Care Date of Admission: 07/31/24 11:12 Attending Provider on Discharge: Rosa Hannon Consulting Providers: Amy Jean-Baptiste Primary Care Provider: Lauryn Tate Condition: Stable Anticipated Discharge Date/Time: 08/01/24 09:21 Discharge Medications: New senna 8.6 mg capsule 8.6 mg PO DAILY PRN (Reason: constipation) Qty: 90 0RF oxycodone 5 mg tablet 5 mg PO Q6H PRN (Reason: pain) Qty: 20 0RF doxycycline hyclate 100 mg tablet 100 mg PO BID 14 Days Qty: 28 0RF metronidazole 500 mg tablet 500 mg PO BID 14 Days Qty: 28 0RF ondansetron 4 mg tablet,disintegrating 4 mg PO Q6H PRN (Reason: nausea and vomiting) Qty: 30 0RF Continued escitalopram oxalate 10 mg tablet 10 mg PO DAILY Discharge Orders: Discharge Order (Routine); Ordered 08/01/24 Ordered By: Rupali Gresham Patient Education: Doxycycline (By mouth), Metronidazole (By mouth), Oxycodone, Rapid Release (By mouth), Ondansetron (By mouth), Senna (By mouth), Pelvic Inflammatory Disease (DC), Post-Operative Instructions: Appendectomy Additional Instructions: You were prescribed a narcotic pain medication. In addition you may supplement with Tylenol and/or ibuprofen. Be sure to not exceed greater than 4 g of Tylenol in a 24 hour period. While on narcotic pain medicine please take stool softeners. A prescription of stool softeners has been sent to the pharmacy. Stop if having greater than 2 stools per day. You have Steri-Strips dressings in place, allow these to fall off on their own. Okay to shower starting tomorrow. Do not soak in a bath or swim for 2 weeks. Follow-up with Dr. Hannon in 2-3 weeks. Please call if you are experiencing severe pain, nausea, vomiting, difficulty urinating, fever or not had a bowel movement in 4 days after surgery. You were prescribed two antibiotics to take for 14 days (Doxycycline 100 mg twice a day and Metronidazole 500 mg twice a day). Please finish these as prescribed even if you feel better. These antibiotics can cause nausea. Thus, you've also been prescribed an antinausea medication to take as needed. While on antibiotics, you should consume food high in probiotics to optimize your gut health and decrease GI side effects. Doxycycline is known to cause sun sensitivity so apply sunscreen if you're anticipating sun exposure. Activity Level: No strenuous activity Activity Detail: Activity as tolerated. Avoid strenuous activity. No lifting greater than 20 lb for 2 weeks. Discharge Diet: Regular Follow Up Appointments: Rosa Hannon MD [Staff Physician] - 08/25/24 9:30 am [facility] Please bring insurance card to appointment.) Lauryn Tate PA-C [Primary Care Provider] - Forms: Work/School Release, [facility] Info Instructions
--- NOTE | 2024-08-01 11:05 | PC.NURSE ---
Pt alert and oriented. Pt up independently. Pt up walking in hallways. Pt has complaints of nausea this morning, addressed by MD. Pt's spouse at bedside. Pt had complaints of pain see EMAR. Pt's VS WNL. Pt's IV removed; catheter intact. Pt discharged home with spouse.
--- NOTE | 2024-08-03 12:44 | P.DS_ITS ---
DS: Providers Provider Date Seen: 08/03/24 Date of admission: 07/31/24 11:12 Primary care physician: Lauryn Tate PA-C Admitting Clinician: Rosa Hannon MD Consults: 07/30/24 16:53 Consult to Physician [CONS] Routine Comment: Consulting Provider: Amy Jean-Baptiste Has provider been notified: Yes Attending Physician on discharge: Rosa Hannon MD DS: Summary Hospital Course Hospital Course: Patient was taken to the operating room for laparoscopic appendectomy. Intraoperatively the appendix was normal. Incidental finding of bilateral erythema and induration of the fallopian tubes and uterus. Purulence within the fallopian tubes consistent with PID. Gynecology was consulted and followed the patient for the remainder of her hospital stay. An appendectomy was performed. Postoperatively patient remained on IV antibiotics until normalization of her WBC and afebrile. She was continued on antibiotics postoperatively per Gynecology, please see their discharge summary note. She was tolerating a regular diet, had return of bowel function, her pain was well controlled and she was ambulating without difficulty at the time of discharge. Will plan to follow up with the patient in 2 weeks. Time Spent with Patient Time attestation: Total time spent providing and/or coordinating discharge services: Exam Narrative: Exam Narrative: No exam performed before patient discharged. DS: Data Data Completed and Pending Labs on day of discharge: Preliminary micro results at discharge 07/30/24 14:46 Aerobic Culture - Preliminary Abdominal Fluid NO GROWTH AFTER 96 HOURS Discharge Plan Discharge Disposition: Home, Self-Care Date of Admission: 07/31/24 11:12 Attending Provider on Discharge: Rosa Hannon Consulting Providers: Amy Jean-Baptiste Primary Care Provider: Lauryn Tate Condition: Stable Anticipated Discharge Date/Time: 08/01/24 09:21 Discharge Medications: New senna 8.6 mg capsule 8.6 mg PO DAILY PRN (Reason: constipation) Qty: 90 0RF oxycodone 5 mg tablet 5 mg PO Q6H PRN (Reason: pain) Qty: 20 0RF doxycycline hyclate 100 mg tablet 100 mg PO BID 14 Days Qty: 28 0RF metronidazole 500 mg tablet 500 mg PO BID 14 Days Qty: 28 0RF ondansetron 4 mg tablet,disintegrating 4 mg PO Q6H PRN (Reason: nausea and vomiting) Qty: 30 0RF Continued escitalopram oxalate 10 mg tablet 10 mg PO DAILY Discharge Orders: Discharge Order (Routine); Ordered 08/01/24 Ordered By: Rupali Gresham Patient Education: Doxycycline (By mouth), Metronidazole (By mouth), Oxycodone, Rapid Release (By mouth), Ondansetron (By mouth), Senna (By mouth), Pelvic Inflammatory Disease (DC), Post-Operative Instructions: Appendectomy Additional Instructions: You were prescribed a narcotic pain medication. In addition you may supplement with Tylenol and/or ibuprofen. Be sure to not exceed greater than 4 g of Tylenol in a 24 hour period. While on narcotic pain medicine please take stool softeners. A prescription of stool softeners has been sent to the pharmacy. Stop if having greater than 2 stools per day. You have Steri-Strips dressings in place, allow these to fall off on their own. Okay to shower starting tomorrow. Do not soak in a bath or swim for 2 weeks. Follow-up with Dr. Hannon in 2-3 weeks. Please call if you are experiencing severe pain, nausea, vomiting, difficulty urinating, fever or not had a bowel movement in 4 days after surgery. You were prescribed two antibiotics to take for 14 days (Doxycycline 100 mg twice a day and Metronidazole 500 mg twice a day). Please finish these as prescribed even if you feel better. These antibiotics can cause nausea. Thus, you've also been prescribed an antinausea medication to take as needed. While on antibiotics, you should consume food high in probiotics to optimize your gut health and decrease GI side effects. Doxycycline is known to cause sun sensitivity so apply sunscreen if you're anticipating sun exposure. Activity Level: No strenuous activity Activity Detail: Activity as tolerated. Avoid strenuous activity. No lifting greater than 20 lb for 2 weeks. Discharge Diet: Regular Follow Up Appointments: Rosa Hannon MD [Staff Physician] - 08/25/24 9:30 am ([facility] for follow-up. Please bring insurance card to appointment.) Lauryn Tate PA-C [Primary Care Provider] - Forms: Work/School Release, [facility] Inst[facility]
== END 2024-08-01 11:12 | disposition home or self-care (01) | DRG 398 ==
LOC: ED 07-30 07:11 → OR 07-30 14:00 → MEDSURG 07-30 16:45 → OR 07-31 11:15 → MEDSURG 07-31 11:15
PROVIDERS: Admitting Provider Surgery; Emergency Provider Family Medicine; PCP Physician Assistant; Visit Provider Surgery
PROC: 0DTJ4ZZ Resection of Appendix, Percutaneous Endoscopic Approach (ICD-10-PCS; CPT 44970; principal; 2024-07-30 14:00)
DX: K35.80 Unspecified acute appendicitis (principal); N70.03 Acute salpingitis and oophoritis; N73.9 Female pelvic inflammatory disease, unspecified; F32.A Depression, unspecified; E66.01 Morbid (severe) obesity due to excess calories; Z68.38 Body mass index [BMI] 38.0-38.9, adult
CPT/HCPCS: 00840; 36415; 74177; 76830; 80048; 81001; 81025; 81513; 83605; 83735; 85025; 87070; 87075; 87076; 87086; 87205; 87210; 87481; 87491; 87591; 87631; 87661; 88304; 93976; 94761; 99285; A9270; J0330; J0665; J0696; J1171; J1836; J1885; J2250; J2405; J2543; J2704; J2710; J3010; J7030; J7120; Q9967

== ENCOUNTER 2024-08-03 11:21 | Emergency (ER) | payer OTHER, SELFPAY ==
--- OUTSIDE RECORDS SUMMARY | 2024-08-03 11:24 | XMS_ITS | Data Portability ---
Author Organization [facility] Address [address] [facility] [address] [place] [address] Care Team Providers Care Petroleum Refinery Operator Name Role Phone O NISREEN RODRIGUEZ Referring Provider MACHO SALES Primary Care Provider [phone] JEVON DENTAL Dentist [facility] Physical Therapis t Assessment Encounter Date Assessment [...] posture correction. A referral was sent to [facility]. I recommended that Екатерина discuss with her [...] None recorded. Referral physical therapist referral 2022 [facility], [address], [place], [address], 21:16:34 Procedures None recorded. Surgeries None recorded. Imaging XR, orthopanto gram 2022 023 tnasciment o1 [place], [facility] [address], [place], [address], 21:14:24 Medication Orders None recorded. Patient TargetsNo targets recorded. Patient Instructions Encounter Date Encounter Id Patient Instructions Last Modified By Organization Details Last Modified Time 05/13/2023 [id number] Self Care for TMD Not avai lable [...] stabil izatio n applia nce Not Available [place] [address], [place], [address], 05/06/2023 14:29:39 05/13/20 XR, ortho panto gram No observ ation record ed. Not Available 05/13 11:57:13 05/13/20 XR, ortho panto gram No observ ation record ed. Not Available 05/13 12:52:30 05/13/20 23 XR, ortho panto gram No observ ation record ed. [place] [address], [place], [address], 05/13/2023 14:51:49 Result Notes None recorded. 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) JENNY NASCJOSE Valero DDS,MS [address] [facility] [address], [place], [address], [place] [facility] 3 14:37:29 Myofascia l pain 443608126 Active 2022 masticato ry and cervical JENNY NASCJOSE Valero DDS,MS [address], [place], [address], [place] [facility] 3 14:37:41 Periodont al ligament strain 196401665 Active 2022 JENNY NASCIMENT Marylu DDS,MS [address] [facility] [address], [place], [address], [place] [facility] 3 14:19:48 Sleep related bruxism 229149678 Active 2022 JENNY NASCIMENT Marylu DDS,MS [address], [place], [address], [facility] 3 14:19:57 Obstructi ve sleep apnea of adult 236426214281 3 Active 2022 previous diagnosis JENNY NASCIMENT O, DDS,MS [address], [place], [address], [facility] 14:38:26 Chronic tension-t ype headache 452104245 Active 2022 JENNY NASCIMENT O, DDS,MS [address], [place], [address], [facility] 14:20:31 Episodic migraine 505562157970 106 Active 2022 JENNY NASCIMENT O, DDS,MS [address], [place], [address], [facility] 14:20:40 Migraine without aura 05123123 Active 2022 JENNY NASCIMENT O, DDS,MS [address], [place], [address], [facility] 14:20:54 Referred otalgia 58830932 Active 2022 JENNY NASCIMENT O, DDS,MS [address] [facility] [address], [place], [address], [facility] 14:25:29 Problem Notes None recorded. Procedures Surgical History Date Name Laterality Status Provider Name and Address Organization Details Recorded Time Orthopantogram completed Bridger Matthews [facility] 05/13/2023 12:59:56 Imaging Results Imaging Date Name Status LastModified by Organization Details LastModified Time 05/13/2023 XR, orthopantogram completed Inform ation not available 05/13/2023 11:57:13 05/13/2023 XR, orthopantogram completed Inform ation not available 05/13/2023 12:52:30 05/13/2023 XR, orthopantogram completed [email or web address], [place], [address], 05/13/2023 14:51:49 Procedure Notes None recorded. Medical [...] 3 160.02 cm 97 % 35.4 kg/m2 24441.4 7 g 84 /min 121 mm[Hg] 88 mm[Hg] Bridger Matthews [facility] 11:21:55 Social History Question Answer Notes LastModified by Organizat ion Details LastModified Time Tobacco Smoking Status Never Smoker Bridger Matthews [facility] 05/13/2023 11:21:03 [...] Or The Highest Degree You Have Received? 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 Bilateral temporomandibular joint pain 7228313705 2622714 M26.623 Bilateral TMJ arthralgia Bilateral temporomandibular joint articular disc disorder 9134682561 3815416 M26.633 Bilateral TMJ disc displaceme nt with reduction (left greater than right) Periodonta l ligament strain 465581704 K05.5 Sleep related bruxism 27 8846264 G47.63 Obstructiv e sleep apnea of adult 6254894668 103 G47.33 previous diagnosis Chronic te nsion-type headache 105825676 G44.229 Migraine without aura 56 575192 G43.009 Referred otalgia 1509482 8 H92.03 Health Concerns Section Related Observation LastModified by Organization Detai ls LastModified Time None Recorded Concern Status LastModified by Organization Details LastModified Time None Recorded Advance Directives Directive None Recorded Payers Encounter Date Sequence Insurance Name Policy Number Policy Servin Covered Member ID Servin Member ID Guarantor Name 05/13/2023 1 [place] [id number] Chip [id number] Екатерина Verde Notes Date [...] PRN ibuprofen and Tylenol). JENNY MCCRACKEN DDS,MS [address] [facility] [address], [place], [address], [facility] 05/14/2023 21:14:29 OBGyn Episode No OBEpisode recorded.
[2024-08-03 11:34] VITALS: BP 132/75; PULSE 78; RESP 18; TEMP 36.8; O2SAT 96; BMI 38.6
--- NOTE | 2024-08-03 12:01 | ED_ITS ---
HPI - General Adult General Date Seen: 08/03/24 Chief complaint: Post Op Complication Stated complaint: Post-Op Complaints - blood in stool Time Seen by Provider: 08/03/24 11:22 History of Present Illness HPI narrative: Patient is a 24-year-old young woman who presents for worsening pain after appendectomy on July 30. She says that she was discharged from the hospital on Friday, August 01. She says she had reasonably controlled pain initially but over the past day it has gotten worse. She says it is in her entire abdomen but worst in her right lower quadrant. She has been eating okay, no nausea or vomiting. No fevers or chills. No urinary symptoms. She does note that she developed vaginal bleeding initially spotting and now more like a period. She tells me that she has about a week and a half early for her menses, although review of her note from July 29 she had not had a period for 2 months, so they seem to be generally irregular. She also notes some bright red blood streaked on her stools in the past day. She has not had diarrhea although she says her stools are slightly loose. She denies constipation, rectal pain. She has been taking oxycodone for her pain. She has felt weak and shaky today. No chills. Review of her notes from her hospitalist day showed that she presented with lower abdominal pain, had a CT scan which showed maybe a little bit of stranding around the appendix but nothing particularly notable. Ultimately went to the operating room for laparoscopy and planned appendectomy regardless of findings. The appendix was normal, fallopian tubes were noted to be inflamed and she was diagnosed with PID, treated with IV antibiotics for 24 hours and then discharged home on doxycycline. She has been taking her antibiotics. Her test was negative on the . GC and chlamydia were both negative. Related Data Home Medications ?Medication ?Instructions ?Recorded ?Confirmed escitalopram oxalate 10 mg tablet 10 mg PO DAILY 11/18/23 07/29/24 Previous Rx's ?Medication ?Instructions ?Recorded sennosides 8.6 mg capsule (senna) 8.6 mg PO DAILY PRN constipation 07/30/24 #90 caps doxycycline hyclate 100 mg tablet 100 mg PO BID 14 days #28 tabs 08/01/24 metronidazole 500 mg tablet 500 mg PO BID 14 days #28 tabs 08/01/24 ondansetron 4 mg disintegrating 4 mg PO Q6H PRN nausea and 08/01/24 tablet vomiting #30 tabs oxycodone 5 mg tablet 5 mg PO Q6H PRN pain #20 tabs 08/01/24 Allergies Allergy/AdvReac Type Severity Reaction Status Date / Time topiramate Allergy Fainting Verified 07/30/24 01:42 Estrogens AdvReac Migraine Verified 07/30/24 01:42 Review of Systems Status of ROS: Reports: 10 or more systems reviewed and unremarkable except as noted in History and below [facility] Medical History Depression ?F32.A - Depression, unspecified (ICD-10) Asthma ?J45.909 - Unspecified asthma, uncomplicated (ICD-10) Surgical History No significant past surgical history Social History Narrative: Magdalene Smoking Status: Never smoker Do you use any of these nicotine containing products: None Second hand tobacco smoke exposure: No How often do you have a drink containing alcohol: never AUDIT-C Alcohol total score: 0 Non-prescribed substance use: denies use service: No Exam Narrative: Exam Narrative: Vital signs reviewed In general, alert, nontoxic young woman. Head: Normocephalic, atraumatic. Eyes: Sclera clear. Pupils equal and reactive. ENT: Mucous membranes moist. Neck: Supple without adenopathy. Heart: Regular rate and rhythm without murmur. Lungs: Clear. No increased work of breathing, crackles or wheezes. Abdomen: Soft, nondistended. Incisions are healing well. She has a rounded area of very mild erythema just below the umbilicus, abdomen is nontender to palpation. : There is bleeding noted from the cervical os. There is no purulence. There is no cervical motion tenderness, no adnexal masses or tenderness. Rectal: Stool is light brown in color, no visible blood. No hemorrhoids, fissure or other external abnormality. Extremities: Well perfused, pulses intact. No significant edema. Neurologic: Alert, conversant. Speech fluent, face symmetric. Moves all extremities equally. Skin: Warm, dry well perfused. Affect: Normal. Const: Vital Signs, click to edit/add: Vital Signs - 24 hr 08/03/24 11:34 08/03/24 13:03 08/03/24 13:04 Temperature 98.3 F Pulse Rate 62 61 Pulse Rate [Pulse Oximeter] 78 Respiratory Rate 18 18 Blood Pressure 114/52 L Blood Pressure [Ri ght Upper Arm] 132/75 Pulse Oximetry 96 94 93 Oxygen Delivery Me thod Room Air Course Course ED Course: Will start with labs, urinalysis. Will place an IV and give some Toradol and normal saline. Diagnostic considerations would include postoperative complications such as abscess, hematoma, seroma, worsening PID, UTI among others. Evaluation here showed a normal white blood cell count of 10, hemoglobin of 13.6. No left shift. Metabolic panel is normal. Lactate 0.5, CRP 1. Urinalysis showed 3+ blood and greater than 100 red cells which I think is related to menstrual bleeding. 2-5 white cells. Stool occult blood was negative. I discussed her care with Dr. Rainey who was on-call for surgery. She recommended CT scan to rule out possible postoperative abscess or hematoma. CT of the abdomen and pelvis with contrast was obtained. By my review there is no evidence of abscess or hematoma, no significant inflammatory changes. Final radiology report linked below, reviewed, no acute findings. Patient had follow-up appointment scheduled August 25, we are working to move that up for her. At this time I think it is reasonable to discharge home. She can continue current medications. If she worsens, has new symptoms such as fever, vomiting, severe uncontrolled pain, she can return to the emergency department at any time. Vital Signs Vital signs: Initial Vital Signs Temperature 98.3 F 08/03/24 11:34 Temperature Source Temporal Artery Scan 08/03/24 11:34 Pulse Rate 78 08/03/24 11:34 Respiratory Rate 18 08/03/24 11:34 Blood Pressure 132/75 08/03/24 11:34 Blood Pressure Mean 94 08/03/24 11:34 Pulse Oximetry 96 08/03/24 11:34 Oxygen Delivery Method Room Air 08/03/24 11:34 Vital Signs Temperature 98.3 F 08/03/24 11:34 Pulse Rate 78 08/03/24 11:34 Respiratory Rate 18 08/03/24 11:34 Blood Pressure 132/75 08/03/24 11:34 Pulse Oximetry 96 08/03/24 11:34 Oxygen Delivery Method Room Air 08/03/24 11:34 Temperature 98.3 F 08/03/24 11:34 Pulse Rate 61 08/03/24 13:04 Respiratory Rate 18 08/03/24 13:03 Blood Pressure 114/52 L 08/03/24 13:03 Pulse Oximetry 93 08/03/24 13:04 Oxygen Delivery Method Room Air 08/03/24 11:34 Medications Administered Medications: Discontinued Medications Generic Name Dose Route Start Last Admin Trade Name Isaiq PRN Reason Stop Dose Admin Sodium Chloride 500 mls @ 500 mls/hr 08/03/24 12:00 08/03/24 13:43 0.9 % Sodium Chloride 500 Ml IV 08/03/24 12:59 Infused .Q1H ONE Infusion Ketorolac Tromethamine 15 mg 08/03/24 12:00 08/03/24 12:23 Ketorolac 15 Mg/Ml Inj IVP 08/03/24 12:01 15 mg ONCE ONE Administration Medical Decision Making Lab Data Labs: Lab Results 08/03/24 08/03/24 08/03/24 Range/Units 12:15 12:35 12:50 WBC 10.07 (4.50-11.00) K/uL RBC 4.47 (4.00-5.20) m/uL Hgb 13.6 (12.0-16.0) gm/dL Hct 39.3 (33.0-51.0) % MCV 88 (80-100) fL MCH 30 (26-34) pg MCHC 35 (32-36) gm/dL RDW Coeff of Trae 12.4 (11.5-15.5) % Plt Count 314 (140-440) K/uL Neut % (Auto) 68.5 (42.0-72.0) % Lymph % (Auto) 24.8 (20-44) % Mineral % (Auto) 5.7 (0.0-11.0) % Eos % (Auto) 0.5 (0.0-7.0) % Baso % (Auto) 0.3 (0.0-3.0) % Neut # (Auto) 6.90 (1.7-7.0) K/uL Lymph # (Auto) 2.50 (0.90-2.90) K/uL Mineral # (Auto) 0.60 (0.00-0.90) K/UL Eos # (Auto) 0.05 (0.00-0.50) K/uL Baso # (Auto) 0.03 (0.00-0.30) K/uL Abs Immat Gran (auto) 0.02 (0.00-0.30) K/uL Imm/Tot Granulo (auto) 0.2 % Sodium 138 (135-149) mmol/L Potassium 3.8 (3.6-5.1) mmol/L Chloride 107 (96-114) mmol/L Carbon Dioxide 25 (20-32) mmol/L Anion Gap 6 L (7-15) mEq/L BUN 9 (5-24) mg/dL Creatinine 0.7 (0.5-1.5) mg/dL Estimated Creat Clear 108.86 Estimated GFR 125 ml/min Glucose 85 (60-115) mg/dL Lactate 0.5 (0.5-1.9) mmol/L Calcium 8.7 (8.4-10.6) mg/dL C-Reactive Protein 1.0 (0.5-1.0) mg/dL Urine Color Dark yellow (Yellow) Urine Appearance Cloudy A (Clear) Urine pH 7.0 (5.0-8.5) Ur Specific [place] 1.015 (1.000-1.030) Urine Protein Negative (Negative) Urine Glucose (UA) Negative (Negative) Urine Ketones Negative (Negative) Urine Blood 3+ A (Negative) Urine Nitrite Negative (Negative) Urine Bilirubin Negative (Negative) Urine Urobilinogen 0.2 (0.2-1.0) Ur Leukocyte Esterase Trace A (Negative) Urine RBC >100 A (0-2) Urine WBC 2-5 (0-5) Ur Squamous Epith Cells Moderate A (None-Few) Urine Bacteria Few A (None) Urine Mucus Few A (None) Stool Occult Blood Negative (Negative) Imaging Data CT scan - abdomen: Attestation: I have reviewed the pertinent imaging results. Radiologist's impression: Patient: Екатерина Verde MR#: [id number] : 2000 Acct:[id number] Loc: ED Service Date: 08/03/[address]: Ordering Physician: Lauryn Miller M.D. Date of Service: 08/03/24 Procedure(s): CT abdomen pelvis w con Accession Number(s): [id number] cc: Lauryn Miller M.D.; Lauryn Tate PA-C~ For Patients: As a result of the Cures Act, medical imaging exams and procedure reports are released immediately into your electronic medical record. You may view this report before your referring provider. If you have questions, please contact your health care provider. INDICATION: Right lower quadrant pain after appendectomy on July 30 TECHNIQUE: Axial images were obtained from the diaphragm to the pubic symphysis. Reformats were obtained in the coronal and sagittal plane. IV Contrast: 100 cc Isovue 370 Oral Contrast: None COMPARISON: Abdomen and pelvis CT 07/30/2024 FINDINGS: Lower chest: Unremarkable. Liver: Unremarkable. Normal in size and attenuation. No masses. Gallbladder and bile ducts: Unremarkable. No stones or inflammation. No biliary dilatation. Spleen: Unremarkable. Normal in size without mass. Pancreas: Unremarkable. No mass or inflammation. Adrenal glands: Unremarkable. No nodules. Kidneys: Unremarkable. No masses, stones, or hydronephrosis. Vasculature: No abdominal aortic aneurysm. Subcentimeter retroperitoneal lymph nodes. GI tract: Stomach is unremarkable. No dilated loops of large or small intestine. Suture line at the cecal tip. Mild soft tissue thickening at the level of the umbilicus, likely secondary to recent port placement. Pelvis: Trace free fluid within the deep pelvis. No adnexal lesions. Anteverted uterus. Bones: Unremarkable for age. IMPRESSION: 1. Status post interval appendectomy without evidence of abscess. 2. Skin thickening and fat stranding at the level of the umbilicus, likely secondary to recent surgical port. Please note that all CT scans at this facility use dose modulation, iterative reconstruction, and/or weight-based dosing when appropriate to reduce radiation dose to as low as reasonably achievable. Discharge Plan Discharge Clinical Impression: Post-operative pain Patient Disposition: Home, Self-Care Condition: Stable Instructions: Pain Management After Surgery (DC) Additional Instructions: All of your test today are reassuring. There is no evidence of a complication from your surgery or other abnormal findings in your abdomen or pelvis at this time. Your labs are reassuring as well. Dr. Rainey recommended that we have you follow-up a little earlier with surgery clinic to make sure that you are improving. Return to the ER at any time for severe uncontrolled pain, new symptoms such as fevers, vomiting, or other worsening. Continue current medications. Prescriptions: No Action escitalopram oxalate 10 mg tablet 10 mg PO DAILY senna 8.6 mg capsule 8.6 mg PO DAILY PRN (Reason: constipation) Qty: 90 0RF oxycodone 5 mg tablet 5 mg PO Q6H PRN (Reason: pain) Qty: 20 0RF doxycycline hyclate 100 mg tablet 100 mg PO BID 14 Days Qty: 28 0RF metronidazole 500 mg tablet 500 mg PO BID 14 Days Qty: 28 0RF ondansetron 4 mg tablet,disintegrating 4 mg PO Q6H PRN (Reason: nausea and vomiting) Qty: 30 0RF Follow Up/Referrals: Lauryn Tate PA-C [Primary Care Provider] - Stand Alone Forms: [facility] Info Instructions
[2024-08-03] MEDS: 0.9 % SODIUM CHLORIDE 500 ML 500 ML IV (12:17)
[2024-08-03] MEDS: KETOROLAC 15 MG/ML inj IVP (12:23)
--- OUTSIDE RECORDS SUMMARY | 2024-08-03 12:23 | XMS_ITS | Clinical Summary ---
Author Organization [employer] [facility] Address [place], [place] [address] Care Team Providers Care Freight Rate Specialist Name Role Phone Lauryn Tate Primary Care Provider [phone] Allergies Active Allergy Reactions Criticality Noted Date [...] Encounters Date Type Department Care Team Description 07/31/2024 Lab Requisition [facility] [phone] Unknown, Doctor 07/30/2024 Orders Only [facility] Scanner 1 scan: (1-Ord) [facility], LAPAROSCOPIC APPENDECTOMY, 07/30/2024 07/30/2024 Orders Only [facility] Scanner 1 scan: (1-Ord) [facility], US PELVIC TRANSVAGINAL, 07/30/2024 07/30/2024 Orders Only [facility] Scanner 1 scan: (1-Ord) [facility], CT ABDOMEN PELVIS W CON, 07/30/2024 from Last 3 Months Immunizations Name Administration [...] on file Legal Sex Female 5:25 AM ASSOCIATE SOFTWARE DEVELOPER Gender Identity Not on file Sexual Orientation [...] Care Team (Late st Contact Info) Description 08/25/2024 9:30 AM ASSOCIATE SOFTWARE DEVELOPER Office Visit [facility] [address] [place] [address] Rosa Hannon MD [address] [place] [address] Health Maintenance Due Date Last Done Comments [...] series for age 9-26 Completed 09/19/2017, 04/21 Procedures Procedure Name Priority Date/Time Associated Diagnosis Comments SCAN-ULTRASOUND REPORT 12:00 AM ASSOCIATE SOFTWARE DEVELOPER SCAN-CT INTERPRETATION 12:00 AM ASSOCIATE SOFTWARE DEVELOPER SCAN-OPERATIVE/PROCEDUR E REPORT 07/30/2024 12:00 AM ASSOCIATE SOFTWARE DEVELOPER from Last 3 Months Results * SCAN-OPERATIVE/PROCEDURE REPORT (07/30/2024 12:00 AM ASSOCIATE SOFTWARE DEVELOPER) us Scanner OTHER Final Result * SCAN-ULTRASOUND REPORT (07/30/2024 12:00 AM ASSOCIATE SOFTWARE DEVELOPER) Anatomical Region Laterality Modality Other us Scanner OTHER Final Result * SCAN-CT INTERPRETATION (07/30/2024 12:00 AM ASSOCIATE SOFTWARE DEVELOPER) Anatomical Region Laterality Modality Other us Scanner OTHER Final Result from Last 3 Months Care Teams Freight Rate Specialist Relationship Specialty Start Date End Date Lauryn Tate PA [address] [place] [address] PCP - General Physician Income Auditor 11/25/23
--- OUTSIDE RECORDS SUMMARY | 2024-08-03 12:23 | XMS_ITS | Clinical Summary ---
Author Organization [facility] Address [address] [place] [address] Care Team Providers Care Credit Specialist Name Role Phone Elsewhere, Pcp Primary Care Provider Unavailabl e Source Comments Patient records contain information from all sites at [facility]. For routine questions regarding patient records, call [phone] during business hours, M-F 8:00 AM - 5:00 PM Central Time. Record requests for emergency care only can be directed to [phone] at any time.[facility] Allergies Active Allergy Reactions Criticality Noted [...] on file Legal Sex Female 2:10 PM BAG WASHER Gender Identity Not on file Sexual Orientation Not on file Last Filed Vital Signs Vital Sign Reading Time Taken Comments Blood Pressure 119/61 07/09/2023 9:00 PM BAG WASHER Pulse 76 07/09/2023 9:00 PM BAG WASHER Temperature 36.3 C (97.3 F) 07/09/2023 6:18 PM BAG WASHER Respiratory Rate 18 07/09/2023 9:00 PM BAG WASHER Oxygen Saturation 99% 07/09/2023 9:00 PM BAG WASHER Inhaled Oxygen Concentration - - Weight 93.6 kg (206 lb 5.6 oz) 07/09/2023 6:15 P M BAG WASHER Height 160.5 cm (5' 3.19) 07/29/2019 7:53 [...] 04/21/2015 Meningococcal Vaccine Completed 04/03/2020, 015 Insurance [facility] Care Teams Credit Specialist Relationship Specialty Start Date End Date Elsewhere, Pcp PCP - General Hot End Operator 07/29/19
--- OUTSIDE RECORDS SUMMARY | 2024-08-03 12:24 | XMS_ITS | Referral Summary ---
Author Organization [facility] Address [address] [place] [address] Care Team Providers Care Full Stack Net Developer Name Role Phone Elsewhere, Pcp Primary Care Provider Unavailabl e Source Comments Patient records contain information from all sites at [facility]. For routine questions regarding patient records, call [phone] during business hours, M-F 8:00 AM - 5:00 PM Central Time. Record requests for emergency care only can be directed to [phone] at any time.[facility] Allergies Active Allergy Reactions Criticality Noted Date [...] on file Legal Sex Female 2:10 PM MARKET NEWS REPORTER Gender Identity Not on file Sexual Orientation Not on file Last Filed Vital Signs Vital Sign Reading Time Taken Comments Blood Pressure 119/61 07/09/2023 9:00 PM MARKET NEWS REPORTER Pulse 76 07/09/2023 9:00 PM MARKET NEWS REPORTER Temperature 36.3 C (97.3 F) 07/09/2023 6:18 PM MARKET NEWS REPORTER Respiratory Rate 18 07/09/2023 9:00 PM MARKET NEWS REPORTER Oxygen Saturation 99% 07/09/2023 9:00 PM MARKET NEWS REPORTER Inhaled Oxygen Concentration - - Weight 93.6 kg (206 lb 5.6 oz) 07/09/2023 6:15 P M MARKET NEWS REPORTER Height 160.5 cm (5' 3.19) 07/29/2019 7:53 AM CS T Body Mass Index - - Plan of Treatment Not on file Insurance [facility] Care Teams Full Stack Net Developer Relationship Specialty Start Date End Date Elsewhere, Pcp PCP - General Rn Surgery Icu 07/29/19
--- OUTSIDE RECORDS SUMMARY | 2024-08-03 12:24 | XMS_ITS ---
Author Organization [facility] Address [address] [place] [address] Care Team Providers Care Camera Tuning Engineer Name Role Phone Unavailable Unavailable Unavailable Surgery Details Not on file Complications Check Surgery Details section. Procedure Estimated Blood Loss Check Surgery Details section. Procedure Findings Check Surgery Details section. Procedure Specimens Taken Check Surgery Details section.
[2024-08-03 12:43] LABS: Lactate Sepsis w/Reflex* 0.5 mmol/L (0.5-1.9)
[2024-08-03 12:44] LABS: Basophils Absolute Auto 0.03 K/uL (0.00-0.30); Basophils Percent Auto 0.3 % (0.0-3.0); Eosinophils Absolute Auto 0.05 K/uL (0.00-0.50); Eosinophils Percent Auto 0.5 % (0.0-7.0); Hematocrit 39.3 % (33.0-51.0); Hemoglobin* 13.6 gm/dL (12.0-16.0); Immature Granulocytes Abs Auto 0.02 K/uL (0.00-0.30); Immature Granulocytes Pct Auto 0.2 %; Lymphocytes Percent Auto 24.8 % (20-44); Mean Corpuscular HGB Conc 35 gm/dL (32-36); Mean Corpuscular Hemoglobin 30 pg (26-34); Mean Corpuscular Volume 88 fL (80-100); Monocytes Percent Auto 5.7 % (0.0-11.0); Neutrophils Percent Auto 68.5 % (42.0-72.0); Platelet Count* 314 K/uL (140-440); RDW Coefficient of Variation % 12.4 % (11.5-15.5); Red Blood Count 4.47 m/uL (4.00-5.20); White Blood Count* 10.07 K/uL (4.50-11.00)
[2024-08-03 12:45] LABS: Fecal Occult Blood* Negative (Negative)
[2024-08-03 12:57] LABS: Slide Review Reflex No
[2024-08-03 13:03] VITALS: BP 114/52; PULSE 62; RESP 18; O2SAT 94
[2024-08-03 13:03] LABS: Appearance Urine Cloudy (Clear); Bilirubin Urine Negative (Negative); Blood Urine 3+ (Negative); Color Urine Dark yellow (Yellow); Glucose Urine Negative (Negative); Ketones Urine Negative (Negative); Leukocyte Esterase Urine Trace (Negative); Nitrite Urine Negative (Negative); Protein Urine Negative (Negative); Specific Gravity Urine 1.015 (1.000-1.030); Urobilinogen Urine 0.2 (0.2-1.0)
[2024-08-03 13:04] VITALS: PULSE 61; O2SAT 93
[2024-08-03 13:05] LABS: Chloride* 107 mmol/L (96-114); Potassium* 3.8 mmol/L (3.6-5.1); Sodium* 138 mmol/L (135-149)
[2024-08-03 13:08] LABS: Creatinine* 0.7 mg/dL (0.5-1.5); Est. Creatinine Clearance* 108.86; Estimated Glomerular Filt Rate 125 ml/min
[2024-08-03 13:09] LABS: Anion Gap 6 mEq/L (7-15); Blood Urea Nitrogen* 9 mg/dL (5-24); Calcium* 8.7 mg/dL (8.4-10.6); Carbon Dioxide* 25 mmol/L (20-32); Glucose* 85 mg/dL (60-115)
[2024-08-03 13:31] LABS: Bacteria Urine Few; Mucus Urine Few; RBC Urine >100 (0-2); Squamous Epithelial Cell Urine Moderate (None-Few)
--- NOTE | 2024-08-03 13:52 | CRLHL7_ITS ---
For Patients: As a result of the Century Cures Act, medical imaging exams and procedure reports are released immediately into your electronic medical record. You may view this report before your referring provider. If you have questions, please contact your health care provider. INDICATION: Right lower quadrant pain after appendectomy on July 30 TECHNIQUE: Axial images were obtained from the diaphragm to the pubic symphysis. Reformats were obtained in the coronal and sagittal plane. IV Contrast: 100 cc Isovue 370 Oral Contrast: None COMPARISON: Abdomen and pelvis CT 07/30/2024 FINDINGS: Lower chest: Unremarkable. Liver: Unremarkable. Normal in size and attenuation. No masses. Gallbladder and bile ducts: Unremarkable. No stones or inflammation. No biliary dilatation. Spleen: Unremarkable. Normal in size without mass. Pancreas: Unremarkable. No mass or inflammation. Adrenal glands: Unremarkable. No nodules. Kidneys: Unremarkable. No masses, stones, or hydronephrosis. Vasculature: No abdominal aortic aneurysm. Subcentimeter retroperitoneal lymph nodes. GI tract: Stomach is unremarkable. No dilated loops of large or small intestine. Suture line at the cecal tip. Mild soft tissue thickening at the level of the umbilicus, likely secondary to recent port placement. Pelvis: Trace free fluid within the deep pelvis. No adnexal lesions. Anteverted uterus. Bones: Unremarkable for age. IMPRESSION: 1. Status post interval appendectomy without evidence of abscess. 2. Skin thickening and fat stranding at the level of the umbilicus, likely secondary to recent surgical port. Please note that all CT scans at this facility use dose modulation, iterative reconstruction, and/or weight-based dosing when appropriate to reduce radiation dose to as low as reasonably achievable. Dictated by Toñito Patel MD @ 08/03/2024 2:59:03 PM (Electronically Signed)
== END 2024-08-03 15:51 | disposition home or self-care (01) ==
PROVIDERS: Emergency Provider Emergency Medicine; PCP Physician Assistant
DX: G89.18 Other acute postprocedural pain (principal)
CPT/HCPCS: 36415; 74177; 80048; 81001; 82270; 83605; 85025; 86140; 87086; 96361; 96374; 99284; 99285; J1885; J7030; Q9967

== ENCOUNTER 2024-08-10 11:45 | Outpatient (CLI) | payer OTHER, SELFPAY ==
[2024-08-10 12:41] LABS: Clue Cells No Clue Cells Seen (None Seen); Trichomonas No Trichomonas Seen (None Seen); Yeast No Yeast Seen (None Seen)
[2024-08-10 15:36] LABS: Chlamydia DNA Amplified* NOT DETECTED (No Detected); GC DNA Amplified* NOT DETECTED (No Detected)
== END 2024-08-10 11:46 | disposition home or self-care (01) ==
PROVIDERS: PCP Physician Assistant; Visit Provider Obstetrics & Gynecology
DX: R10.2 Pelvic and perineal pain (principal); R82.90 Unspecified abnormal findings in urine; Z11.3 Encounter for screening for infections with a predominantly sexual mode of transmission
CPT/HCPCS: 87086; 87210; 87491; 87591

== ENCOUNTER 2024-08-21 14:50 | Emergency (ER) | payer OTHER, SELFPAY ==
--- OUTSIDE RECORDS SUMMARY | 2024-08-21 14:53 | XMS_ITS | Clinical Summary ---
Author Organization [facility] Address [address] [place] [address] Care Team Providers Care Marine Electrician Apprentice Name Role Phone Elsewhere, Pcp Primary Care Provider Unavailabl e Source Comments Patient records contain information from all sites at [facility]. For routine questions regarding patient records, call [phone] during business hours, M-F 8:00 AM - 5:00 PM Central Time. Record requests for emergency care only can be directed to [phone] at any time.[facility] [...] Active Problems No known active problems Immunizations Immunization Administration Dates Next Due DTaP (Infanrix, Tripedia) [...] on file Legal Sex Female 2:10 PM CUT ROLL MACHINE OFFBEARER Gender Identity Not on file Sexual Orientation Not on file Last Filed Vital Signs Vital Sign Reading Time Taken Comments Blood Pressure 119/61 07/09/2023 9:00 PM CUT ROLL MACHINE OFFBEARER Pulse 76 07/09/2023 9:00 PM CUT ROLL MACHINE OFFBEARER Temperature 36.3 C (97.3 F) 07/09/2023 6:18 PM CUT ROLL MACHINE OFFBEARER Respiratory Rate 18 07/09/2023 9:00 PM CUT ROLL MACHINE OFFBEARER Oxygen Saturation 99% 07/09/2023 9:00 PM CUT ROLL MACHINE OFFBEARER Inhaled Oxygen Concentration - - Weight 93.6 kg (206 lb 5.6 oz) 07/09/2023 6:15 P M CUT ROLL MACHINE OFFBEARER Height 160.5 cm (5' 3.19) 07/29/2019 7:53 AM CS T Body Mass Index - - Plan of Treatment Health Maintenance Due Date Last Done Comments Cervical/Vaginal Cancer Screening 2002 Chlamydia and Gonorrhea Screening 2002 HIV Screening 2002 Hepatitis C Screening 2002 COVID-19 Vaccine ( season) 2024 08/07/2022 Influenza Vaccine (#1) 2024 04/30/2013, 2010 Depression Screening (Annual PHQ-2) 07/21/2024 DTaP,Tdap,and Td Vaccines (7 - Td or Tdap) 10/18/2024 10/18/2014, 04/12/2008, 04/06/2007, Additional history exists Pneumococcal vaccine (0-49 years) Aged Out 08/05/2003, 01/18/2003, 2002, Additional history exists No longer eligible based on patient's age to complete this topic Hepatitis B Vaccines Completed 04/06/2007, 2002, 2002 IPV Vaccines Completed 04/12/2008, 03/21, 01/18/2003, Additional history exists HPV Vaccines Completed 09/19/2017, 08/2014, 04/21/2015 Meningococcal Vaccine Completed 04/03/2020, [address] [facility] Care Teams Marine Electrician Apprentice Relationship Specialty Start Date End Date Elsewhere, Pcp PCP - General Flatwork Finisher Hand 07/29/19
--- OUTSIDE RECORDS SUMMARY | 2024-08-21 14:53 | XMS_ITS | Data Portability ---
Author Organization [place] [facility] Address [address] [place] [address] Care Team Providers Care Pallet Assembler Name Role Phone O NISREEN RODRIGUEZ Referring Provider [phone] MACHO SALES Primary Care Provider JEVON DENTAL Dentist [facility] Physical Therapis t Assessment Encounter Date Assessment [...] posture correction. A referral was sent to [place]. I recommended that Екатерина discuss with her [...] None recorded. Referral physical therapist referral 2022 [facility], [address], [place], [address], 21:16:34 Procedures None recorded. Surgeries None recorded. Imaging XR, orthopanto gram 2022 023 tnasciment o1 [place], [facility] [address], [place], [address], 21:14:24 Medication Orders None recorded. Patient TargetsNo targets recorded. Patient Instructions Encounter Date Encounter Id Patient Instructions Last Modified By Organization Details Last Modified Time 05/13/2023 [id number] Self Care for TMD Not avai lable [...] stabil izatio n applia nce Not Available [place] [address], [place], [address], 05/06/2023 14:29:39 05/13/20 XR, ortho panto gram No observ ation record ed. Not Available 05/13 11:57:13 05/13/20 XR, ortho panto gram No observ ation record ed. Not Available 05/13 12:52:30 05/13/20 23 XR, ortho panto gram No observ ation record ed. [place] [address], [place], [address], 05/13/2023 14:51:49 Result Notes None recorded. 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) JENNY NASCJOSE Valero DDS,MS [address] [facility] [address], [place], [address], [place] [facility] 3 14:37:29 Myofascia l pain 666036749 Active 2022 masticato ry and cervical JENNY NASCJOSE Valero DDS,MS [address], [place], [address], [place] [facility] 3 14:37:41 Periodont al ligament strain 089134039 Active 2022 JENNY NASCIMENT Marylu DDS,MS [address], [place], [address], [place] [facility] 3 14:19:48 Sleep related bruxism 852687155 Active 2022 JENNY NASCIMENT Marylu DDS,MS [address], [place], [address], [facility] 3 14:19:57 Obstructi ve sleep apnea of adult 797995278183 3 Active 2022 previous diagnosis JENNY NASCIMENT O, DDS,MS [address], [place], [address], [facility] 14:38:26 Chronic tension-t ype headache 137769043 Active 2022 JENNY NASCIMENT O, DDS,MS [address], [place], [address], [facility] 14:20:31 Episodic migraine 507857328467 106 Active 2022 JENNY NASCIMENT O, DDS,MS [address], [place], [address], [facility] 14:20:40 Migraine without aura 39725266 Active 2022 JENNY NASCIMENT O, DDS,MS [address], [place], [address], [facility] 14:20:54 Referred otalgia 35879886 Active 2022 JENNY NASCIMENT O, DDS,MS [address], [place], [address], [facility] 14:25:29 Problem Notes None recorded. Procedures Surgical History Date Name Laterality Status Provider Name and Address Organization Details Recorded Time Orthopantogram completed Bridger Matthews [facility] 05/13/2023 12:59:56 Imaging Results Imaging Date Name Status LastModified by Organization Details LastModified Time 05/13/2023 XR, orthopantogram completed Inform ation not available 05/13/2023 11:57:13 05/13/2023 XR, orthopantogram completed Inform ation not available 05/13/2023 12:52:30 05/13/2023 XR, orthopantogram completed [email or web address] [place] [address], [place], [address], 05/13/2023 14:51:49 Procedure Notes None recorded. Medical [...] Not Available Vitals Date Recorded Body height Provider Name an d Address Organization Details Last Updated DateTime 05/13/2023 160.02 cm Bridger Matthews [facility] 05/13/2023 11:20:19 Date Recorded Body mass index (BMI) Percentile per age and sex Body mass index (BMI) Body weight Provider Name and Address Organization Details Last Updated DateTime 05/13/2023 97 % 35.4 kg/m2 60884.47 g Bridger Matthews [facility] 05/13/2023 11:20:38 Date Recorded Heart rate Provider Name an d Address Organization Details Last Updated DateTime 05/13/2023 84 /min Bridger Matthews [facility] 05/13/2023 11:22:05 Date Recorded Systolic blood pressure Diastolic blood pressure Provider Name and Address Organization Details Last Updated DateTime 05/13/2023 121 mm[Hg] 88 mm[Hg] Bridger Matthews [facility] 05/13/2023 11:21:55 Social History Question Answer Notes LastModified by Organizat ion Details LastModified Time Tobacco Smoking Status Never Smoker Bridger villeda [facility] 05/13/2023 [...] Or The Highest Degree You Have Received? 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 [id number] Information not available 05/13/2023 Do You Use [...] stress disorder (PTSD) Y Head Trauma/Injury Y Migraines Y Depression Y Asthma Y Headaches Y Obstructive Sleep Apnea Y Gynecological HistoryNo gynecological history recorded. Obstetrics History GPAL:G 0 P 0 0 0 0 Past Encounters Encounter ID Performer Location Encounter Start Date Encounter Closed Date Diagnosis/Indication Diagnosis SNOMED-CT Code Diagnosis ICD10 Code Diagnosis Note [id number] JENNY MCCRACKEN DDS,MS [place] [address] [place] [address] 05/13/2023 11:15:50 05/13/2023 12:50:10 Myofascial pain 615640264 M79.11 M79.12 sand caster y and cervical Bilateral temporomandibular joint pain 7234957750 2223305 M26.623 Bilateral TMJ arthralgia Bilateral temporomandibular joint articular disc disorder 4571987785 6167401 M26.633 Bilateral TMJ disc displaceme nt with reduction (left greater than right) Periodonta l ligament strain 959792885 K05.5 Sleep related bruxism 27 4993885 G47.63 Obstructiv e sleep apnea of adult 4826371109 103 G47.33 previous diagnosis Chronic te nsion-type headache 070142193 G44.229 Migraine without aura 56 900217 G43.009 Referred otalgia 4779382 8 H92.03 Health Concerns Section Related Observation LastModified by Organization Detai ls LastModified Time None Recorded Concern Status LastModified by Organization Details LastModified Time None Recorded Advance Directives Directive None Recorded Payers Encounter Date Sequence Insurance Name Policy Number Policy Servin Covered Member ID Servin Member ID Guarantor Name 05/13/2023 1 [place] [id number] [place] [id number] Екатерина [place] Notes Date Note Type [...] PRN ibuprofen and Tylenol). JENNY MCCRACKEN DDS,MS [address], [place], [address], [place] [facility] 05/14/2023 21:14:29 OBGyn Episode No OBEpisode recorded.
--- OUTSIDE RECORDS SUMMARY | 2024-08-21 14:53 | XMS_ITS | Clinical Summary ---
Author Organization [facility] Address [place], [place] [address] Care Team Providers Care Ductfixing Plumber Name Role Phone Lauryn Tate Primary Care Provider [phone]- [phone] Allergies Active Allergy Reactions Criticality Noted Date [...] FOR MUSCLE SPASM 30 Tablet 4 Active metoclopramide (Reglan) 5 mg tabletIndications: Nausea Take 1 Tablet (5 mg) by mouth every 6 hours if needed for Nausea/Vomiti ng. 20 Tablet 5 Active Active Problems Problem Noted Date Diagnosed [...] Encounters Date Type Department Care Team Description 08/04/2024 11:00 AM FISH CLEANER Office Visit [facility] [address] [place] [address] Rosa Hannon MD Post-op (Appendix removed 07/30/24- ER yesterday morning- today feeling nauseated, nausea medication not working, abdominal pain rating 8/10 currently taking tylenol, ibuprofen and oxycodone) 08/04/2024 Travel 08/03/2024 Orders Only [facility] HIM SERVICES Scanner 1 scan: (1-Ord) [facility], CT ABD PELVIS W CONTRAST, 08/03/2024 07/31/2024 Lab Requisition [facility] CENTRAL LAB [phone] Unknown, Doctor 07/30/2024 Orders Only [facility] SERVICES Scanner 1 scan: (1-Ord) [facility], LAPAROSCOPIC APPENDECTOMY, 07/30/2024 07/30/2024 Orders Only [facility] SERVICES Scanner 1 scan: (1-Ord) [facility], US PELVIC TRANSVAGINAL, 07/30/2024 07/30/2024 Orders Only [facility] SERVICES Scanner 1 scan: (1-Ord) [facility], CT ABDOMEN PELVIS W CON, 07/30/2024 from [...] Information Value Date Recorded Sex Assigned at Female 08/03/2024 3:57 PM FISH CLEANER Legal Sex Female 5:25 AM FISH CLEANER Gender Identity Female 08/03/2024 3:57 PM FISH CLEANER Sexual Orientation Not on file Obstetrics History Para Term AB IAB SAB Ectopic Multiple Livin g Live Births 0 0 0 0 0 0 0 0 0 0 0 Last Filed Vital Signs Vital Sign Reading Time Taken Comments Blood Pressure 135/87 08/04/2024 11:14 AM FISH CLEANER Pulse 87 08/04/2024 11:14 AM FISH CLEANER Temperature 36.8 C (98.3 F) 12/19/2022 1:16 AM CDT Respiratory Rate 20 12/19/2022 1:16 AM CDT Oxygen Saturation 99% 08/04/2024 11:14 AM FISH CLEANER Inhaled Oxygen Concentration - - Weight 105.2 [...] Procedure Name Priority Date/Time Associated Diagnosis Comments SCAN-CT INTERPRETATION 12:00 AM FISH CLEANER LAB TRACKING EVENT Routine 07/30/2024 2: 58 PM FISH CLEANER PATH TISSUE EXAM Routine 07/30/2024 2:58 PM FISH CLEANER SCAN-ULTRASOUND REPORT 12:00 AM FISH CLEANER SCAN-CT INTERPRETATION 12:00 AM FISH CLEANER SCAN-OPERATIVE/PROCEDUR E REPORT 07/30/2024 12:00 AM FISH CLEANER from Last 3 Months Results * SCAN-CT INTERPRETATION (08/03/2024 12:00 AM FISH CLEANER) Only the most recent of2 resultswithin the time period is included. Anatomical Region Laterality Modality Other us Scanner OTHER Final Result * LAB TRACKING EVENT (07/30/2024 2:58 PM FISH CLEANER) Other (Other) Client Collect / Unknown 07/30/2024 2:58 PM FISH CLEANER 08/01/2024 9:40 AM FISH CLEANER us Doctor Unknown LAB BILL ONLY Final Result [facility]AL LABORATORY [address] [place] [address], [place] * PATH TISSUE EXAM (07/30/2024 2:58 PM FISH CLEANER) Case Report Pathology Report [id number]: [id number] Authorizing Provider: Unknown, Doctor Collected: 07/30/2024 7173 Ordering Location: [facility] Received: 07/31/2024 1237 Pathologist: Alvaro Cronin MD Specimen: Appendix 08/04/2024 11:31 AM [facility]AL LABORAT[facility] Final Diagnosis A) APPENDIX, APPENDECTOMY: 1. Acute appendiceal inflammation, suggestive of early acute appendicitis (see comment) 2. Negative for perforation 3. Negative for neoplasm 08/04/2024 11:31 AM [facility] Comment A) There is acute inflammation of the appendix that is restricted to the mucosa without transmural extension as would be expected for classic acute appendicitis. This most likely represents early, evolving acute appendicitis. 08/04/2024 11:31 AM [facility] Clinical Information Ms. Verde is a 24 y.o. with a preoperative diagnosis of appendicitis. 08/04/2024 11:31 AM [facility] Gross Description A) Received in formalin, labeled with the patient's name and Appendix, is a 8.9 cm long appendix with an average diameter of 0.7 cm, with attached mesoappendix. The serosa is purple-krishnamurthy with exudate. The wall averages 0.2 cm. The mucosa is krishnamurthy-pereira. A discrete mass, fecalith or perforation is not identified. Fishing Tool Technician Oil Well sections including the en face margin (inked black) are submitted in one cassette. EVM 08/02/2024 08/04/2024 11:31 AM [facility] Microscopic Description The final diagnosis is based on microscopic examination of appropriate sections of all specimens. 08/04/2024 11:31 AM [facility] Additional Information Interpreted at [facility] [employer] [facility], Central Laboratory - [address], [place] [address] 08/04/2024 11:31 AM [facility] Other APPENDIX SPECIMEN / Unknown 07/30/2024 2:58 PM FISH CLEANER 07/31/2024 12:38 PM FISH CLEANER us Doctor Unknown PATHOLOGY/CYTOLOGY Final Result [facility] LABORATORY [address] [place] [address], [place] * SCAN-OPERATIVE/PROCEDURE REPORT (07/30/2024 12:00 AM FISH CLEANER) us Scanner OTHER Final Result * SCAN-ULTRASOUND REPORT (07/30/2024 12:00 AM FISH CLEANER) Anatomical Region Laterality Modality Other us Scanner OTHER Final Result from Last 3 Months Insurance [facility] Care Teams Ductfixing Plumber Relationship Specialty Start Date End Date Lauryn Tate PA [address] [place] [address] PCP - General Physician Mandrel Cleaner 11/25/23
--- OUTSIDE RECORDS SUMMARY | 2024-08-21 14:53 | XMS_ITS | Clinical Summary ---
Author Organization [facility] Address [address] , [address] [place] [address] Phone Care Team Providers Care Picture Booker Name Role Phone [facility], Syd[facility]jeremiah Unavailable Unava ilable Conditions or Problems Problem Name Problem Code Onset Date Status Entry Date Provider Comment Standard Description Annotate Migraine NOS, not intractable 389087869 (SNOMED CT) Active Erin Tony DNP,DIVER TENDER,CN P Migraine without aura, not refractory Eye and vision exam, routine, abnormal findings - high cup-to-disc ratio 063851459 (SNOMED CT) 03/10 Active 03/10 Jaswant Cervantes MD Procedure carried out on subject Obstructive sleep apnea 76773698 (SNOMED CT) 03/10 Active 03/10 Jaswant Cervantes MD Obstructive sleep apnea syndrome Anxiety associated with depression 043970252 (SNOMED CT) 03/10 Active 03/10 Jaswant Cervantes MD Mixed anxiety and depressive disorder Loss of consciousness 359241422 (SNOMED CT) 03/10 Active 03/10 Jaswant Cervantes MD Loss of consciousness Tension headache 700653999 (SNOMED CT) 03/10 Active 03/10 Jaswant Cervantes MD Tension-type headache Basilar migraine 89901974 (SNOMED CT) 03/10 Active 03/10 Jaswant Cervantes MD Basilar migraine Medications Medication Instructions Start Date Stop Date Generic Name NDC Provider NORETHINDRONE 0.35 MG TABS Take 1 tablet by mouth once a day 03/10 norethindrone (contraceptive) 40505556355 Jaswant Cervantes MD GABAPENTIN 600 MG TABS Take 1 tablet by mouth three times a day 03/10 gabapentin 15856783371 Jaswant Cervantes MD ESCITALOPRAM OXALATE 10 MG TABS Take 1/2 tablet once daily for 1 week, then increase to 1 tablet once daily. 03/10 escitalopram oxalate 94355339934 Jaswant Cervantes MD KETOROLAC TROMETHAMINE (KETOROLAC TROMETHAMINE) 30 MG/ML SOLN 30 mg intramuscularly 03/10 KETOROLAC TROMETHAMINE Jaswant Cervantes MD KETOROLAC TROMETHAMINE (KETOROLAC TROMETHAMINE) 30 MG/ML SOLN 30 mg intramuscularly 03/10 KETOROLAC TROMETHAMINE Jaswant Cervantes MD KETOROLAC TROMETHAMINE (KETOROLAC TROMETHAMINE) 30 MG/ML SOLN 30 mg intramuscularly 03/10 KETOROLAC TROMETHAMINE Jaswant Cervantes MD ALBUTEROL SULFATE HFA 108 (90 Base) MCG/ACT AERS Inhale 1-2 puff by mouth every four hours as needed albuterol sulfate 02112947381 Jaswant Cervantes MD NORETHINDRONE 0.35 MG TABS Take 1 tablet by mouth once a day 03/10 norethindrone (contraceptive) 35641577024 Jaswant Cervantes MD SUMATRIPTAN SUCCINATE 100 MG TABS Take 1 tablet by mouth every two hours as needed sumatriptan succinate 14519406539 Jaswant Cervantes MD KETOROLAC TROMETHAMINE (KETOROLAC TROMETHAMINE) 30 MG/ML SOLN 30 mg intramuscularly 03/10 KETOROLAC TROMETHAMINE Jaswant Cervantes MD TIZANIDINE HCL 2 MG TABS Take 1 tablet by mouth every six hours as needed tizanidine 27538586742 Jaswant Cervantes MD GABAPENTIN 600 MG TABS Take 1 tablet by mouth three times a day 03/10 gabapentin 12031546069 Jaswant Cervantes MD TIZANIDINE HCL 2 MG TABS Take 1 Tablet (2 mg) by mouth every 6 hours if needed for Muscle Spasm. 03/10 tizanidine 93759281246 QIEUSER QIEUSER SUMATRIPTAN SUCCINATE 100 MG TABS Take 1 Tablet (100 mg) by mouth every 2 hours if needed for Migraine. Give at minimum 2hrs apart. Max Dose: 200mg per 24hrs. 03/10 sumatriptan succinate 12289853382 QIEUSER QIEUSER NORETHINDRONE 0.35 MG TABS Take 1 Tablet (0.35 mg) by mouth once daily. 03/10 norethindrone (contraceptive) 92831449347 QIEUSER QIEUSER KETOROLAC TROMETHAMINE (KETOROLAC TROMETHAMINE) 30 MG/ML SOLN 30 mg Intra-Muscular 03/10 KETOROLAC TROMETHAMINE QIEUSER QIEUSER KETOROLAC TROMETHAMINE (KETOROLAC TROMETHAMINE) 30 MG/ML SOLN 30 mg Intra-Muscular 03/10 KETOROLAC TROMETHAMINE QIEUSER QIEUSER GABAPENTIN 600 MG TABS Take 1 Tablet (600 mg) by mouth three times daily. 03/10 gabapentin 03110482020 QIEUSER QIEUSER ESCITALOPRAM OXALATE 10 MG TABS Take 1/2 tablet once daily for 1 week, then increase to 1 tablet once daily. 03/10 escitalopram oxalate 85304192825 QIEUSER QIEUSER ALBUTEROL SULFATE HFA 108 (90 Base) MCG/ACT AERS Inhale 1-2 Puffs by mouth every 4 hours if needed for Shortness Of Breath or Wheezing. 03/10 albuterol sulfate 26130879648 QIEUSER QIEUSER Medications Administered No information available. Allergies, Adverse Reactions, Alerts Allergy Name Reaction Description Start Date Severity Statu s Provider TOPIRAMATE Syncope Mild Active Mesfin Jar ecki PROCHLORPERAZINE Tremors Mild Active Al ex Jarecki ESTROGENS Headache Mild Active Mesfin Jare cki Results Date Name Value Unit Range Flag Description Internal Other: Verbal Autho rization/Emergency Contact - OBS VERBAL_EMER Done Verbal au thorization and emergency contact Internal Other: Authorizatio n - OBS [email or web address] Yes Authoriza tion: Release of Information - Authorize Noran/MDC - Payment and Healthcare Operations ROIAUTHOTHER Yes Authoriz ation: Release of Information - Authorize Others/Insurance - Payment and Healthcare Operations HIECONSENT Yes Consent To Release information to the Health Information Exchange (HIE) [email or web address] Yes Authorizat ion: Authorization for Noran/MDC to leave messages, voicemail, send text messages, send emails AUTHRELHCARE Yes Authoriz ation: Release/Retrieval of Information to/from Healthcare Facilities, Pharmacy Benefit Payers and Providers AUTHPRIVPRAC Yes Authoriz ation: Notice of privacy practices AUTHBENEFIT Yes Authoriza tion: Assignment of Benefits and Payment Agreement Office Visit: Office Visit f ax MEDS REVIEW Done Documenta tion of current medications (procedure) Plan of Care Type Date Detail Pending order Follow up with N eurologist or RACHEL Pending order EEG (40min) Pending order Patient Instruct ions Procedures Code Procedure Name Date Entry Date ORDERS Follow up with Neurologist or RACHEL [address] [place] [address] EEG (40min) [facility]-[id number] EEG (AWAKE/DROWSY) (END) 02 ORDERS Patient Instructions [id number] Documentation of current medicatio ns Vital Signs Date Name Value Unit Description Heart Rate 62 /min pulse rate Immunizations No information available. Advance Directives No information available.
[2024-08-21 15:34] VITALS: BP 145/94; PULSE 96; RESP 16; TEMP 36.5; O2SAT 98; BMI 43.3
--- NOTE | 2024-08-21 16:30 | CRLHL7_ITS ---
For Patients: As a result of the Century Cures Act, medical imaging exams and procedure reports are released immediately into your electronic medical record. You may view this report before your referring provider. If you have questions, please contact your health care provider. INDICATION: Pelvic pain and abnormal uterine bleeding, recent pelvic inflammatory disease diagnosis during her appendectomy 3 weeks ago. COMPARISON: CT abdomen/pelvis on August 03, 2024 and prior studies TECHNIQUE: Frost-scale and color Doppler ultrasound of the uterus and ovaries from a transabdominal and transvaginal approach. Transvaginal ultrasound of the pelvis was performed to better visualize the genitourinary organs, such as the ovaries and/or endometrium. Color-flow and spectral Doppler imaging of both ovaries is performed. FINDINGS: The uterus measures 8.8 x 3.7 x 4.6 cm and demonstrates normal echogenicity. No uterine masses. The endometrial stripe measures 0.3 cm in double thickness. No endometrial masses. The cervix is normal. The right ovary measures 3.6 x 3.1 x 2.5 cm and contains a cystic lesion with lace-like internal echoes measuring 2.0 x 2.0 x 1.7 centimeters, favored to represent a small hemorrhagic cyst. There is normal arterial and venous color Doppler flow and normal arterial and venous waveforms on duplex Doppler. The left ovary measures 3.3 x 2.6 x 1.6 cm. Physiologic appearance without a dominant cystic lesion or solid ovarian / adnexal mass. There is normal arterial and venous color Doppler flow and normal arterial and venous waveforms on duplex Doppler. No free fluid. IMPRESSION: 1. The uterus, endometrium, and left ovary are unremarkable in appearance. 2. Left ovarian cystic lesion with faint lace-like internal echoes measuring 2.0 centimeters, favored to represent a small hemorrhagic cyst, and much less likely a small tubo-ovarian abscess. Dictated by Marquez Liao MD @ 08/21/2024 6:09:30 PM (Electronically Signed)
--- OUTSIDE RECORDS SUMMARY | 2024-08-21 16:42 | XMS_ITS | Clinical Summary ---
Author Organization [employer] [facility] Address [place], [place] [address] Care Team Providers Care Ski Maker Name Role Phone Lauryn Tate Primary Care Provider +1- [phone] Allergies Active Allergy Reactions Criticality Noted Date [...] Department Care Team Description 08/04/2024 11:00 AM SHIPPING SUPPORT CLERK Office Visit [facility] [address] [place] [address] Rosa Hannon MD Post-op (Appendix removed 07/30/24- ER yesterday morning- today feeling nauseated, nausea medication not working, abdominal pain rating 8/10 currently taking tylenol, ibuprofen and oxycodone) 08/04/2024 Travel 08/03/2024 Orders Only [facility] HIM SERVICES Scanner 1 scan: (1-Ord) [facility], CT ABD PELVIS W CONTRAST, 08/03/2024 07/31/2024 Lab Requisition [facility] CENTRAL LAB [phone] Unknown, Doctor 07/30/2024 Orders Only [facility] SERVICES Scanner 1 scan: (1-Ord) [facility], LAPAROSCOPIC APPENDECTOMY, 07/30/2024 07/30/2024 Orders Only [facility] SERVICES Scanner 1 scan: (1-Ord) [facility], US PELVIC TRANSVAGINAL, 07/30/2024 07/30/2024 Orders Only [facility] SERVICES Scanner 1 scan: (1-Ord) [facility], CT ABDOMEN PELVIS W CON, 07/30/2024 [...] Sex Assigned at Female 08/03/2024 3:57 PM SHIPPING SUPPORT CLERK Legal Sex Female 5:25 AM SHIPPING SUPPORT CLERK Gender Identity Female 08/03/2024 3:57 PM SHIPPING SUPPORT CLERK Sexual Orientation Not on file Obstetrics History Para Term AB IAB SAB Ectopic Multiple Livin g Live Births 0 0 0 0 0 0 0 0 0 0 0 Last Filed Vital Signs Vital Sign Reading Time Taken Comments Blood Pressure 135/87 08/04/2024 11:14 AM SHIPPING SUPPORT CLERK Pulse 87 08/04/2024 11:14 AM SHIPPING SUPPORT CLERK Temperature 36.8 C (98.3 F) 12/19/2022 1:16 AM CDT Respiratory Rate 20 12/19/2022 1:16 AM CDT Oxygen Saturation 99% 08/04/2024 11:14 AM SHIPPING SUPPORT CLERK Inhaled Oxygen Concentration - - Weight 105.2 [...] Associated Diagnosis Comments SCAN-CT INTERPRETATION 12:00 AM SHIPPING SUPPORT CLERK LAB TRACKING EVENT Routine 07/30/2024 2: 58 PM SHIPPING SUPPORT CLERK PATH TISSUE EXAM Routine 07/30/2024 2:58 PM SHIPPING SUPPORT CLERK SCAN-ULTRASOUND REPORT 12:00 AM SHIPPING SUPPORT CLERK SCAN-CT INTERPRETATION 12:00 AM SHIPPING SUPPORT CLERK SCAN-OPERATIVE/PROCEDUR E REPORT 07/30/2024 12:00 AM SHIPPING SUPPORT CLERK from Last 3 Months Results * SCAN-CT INTERPRETATION (08/03/2024 12:00 AM SHIPPING SUPPORT CLERK) Only the most recent of2 resultswithin the time period is included. Anatomical Region Laterality Modality Other us Scanner OTHER Final Result * LAB TRACKING EVENT (07/30/2024 2:58 PM SHIPPING SUPPORT CLERK) Other (Other) Client Collect / Unknown 07/30/2024 2:58 PM SHIPPING SUPPORT CLERK 08/01/2024 9:40 AM SHIPPING SUPPORT CLERK us Doctor Unknown LAB BILL ONLY Final Result [facility] LABORATORY [address] [place] [address], [place] * PATH TISSUE EXAM (07/30/2024 2:58 PM SHIPPING SUPPORT CLERK) Case Report Pathology Report Case: [id number] Authorizing Provider: Unknown, Doctor Collected: 07/30/2024 0064 Ordering Location: [facility] C[facility]TRAL LAB Received: 07/31/2024 1239 Pathologist: Alvaro Cronin MD Specimen: Appendix 08/04/2024 11:31 AM [facility] ENTRAL LABORATORY Final Diagnosis A) APPENDIX, APPENDECTOMY: 1. Acute appendiceal inflammation, suggestive of early acute appendicitis (see comment) 2. Negative for perforation 3. Negative for neoplasm 08/04/2024 11:31 AM [facility] Comment A) There is acute inflammation of the appendix that is restricted to the mucosa without transmural extension as would be expected for classic acute appendicitis. This most likely represents early, evolving acute appendicitis. 08/04/2024 11:31 AM [facility] Clinical Information Ms. Verde is a 24 y.o. with a preoperative diagnosis of appendicitis. 08/04/2024 11:31 AM [facility] [employer] [facility] Gross Description A) Received in formalin, labeled with the patient's name and Appendix, is a 8.9 cm long appendix with an average diameter of 0.7 cm, with attached mesoappendix. The serosa is purple-krishnamurthy with exudate. The wall averages 0.2 cm. The mucosa is krishnamurthy-pereira. A discrete mass, fecalith or perforation is not identified. Glass Checker sections including the en face margin (inked black) are submitted in one cassette. EVM 08/02/2024 08/04/2024 11:31 AM [facility] Microscopic Description The final diagnosis is based on microscopic examination of appropriate sections of all specimens. 08/04/2024 11:31 AM [facility] Additional Information Interpreted at [facility], Central Laboratory - [address], [place] [address] 08/04/2024 11:31 AM [facility] [employer] [facility] LAB[facility] Other APPENDIX SPECIMEN / Unknown 07/30/2024 2:58 PM SHIPPING SUPPORT CLERK 07/31/2024 12:38 PM SHIPPING SUPPORT CLERK us Doctor Unknown PATHOLOGY/CYTOLOGY Final Result [facility] [address] [place] [address], [place] * SCAN-OPERATIVE/PROCEDURE REPORT (07/30/2024 12:00 AM SHIPPING SUPPORT CLERK) us Scanner OTHER Final Result * SCAN-ULTRASOUND REPORT (07/30/2024 12:00 AM SHIPPING SUPPORT CLERK) Anatomical Region Laterality Modality Other us Scanner OTHER Final Result from Last 3 Months Insurance [facility] Care Teams Ski Maker Relationship Specialty Start Date End Date Lauryn Tate PA [address] [place] [address] PCP - General Physician Transportation Planning Technician 11/25/23
--- OUTSIDE RECORDS SUMMARY | 2024-08-21 16:42 | XMS_ITS | Clinical Summary ---
Author Organization [facility] Address [address] , [address] [place] [address] Phone Care Team Providers Care Visual Education Teacher Name Role Phone [facility], [facility] Unavailable Unava ilable Conditions or Problems Problem Name Problem Code Onset Date Status Entry Date Provider Comment Standard Description Annotate Migraine NOS, not intractable 030040947 (SNOMED CT) Active Erin Tony DNP,TREE AND SHRUB WORKER,CN P Migraine without aura, not refractory Eye and vision exam, routine, abnormal findings - high cup-to-disc ratio 849606961 (SNOMED CT) 03/10 Active 03/10 Jaswant Cervantes MD Procedure carried out on subject Obstructive sleep apnea 59362768 (SNOMED CT) 03/10 Active 03/10 Jaswant Cervantes MD Obstructive sleep apnea syndrome Anxiety associated with depression 852567393 (SNOMED CT) 03/10 Active 03/10 Jaswant Cervantes MD Mixed anxiety and depressive disorder Loss of consciousness 033200541 (SNOMED CT) 03/10 Active 03/10 Jaswant Cervantes MD Loss of consciousness Tension headache 412475448 (SNOMED CT) 03/10 Active 03/10 Jaswant Cervantes MD Tension-type headache Basilar migraine 50083990 (SNOMED CT) 03/10 Active 03/10 Jaswant Cervantes MD Basilar migraine Medications Medication Instructions Start Date Stop Date Generic Name NDC Provider NORETHINDRONE 0.35 MG TABS Take 1 tablet by mouth once a day 03/10 norethindrone (contraceptive) [id number] Jaswant Cervantes MD GABAPENTIN 600 MG TABS Take 1 tablet by mouth three times a day 03/10 gabapentin 91902846594 Jaswant Cervantes MD ESCITALOPRAM OXALATE 10 MG TABS Take 1/2 tablet once daily for 1 week, then increase to 1 tablet once daily. 03/10 escitalopram oxalate 88144439573 Jaswant Cervantes MD KETOROLAC TROMETHAMINE (KETOROLAC TROMETHAMINE) [...] every four hours as needed albuterol sulfate 06000356893 Jaswant Cervantes MD NORETHINDRONE 0.35 MG TABS Take 1 tablet by mouth once a day 03/10 norethindrone (contraceptive) 15480723023 Jaswant Cervantes MD SUMATRIPTAN SUCCINATE 100 MG TABS Take 1 tablet by mouth every two hours as needed sumatriptan succinate 98409337579 Jaswant Cervantes MD KETOROLAC TROMETHAMINE (KETOROLAC TROMETHAMINE) 30 MG/ML SOLN 30 mg intramuscularly 03/10 KETOROLAC TROMETHAMINE Jaswant Cervantes MD TIZANIDINE HCL 2 MG TABS Take 1 tablet by mouth every six hours as needed tizanidine 99279820625 Jaswant Cervantes MD GABAPENTIN 600 MG TABS Take 1 tablet by mouth three times a day 03/10 gabapentin 56410362671 Jaswant Cervantes MD TIZANIDINE HCL 2 MG TABS Take 1 Tablet (2 mg) by mouth every 6 hours if needed for Muscle Spasm. 03/10 tizanidine 92529266156 QIEUSER QIEUSER SUMATRIPTAN SUCCINATE 100 MG TABS Take 1 Tablet (100 mg) by mouth every 2 hours if needed for Migraine. Give at minimum 2hrs apart. Max Dose: 200mg per 24hrs. 03/10 sumatriptan succinate 54046488022 QIEUSER QIEUSER NORETHINDRONE 0.35 MG TABS Take 1 Tablet (0.35 mg) by mouth once daily. 03/10 norethindrone (contraceptive) 14906756950 QIEUSER QIEUSER KETOROLAC TROMETHAMINE (KETOROLAC TROMETHAMINE) 30 MG/ML SOLN 30 mg Intra-Muscular 03/10 KETOROLAC TROMETHAMINE QIEUSER QIEUSER KETOROLAC TROMETHAMINE (KETOROLAC TROMETHAMINE) 30 MG/ML SOLN 30 mg Intra-Muscular 03/10 KETOROLAC TROMETHAMINE QIEUSER QIEUSER GABAPENTIN 600 MG TABS Take 1 Tablet (600 mg) by mouth three times daily. 03/10 gabapentin 50000331910 QIEUSER QIEUSER ESCITALOPRAM OXALATE 10 MG TABS Take 1/2 tablet once daily for 1 week, then increase to 1 tablet once daily. 03/10 escitalopram oxalate 03212703437 QIEUSER QIEUSER ALBUTEROL SULFATE HFA 108 (90 Base) MCG/ACT AERS Inhale 1-2 Puffs by mouth every 4 hours if needed for Shortness Of Breath or Wheezing. 03/10 albuterol sulfate 01820196390 QIEUSER QIEUSER Medications Administered No information available. [...] ORDERS [place] [address] [place] [address] [place] (40min) [facility]-62111 EEG (AWAKE/DROWSY) (END) 02 ORDERS Patient Instructions [facility]-[id number] Documentation of current medicatio ns Vital Signs Date Name Value Unit Description Heart Rate 62 /min pulse rate Immunizations No information available. Advance Directives No information available.
--- OUTSIDE RECORDS SUMMARY | 2024-08-21 16:42 | XMS_ITS | Clinical Summary ---
Author Organization [facility] Address [address] [place] [address] Care Team Providers Care Therapy Administrative Assistant Name Role Phone Elsewhere, Pcp Primary Care Provider Unavailabl e Source Comments Patient records contain information from all sites at [facility]. For routine questions regarding patient records, call [phone] during business hours, M-F 8:00 AM - 5:00 PM Central Time. Record requests for emergency care only can be directed to [phone] at any time.[facility] Allergies Active Allergy Reactions Criticality Noted Date [...] on file Legal Sex Female 2:10 PM MACHINE RIVETER Gender Identity Not on file Sexual Orientation Not on file Last Filed Vital Signs Vital Sign Reading Time Taken Comments Blood Pressure 119/61 07/09/2023 9:00 PM MACHINE RIVETER Pulse 76 07/09/2023 9:00 PM MACHINE RIVETER Temperature 36.3 C (97.3 F) 07/09/2023 6:18 PM MACHINE RIVETER Respiratory Rate 18 07/09/2023 9:00 PM MACHINE RIVETER Oxygen Saturation 99% 07/09/2023 9:00 PM MACHINE RIVETER Inhaled Oxygen Concentration - - Weight 93.6 kg (206 lb 5.6 oz) 07/09/2023 6:15 P M MACHINE RIVETER Height 160.5 cm (5' 3.19) 07/29/2019 7:53 [...] 04/21/2015 Meningococcal Vaccine Completed 04/03/2020, 015 Insurance [facility] Care Teams Therapy Administrative Assistant Relationship Specialty Start Date End Date Elsewhere, Pcp PCP - General Saw Setter 07/29/19
[2024-08-21 17:01] LABS: Basophils Absolute Auto 0.06 K/uL (0.00-0.30); Basophils Percent Auto 0.6 % (0.0-3.0); Eosinophils Absolute Auto 0.11 K/uL (0.00-0.50); Eosinophils Percent Auto 1.1 % (0.0-7.0); Hematocrit 43.8 % (33.0-51.0); Hemoglobin* 15.3 gm/dL (12.0-16.0); Immature Granulocytes Abs Auto 0.01 K/uL (0.00-0.30); Immature Granulocytes Pct Auto 0.1 %; Lactate* 1.3 mmol/L (0.5-1.9); Lymphocytes Absolute Auto 3.62 K/uL (0.90-2.90); Mean Corpuscular HGB Conc 35 gm/dL (32-36); Mean Corpuscular Hemoglobin 31 pg (26-34); Mean Corpuscular Volume 88 fL (80-100); Monocytes Percent Auto 6.9 % (0.0-11.0); Neutrophils Absolute Auto 5.56 K/uL (1.7-7.0); Neutrophils Percent Auto 55.3 % (42.0-72.0); Platelet Count* 350 K/uL (140-440); RDW Coefficient of Variation % 12.5 % (11.5-15.5); Red Blood Count 4.99 m/uL (4.00-5.20); White Blood Count* 10.05 K/uL (4.50-11.00)
--- NOTE | 2024-08-21 17:03 | ED_ITS ---
HPI - General Adult General Chief complaint: Abdominal Pain Stated complaint: Had surgery for PID and now bleeding again Time Seen by Provider: 08/21/24 16:20 Source: patient Mode of arrival: ambulatory Limitations: no limitations History of Present Illness HPI narrative: 24-year-old female presenting with abdominal pain and vaginal bleeding. Patient was seen in the ER on the 29 of July with right lower quadrant abdominal pain, fevers and leukocytosis. It is thought that she perhaps had an appendicitis however, during surgery was found that she also had purulent discharge in the pelvis with hyperemic and dilated fallopian tubes particularly on the right. Presentation was consistent with pelvic inflammatory disease in bilateral pyosalpinx. She did fine postoperatively after appendectomy and washout. However yesterday developed right lower quadrant abdominal pain again. Denies fevers or chills. States that last Friday which is he 3 days ago, she developed vaginal bleeding. She just had her menses on the and is not due for another 1-2 weeks. She states that she has been having fairly heavy bleeding for her since then. Her periods usually last 3 days in her very light she states she has been soaking super tampons every 4-5 hours and has been consistent and not letting up since it started on Friday. She is not lightheaded or dizzy. No nausea or vomiting. No diarrhea or constipation. She denies any rashes. She is not short of breath and she has not been coughing. Related Data Previous Rx's ?Medication ?Instructions ?Recorded triamcinolone acetonide 0.1 % 1 applic topical TID PRN itching 08/16/24 topical ointment #15 grams Allergies Allergy/AdvReac Type Severity Reaction Status Date / Time topiramate Allergy Fainting Verified 08/21/24 15:34 Estrogens AdvReac Migraine Verified 08/21/24 15:34 Review of Systems Status of ROS: Reports: 10 or more systems reviewed and unremarkable except as noted in History and below [facility] Medical History Depression ?F32.A - Depression, unspecified (ICD-10) Asthma ?J45.909 - Unspecified asthma, uncomplicated (ICD-10) Surgical History No significant past surgical history Social History Narrative: fiance-Ricky Smoking Status: Never smoker Do you use any of these nicotine containing products: None Second hand tobacco smoke exposure: No How often do you have a drink containing alcohol: never AUDIT-C Alcohol total score: 0 Non-prescribed substance use: denies use service: No Exam Narrative: Exam Narrative: Well-nourished well-developed patient in no acute distress. Alert and oriented. Answers questions appropriately. Mood and affect are appropriate. Thoughts are goal oriented and rational. No tangential or magical thinking noted. Patient speaks in full sentences without needing to catch her breath. Patient is a very poor historian. Has a difficult time recalling events from prior hospitalizations. HEENT: Normocephalic atraumatic. Pupils are equally round reactive to light. Extraocular muscles are intact. Conjunctivae are moist without any icterus noted. Moist mucous membranes. Posterior pharynx is normal. Neck is soft without any lymphadenopathy or thyromegaly. No masses are appreciated. Cardiovascular: Heart is regular rate and rhythm S1 and S2 are present without any murmurs. Lungs: Clear to auscultation bilaterally no wheezes rhonchi or rales are appreciated. Patient takes deep breaths without any discomfort. Abdomen: Soft and nondistended. Patient has very mild periumbilical discomfort. Discomfort radiates into the right upper quadrant. She has a negative Urrutia sign. She does not have any pelvic discomfort. She has no suprapubic pain. No significant right or left lower quadrant discomfort. She has normal bowel sounds. Extremities: Bilateral lower extremities are without edema. Normal DP and PT pulses. Skin: Well perfused without any obvious rashes. Const: Vital Signs, click to edit/add: Vital Signs - 24 hr 08/21/24 15:34 Temperature 97.7 F Pulse Rate [Pulse Oximeter] 96 Respiratory Rate 16 Blood Pressure [Ri ght Upper Arm] 145/94 H Pulse Oximetry 98 Oxygen Delivery Me thod Room Air Course Course ED Course: Blood work is entirely normal. No evidence of anemia, infection or inflammation. Urinalysis is positive for blood as expected. Pelvic ultrasound shows a probable right-sided hemorrhagic ovarian cyst. Last likely a tubo-ovarian abscess. Discussed results with the patient. At this time I recommend monitoring of discomfort and systemic symptoms. I would like for her to follow up with her OBGYN this coming week to see how she was doing. If she develops a fever, vomiting or worsening pain, would recommend repeat ultrasound laboratory investigations and potentially an abdominal CT scan. As far as her vaginal bleeding, she she is not hemorrhaging at this time. Recommend monitoring for the next few days. And again follow-up with OBGYN. Vital Signs Vital signs: Initial Vital Signs Temperature 97.7 F 08/21/24 15:34 Temperature Source Oral 08/21/24 15:34 Pulse Rate 96 08/21/24 15:34 Respiratory Rate 16 08/21/24 15:34 Blood Pressure 145/94 H 08/21/24 15:34 Blood Pressure Mean 111 H 08/21/24 15:34 Blood Pressure Position Sitting 08/21/24 15:34 Pulse Oximetry 98 08/21/24 15:34 Oxygen Delivery Method Room Air 08/21/24 15:34 Vital Signs Temperature 97.7 F 08/21/24 15:34 Pulse Rate 96 08/21/24 15:34 Respiratory Rate 16 08/21/24 15:34 Blood Pressure 145/94 H 08/21/24 15:34 Pulse Oximetry 98 08/21/24 15:34 Oxygen Delivery Method Room Air 08/21/24 15:34 Temperature 97.7 F 08/21/24 15:34 Pulse Rate 96 08/21/24 15:34 Respiratory Rate 16 08/21/24 15:34 Blood Pressure 145/94 H 08/21/24 15:34 Pulse Oximetry 98 08/21/24 15:34 Oxygen Delivery Method Room Air 08/21/24 15:34 Medical Decision Making [facility] Narrative Medical decision making narrative: 24-year-old female vaginal bleeding, right-sided abdominal pain, nonspecific. Workup unremarkable today. History of PID and bilaterally salpinx status post treatment. Plan per above. Lab Data Lab results reviewed: Yes I reviewed the patient's lab results Labs: Lab Results 08/21/24 Range/Units 16:45 WBC 10.05 (4.50-11.00) K/uL RBC 4.99 (4.00-5.20) m/uL Hgb 15.3 (12.0-16.0) gm/dL Hct 43.8 (33.0-51.0) % MCV 88 (80-100) fL MCH 31 (26-34) pg MCHC 35 (32-36) gm/dL RDW Coeff of Trae 12.5 (11.5-15.5) % Plt Count 350 (140-440) K/uL Neut % (Auto) 55.3 (42.0-72.0) % Lymph % (Auto) 36.0 (20-44) % [place]ins % (Auto) 6.9 (0.0-11.0) % Eos % (Auto) 1.1 (0.0-7.0) % Baso % (Auto) 0.6 (0.0-3.0) % Neut # (Auto) 5.56 (1.7-7.0) K/uL Lymph # (Auto) 3.62 H (0.90-2.90) K/uL [place] # (Auto) 0.70 (0.00-0.90) K/UL Eos # (Auto) 0.11 (0.00-0.50) K/uL Baso # (Auto) 0.06 (0.00-0.30) K/uL Abs Immat Gran (auto) 0.01 (0.00-0.30) K/uL Imm/Tot Granulo (auto) 0.1 % INR 0.93 (0.91-1.10) Sodium 136 (135-149) mmol/L Potassium 4.3 (3.6-5.1) mmol/L Chloride 106 (96-114) mmol/L Carbon Dioxide 20 (20-32) mmol/L Anion Gap 10 (7-15) mEq/L BUN 10 (5-24) mg/dL Creatinine 0.5 (0.5-1.5) mg/dL Estimated Creat Clear 152.40 Estimated GFR 136 ml/min Glucose 88 (60-115) mg/dL Lactate 1.3 (0.5-1.9) mmol/L Calcium 8.9 (8.4-10.6) mg/dL Total Bilirubin 0.9 (0.1-1.5) mg/dL Direct Bilirubin 0.2 (0.0-0.5) mg/dL AST 29 (12-35) U/L ALT 30 (4-35) U/L Alkaline Phosphatase 64 (40-150) U/L C-Reactive Protein < 0.5 L (0.5-1.0) mg/dL Total Protein 7.2 (6.0-8.3) g/dL Albumin 4.2 (3.3-5.0) g/dL Lipase 40 (23-300) U/L TSH 2.530 (0.270-4.20) uIU/mL Urine Color Red A (Yellow) Urine Appearance Cloudy A (Clear) Urine pH 6.5 (5.0-8.5) Ur Specific [employer] 1.025 (1.000-1.030) Urine Protein Trace A (Negative) Urine Glucose (UA) Negative (Negative) Urine Ketones Negative (Negative) Urine Blood 3+ A (Negative) Urine Nitrite Negative (Negative) Urine Bilirubin Negative (Negative) Urine Urobilinogen 0.2 (0.2-1.0) Ur Leukocyte Esterase Negative (Negative) Urine RBC >100 A (0-2) Urine WBC 5-10 A (0-5) Ur Squamous Epith Cells Moderate A (None-Few) Urine Bacteria Few A (None) Urine HCG, Qual Negative (Negative) Imaging Data US - abdomen: Attestation: I have reviewed the pertinent imaging results. Radiologist's impression: INDICATION: Pelvic pain and abnormal uterine bleeding, recent pelvic inflammatory disease diagnosis during her appendectomy 3 weeks ago. COMPARISON: CT abdomen/pelvis on August 03, 2024 and prior studies TECHNIQUE: Frost-scale and color Doppler ultrasound of the uterus and ovaries from a transabdominal and transvaginal approach. Transvaginal ultrasound of the pelvis was performed to better visualize the genitourinary organs, such as the ovaries and/or endometrium. Color-flow and spectral Doppler imaging of both ovaries is performed. FINDINGS: The uterus measures 8.8 x 3.7 x 4.6 cm and demonstrates normal echogenicity. No uterine masses. The endometrial stripe measures 0.3 cm in double thickness. No endometrial masses. The cervix is normal. The right ovary measures 3.6 x 3.1 x 2.5 cm and contains a cystic lesion with lace-like internal echoes measuring 2.0 x 2.0 x 1.7 centimeters, favored to represent a small hemorrhagic cyst. There is normal arterial and venous color Doppler flow and normal arterial and venous waveforms on duplex Doppler. The left ovary measures 3.3 x 2.6 x 1.6 cm. Physiologic appearance without a dominant cystic lesion or solid ovarian / adnexal mass. There is normal arterial and venous color Doppler flow and normal arterial and venous waveforms on duplex Doppler. No free fluid. IMPRESSION: 1. The uterus, endometrium, and left ovary are unremarkable in appearance. 2. Left ovarian cystic lesion with faint lace-like internal echoes measuring 2.0 centimeters, favored to represent a small hemorrhagic cyst, and much less likely a small tubo-ovarian abscess. Discharge Plan Discharge Clinical Impression: Abdominal pain, Vaginal bleeding Patient Disposition: Home, Self-Care Condition: Stable Additional Instructions: For your discomfort I recommend taking ibuprofen or Tylenol as needed/as directed. You can also use a heating pad to the abdomen-not apply heat directly to the skin and do not use more than 20 minutes at a time. You need to follow-up with your OBGYN this coming week. If you develop vomiting, pain that cannot be controlled or fever you should return to the emergency department. Prescriptions: No Action triamcinolone acetonide 0.1 % ointment 1 applic topical TID PRN (Reason: itching) Qty: 15 0RF Follow Up/Referrals: Lauryn Tate PA-C [Primary Care Provider] - Stand Alone Forms: MyHealth Info Instructions
[2024-08-21 17:12] LABS: Slide Review Reflex No
[2024-08-21 17:15] LABS: Appearance Urine Cloudy (Clear); Bilirubin Urine Negative (Negative); Blood Urine 3+ (Negative); Color Urine Red (Yellow); Glucose Urine Negative (Negative); Ketones Urine Negative (Negative); Leukocyte Esterase Urine Negative (Negative); Nitrite Urine Negative (Negative); Protein Urine Trace (Negative); Specific Gravity Urine 1.025 (1.000-1.030); Urobilinogen Urine 0.2 (0.2-1.0); pH Urine 6.5 (5.0-8.5)
[2024-08-21 17:17] LABS: Ur HCG Qualitative* Negative (Negative)
[2024-08-21 17:24] LABS: INR 0.93 (0.91-1.10)
[2024-08-21 17:26] LABS: Albumin* 4.2 g/dL (3.3-5.0); Chloride* 106 mmol/L (96-114); Potassium* 4.3 mmol/L (3.6-5.1); Sodium* 136 mmol/L (135-149)
[2024-08-21 17:28] LABS: Creatinine* 0.5 mg/dL (0.5-1.5); Estimated Glomerular Filt Rate 136 ml/min
[2024-08-21 17:29] LABS: Alanine Aminotransferase* 30 U/L (4-35); Alkaline Phosphatase* 64 U/L (40-150); Anion Gap 10 mEq/L (7-15); Aspartate Amino Transferase* 29 U/L (12-35); Bilirubin Direct* 0.2 mg/dL (0.0-0.5); Bilirubin Total* 0.9 mg/dL (0.1-1.5); Blood Urea Nitrogen* 10 mg/dL (5-24); Calcium* 8.9 mg/dL (8.4-10.6); Carbon Dioxide* 20 mmol/L (20-32); Glucose* 88 mg/dL (60-115); Lipase* 40 U/L (23-300); Total Protein* 7.2 g/dL (6.0-8.3)
[2024-08-21 17:35] LABS: C Reactive Protein* < 0.5 mg/dL (0.5-1.0)
[2024-08-21 17:36] LABS: Bacteria Urine Few; RBC Urine >100 (0-2); Squamous Epithelial Cell Urine Moderate (None-Few)
== END 2024-08-21 18:29 | disposition home or self-care (01) ==
PROVIDERS: Emergency Provider Family Medicine; PCP Physician Assistant
DX: R10.9 Unspecified abdominal pain (principal); N93.9 Abnormal uterine and vaginal bleeding, unspecified
CPT/HCPCS: 36415; 76830; 76856; 80048; 80076; 81001; 81025; 83605; 83690; 84443; 85025; 85610; 86140; 87086; 93976; 99284

== ENCOUNTER 2024-11-03 13:47 | Outpatient (CLI) | payer OTHER, SELFPAY ==
[2024-11-03 16:26] LABS: Bacterial Vaginosis* Negative (Negative); Candida glab/krus NOT DETECTED (No Detected); Candida species NOT DETECTED (No Detected); Trichomonas vaginalis NOT DETECTED (No Detected)
[2024-11-03 19:11] LABS: Chlamydia DNA Amplified* NOT DETECTED (No Detected); GC DNA Amplified* NOT DETECTED (No Detected)
== END 2024-11-03 13:48 | disposition home or self-care (01) ==
PROVIDERS: PCP Physician Assistant; Visit Provider Registered Nurse
DX: R10.2 Pelvic and perineal pain (principal); N91.5 Oligomenorrhea, unspecified; Z12.4 Encounter for screening for malignant neoplasm of cervix
CPT/HCPCS: 81513; 82670; 83001; 83498; 84146; 84270; 84402; 84403; 84443; 87086; 87481; 87491; 87591; 87624; 87625; 87661; 88141; 88142

== ENCOUNTER 2024-11-11 15:49 | Outpatient (CLI) | payer OTHER, SELFPAY ==
--- NOTE | 2024-11-11 16:00 | CRLHL7_ITS ---
For Patients: As a result of the Century Cures Act, medical imaging exams and procedure reports are released immediately into your electronic medical record. You may view this report before your referring provider. If you have questions, please contact your health care provider. INDICATION: Pelvic and perineal pain COMPARISON: 08/21/2024 TECHNIQUE: 2D pereira scale and color Doppler images were acquired of the pelvis using a transabdominal and transvaginal approach. FINDINGS: Sonographic images demonstrate a normal size and smooth outer contour of the uterus. Uterus measures 8.2 cm in length by 3.9 cm in AP diameter by 5.4 cm in transverse dimension. The myometrium has a normal uniform echotexture. The endometrial lining appears normal and measures 7.2 mm in composite thickness. The right ovary measures 3.1 x 1.8 x 1.7 cm in size and the left ovary measures 4.4 x 2.5 x 3.0 cm. The ovaries demonstrate normal arterial and venous blood flow on color Doppler analysis. There are no suspicious fluid collections within the cul-de-sac. IMPRESSION: Resolution of the previously noted hemorrhagic right ovarian cyst. Normal exam. Dictated by Trenton Carlson MD @ 11/12/2024 6:41:26 AM (Electronically Signed)
== END 2024-11-11 15:50 | disposition home or self-care (01) ==
LOC: US 15:49
PROVIDERS: PCP Physician Assistant; Visit Provider Registered Nurse
DX: R10.2 Pelvic and perineal pain (principal)
CPT/HCPCS: 76830; 76856

== ENCOUNTER 2024-11-26 08:27 | Outpatient (CLI) | payer OTHER, SELFPAY ==
[2024-11-26 14:58] LABS: Bacterial Vaginosis* Negative (Negative); Candida glab/krus NOT DETECTED (No Detected); Candida species NOT DETECTED (No Detected); Trichomonas vaginalis NOT DETECTED (No Detected)
== END 2024-11-26 08:28 | disposition home or self-care (01) ==
PROVIDERS: PCP Physician Assistant; Visit Provider Registered Nurse
DX: N89.8 Other specified noninflammatory disorders of vagina (principal)
CPT/HCPCS: 80061; 81513; 87481; 87661

== ENCOUNTER 2025-01-12 08:58 | Outpatient (CLI) | payer OTHER, SELFPAY | END 2025-01-12 08:59 | disposition home or self-care (01) | LOC: NFLDREF 01-14 16:14 | PROVIDERS: PCP Physician Assistant; Referring Provider Physician Assistant; Visit Provider Advanced Practice Midwife | DX: R30.0 Dysuria (principal) | CPT/HCPCS: 87086 ==

== ENCOUNTER 2025-01-28 10:44 | Day surgery (SDC) | payer OTHER, SELFPAY ==
[2025-01-28] VITALS (20 sets, daily range): BP systolic 109–138; BP diastolic 62–107; PULSE 65–91; RESP 16–19; TEMP 36.2–37.2; O2SAT 94–100; BMI 42.9
[2025-01-28] MEDS: LACTATED RINGERS 1000 ML 1,000 ML 100 ML IV (10:55)
[2025-01-28 11:18] LABS: Ur HCG Qualitative* Negative (Negative)
[2025-01-28] MEDS: OXYMETAZOLINE 0.05% NASAL SPRAY 2 SPRAY NOSTRIL-B (11:20)
[2025-01-28] MEDS: SODIUM CHLORIDE 0.9 % (FLUSH) 10 ML SYRINGE IVF (11:24)
[2025-01-28] MEDS: BUPIVACAINE 0.5%/EPINEPHRINE 0.9 MG (30.9 ML) INJECTION (12:20)
[2025-01-28] MEDS: AYR SALINE NASAL GEL 1 APPLIC NOSTRIL-B (12:30)
--- NOTE | 2025-01-28 12:41 | W.PM.ENTPROC ---
Procedure Note Date of procedure: 01/28/25 Procedure: Preoperative diagnosis chronic tonsillitis, adenotonsillar hypertrophy, upper airway obstruction, nasal obstruction, bilateral inferior turbinate and middle turbinate hypertrophy Postoperative diagnosis same Procedure adenotonsillectomy, submucous partial resection inferior turbinates Under general endotracheal anesthesia the patient was prepped and draped in usual fashion. The McIvor mouth gag was inserted the tongue retracted forward. No submucous cleft was noted on inspection or palpation. The right and left tonsils were removed with a combination of needlepoint cautery, bipolar cautery and suction cautery. Meticulous hemostasis was achieved. The adenoid pad was visualized with a laryngeal mirror and removed with suction cautery. The nose was decongested with cocaine pledgets in the anterior head of the inferior middle turbinates were injected. Stab incision was made in the anterior of the right inferior turbinate a tunnel created with a Aster dissector. A conservative anterior submucous resection was performed the mckenzie bone outfractured. The Coblation Wand was used for hemostasis and to cauterize intramurally along the inferior 10%. This was repeated on the left side in identical fashion. Both middle turbinates were simply crushed with the [place] forceps. Dissolvable packing and a single Merocel pack was placed on each side by the middle turbinates. The patient was extubated in the operating room taken recovery in satisfactory condition. Blood loss was less than 30mL. Surgeon: Cash Ogden MD
--- NOTE | 2025-01-28 12:59 | P.ANES_ITS ---
Anesthesia Charges Start Date/Time Anesthesia Start Date: 01/28/25 Anesthesia Start Time: 12:04 Stop Date/Time Anesthesia Stop Date: 01/28/25 Anesthesia Stop Time: 12:57 Coding CPT Codes CPT Codes: ANESTH PROCEDURE ON MOUTH - 86609 ([id number]) P3 - PATIENT W/SEVERE SYS DISEASE, QK - CIVIL MANAGER 2-4 CNCRNT ANES PROC, QX - BELT SANDER SVC W/ MD MED DIRECTION
--- NOTE | 2025-01-28 12:59 | W.ANESCHARGE ---
Anesthesia Charges Start Date/Time Anesthesia Start Date: 01/28/25 Anesthesia Start Time: 12:04 Stop Date/Time Anesthesia Stop Date: 01/28/25 Anesthesia Stop Time: 12:57 Coding CPT Codes CPT Codes: ANESTH PROCEDURE ON MOUTH - 87872 ([id number]) P3 - PATIENT W/SEVERE SYS DISEASE, QK - HOME BUILDER 2-4 CNCRNT ANES PROC, QX - ASSOCIATE PROFESSOR OF MATHEMATICS SVC W/ MD MED DIRECTION
--- NOTE | 2025-01-28 13:04 | P.ANES_ITS ---
Anesthesia Charges Start Date/Time Anesthesia Start Date: 01/28/25 Anesthesia Start Time: 12:04 Stop Date/Time Anesthesia Stop Date: 01/28/25 Anesthesia Stop Time: 12:57 Coding CPT Codes CPT Codes: ANESTH PROCEDURE ON MOUTH - 68837 ([id number]) QK - INSPECTOR EYEGLASS 2-4 CNCRNT ANES PROC, QX - INCOME TAX AUDITOR SVC W/ MD MED DIRECTION, P3 - PATIENT W/SEVERE SYS DISEASE
--- NOTE | 2025-01-28 13:04 | W.ANESCHARGE ---
Anesthesia Charges Start Date/Time Anesthesia Start Date: 01/28/25 Anesthesia Start Time: 12:04 Stop Date/Time Anesthesia Stop Date: 01/28/25 Anesthesia Stop Time: 12:57 Coding CPT Codes CPT Codes: ANESTH PROCEDURE ON MOUTH - 03139 ([id number]) QK - BIT WELDER 2-4 CNCRNT ANES PROC, QX - VARNISH MAKER HELPER SVC W/ MD MED DIRECTION, P3 - PATIENT W/SEVERE SYS DISEASE
[2025-01-28] MEDS: IBUPROFEN 100 MG/5 ML SUSP 200 MG PO (13:45)
[2025-01-28] MEDS: ACETAMINOPHEN 160 MG/5 ML CUP 320 MG PO (13:45)
[2025-01-28] MEDS: OXYCODONE 1 MG/ML ORAL SOLN 5 MG PO (13:45)
[2025-01-28] MEDS: METOCLOPRAMIDE HCL 5 MG/ML INJ 10 MG IVP (15:38)
== END 2025-01-28 16:13 | disposition home or self-care (01) ==
LOC: OR 10:46
PROVIDERS: PCP Physician Assistant; Visit Provider Otolaryngology
PROC: (CPT 42821; principal; 2025-01-28 12:00)
DX: J35.01 Chronic tonsillitis (principal); J35.3 Hypertrophy of tonsils with hypertrophy of adenoids; J34.3 Hypertrophy of nasal turbinates; J34.89 Other specified disorders of nose and nasal sinuses
CPT/HCPCS: 42821; 30140; 00170; 81025; 88304; A9270; J0330; J1100; J2250; J2405; J2704; J2765; J3010; J7120

== ENCOUNTER 2025-01-31 10:14 | Emergency (ER) | payer OTHER, SELFPAY ==
--- OUTSIDE RECORDS SUMMARY | 2025-01-31 10:23 | XMS_ITS | Clinical Summary ---
Author Organization [facility] Address [address] [place] [address] Care Team Providers Care Tarp Repairer Name Role Phone Elsewhere, Pcp Primary Care Provider Unavailabl e Source Comments Patient records contain information from all sites at [facility]. For routine questions regarding patient records, call [phone] during business hours, M-F 8:00 AM - 5:00 PM Central Time. Record requests for emergency care only can be directed to [phone] at any time.[facility] Allergies Active Allergy Reactions Criticality Noted [...] drink = 0.6 oz pur e alcohol) Comments Unknown Sex and Gender Information Value Date Recorded Sex Assigned at Not on file Legal Sex Female 2:10 PM QUALITY FACILITATOR Gender Identity Not on file Sexual Orientation Not on file Last Filed Vital Signs Vital Sign Reading Time Taken Comments Blood Pressure 119/61 07/09/2023 9:00 PM QUALITY FACILITATOR Pulse 76 07/09/2023 9:00 PM QUALITY FACILITATOR Temperature 36.3 C (97.3 F) 07/09/2023 6:18 PM QUALITY FACILITATOR Respiratory Rate 18 07/09/2023 9:00 PM QUALITY FACILITATOR Oxygen Saturation 99% 07/09/2023 9:00 PM QUALITY FACILITATOR Inhaled Oxygen Concentration - - Weight 93.6 kg (206 lb 5.6 oz) 07/09/2023 6:15 P M QUALITY FACILITATOR Height 160.5 cm (5' 3.19) 07/29/2019 7:53 AM CS T Body Mass Index - - Plan of Treatment Health Maintenance Due Date Last Done Comments Cervical/Vaginal Cancer Screening 2002 Chlamydia and Gonorrhea Screening 2002 HIV Screening 2002 Hepatitis C Screening 2002 COVID-19 Vaccine ( season) 2024 08/07/2022 Depression Screening (Annual PHQ-2) 07/21/2024 DTaP,Tdap,and Td Vaccines (7 - Td or Tdap) 10/18/2024 10/18/2014, 04/12/2008, 04/06/2007, Additional history exists Influenza Vaccine (#1) 2025 04/30/2013, 2010 Pneumococcal vaccine (0-49 years) Aged Out 08/05/2003, 01/18/2003, 2002, Additional history exists No longer eligible based on patient's age to complete this topic Hepatitis B Vaccines Completed 04/06/2007, 2002, 2002 IPV Vaccines Completed 04/12/2008, 03/21, 01/18/2003, Additional history exists HPV Vaccines Completed 09/19/2017, 08/2014, 04/21/2015 Meningococcal Vaccine Completed 04/03/2020, 015 Insurance [facility] Care Teams Tarp Repairer Relationship Specialty Start Date End Date Elsewhere, Pcp PCP - General News Assistant 07/29/19
--- OUTSIDE RECORDS SUMMARY | 2025-01-31 10:23 | XMS_ITS | Clinical Summary ---
Author Organization [facility] Address [address] , [address] [place] [address] Phone Care Team Providers Care Forest Fire Warden Name Role Phone [facility], Sydneejeremiah Unavailable Unava ilable Conditions or Problems Problem Name Problem Code Onset Date Status Entry Date Provider Comment Standard Description Annotate Migraine NOS, not intractable 981828093 (SNOMED CT) Active Erin Tony DNP,PAINT LABORATORY TECHNICIAN,CN P Migraine without aura, not refractory Eye and vision exam, routine, abnormal findings - high cup-to-disc ratio 168722218 (SNOMED CT) 03/10 Active 03/10 Jaswant Cervantes MD Procedure carried out on subject Obstructive sleep apnea 70485904 (SNOMED CT) 03/10 Active 03/10 Jaswant Cervantes MD Obstructive sleep apnea syndrome Anxiety associated with depression 963433707 (SNOMED CT) 03/10 Active 03/10 Jaswant Cervantes MD Mixed anxiety and depressive disorder Loss of consciousness 668893901 (SNOMED CT) 03/10 Active 03/10 Jaswant Cervantes MD Loss of consciousness Tension headache 990871485 (SNOMED CT) 03/10 Active 03/10 Jaswant Cervantes MD Tension-type headache Basilar migraine 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 03/10 escitalopram oxalate 02921965495 Jaswant Cervantes MD KETOROLAC TROMETHAMINE (KETOROLAC TROMETHAMINE) [...] every four hours as needed albuterol sulfate 91531042384 Jaswant Cervantes MD NORETHINDRONE 0.35 MG TABS Take 1 tablet by mouth once a day 03/10 norethindrone (contraceptive) 48359758183 Jaswant Cervantes MD SUMATRIPTAN SUCCINATE 100 MG TABS Take 1 tablet by mouth every two hours as needed sumatriptan succinate 22440623045 Jaswant Cervantes MD KETOROLAC TROMETHAMINE (KETOROLAC TROMETHAMINE) 30 MG/ML SOLN 30 mg intramuscularly 03/10 KETOROLAC TROMETHAMINE Jaswant Cervantes MD TIZANIDINE HCL 2 MG TABS Take 1 tablet by mouth every six hours as needed tizanidine 11448370266 Jaswant Cervantes MD GABAPENTIN 600 MG TABS Take 1 tablet by mouth three times a day 03/10 gabapentin 81400342626 Jaswant Cervantes MD TIZANIDINE HCL 2 MG TABS Take 1 Tablet (2 mg) by mouth every 6 hours if needed for Muscle Spasm. 03/10 tizanidine 87424760702 QIEUSER QIEUSER SUMATRIPTAN SUCCINATE 100 MG TABS Take 1 Tablet (100 mg) by mouth every 2 hours if needed for Migraine. Give at minimum 2hrs apart. Max Dose: 200mg per 24hrs. 03/10 sumatriptan succinate 91034615537 QIEUSER QIEUSER NORETHINDRONE 0.35 MG TABS Take 1 Tablet (0.35 mg) by mouth once daily. 03/10 norethindrone (contraceptive) 91151668950 QIEUSER QIEUSER KETOROLAC TROMETHAMINE (KETOROLAC TROMETHAMINE) 30 MG/ML SOLN 30 mg Intra-Muscular 03/10 KETOROLAC TROMETHAMINE QIEUSER QIEUSER KETOROLAC TROMETHAMINE (KETOROLAC TROMETHAMINE) 30 MG/ML SOLN 30 mg Intra-Muscular 03/10 KETOROLAC TROMETHAMINE QIEUSER QIEUSER GABAPENTIN 600 MG TABS Take 1 Tablet (600 mg) by mouth three times daily. 03/10 gabapentin 12871686640 QIEUSER QIEUSER ESCITALOPRAM OXALATE 10 MG TABS Take 1/2 tablet once daily for 1 week, then increase to 1 tablet once daily. 03/10 escitalopram oxalate 60318083406 QIEUSER QIEUSER ALBUTEROL SULFATE HFA 108 (90 Base) MCG/ACT AERS Inhale 1-2 Puffs by mouth every 4 hours if needed for Shortness Of Breath or Wheezing. 03/10 albuterol sulfate 05367348748 QIEUSER QIEUSER Medications Administered No information available. [...] ORDERS [place] [address] [place] [address] EEG (40min) [facility]-[id number] EEG (AWAKE/DROWSY) (END) 02 ORDERS Patient Instructions [facility]-[id number] Documentation of current medicatio ns Vital Signs Date Name Value Unit Description Heart Rate 62 /min pulse rate Immunizations No information available. Advance Directives No information available.
--- OUTSIDE RECORDS SUMMARY | 2025-01-31 10:23 | XMS_ITS | Clinical Summary ---
Author Organization [facility] Address [address] [place] [address] Care Team Providers Care Warehouse Team Member Name Role Phone Lauryn Tate Primary Care Provider [phone] Allergies Active Allergy Reactions Criticality Noted Date Comments Estrogens Headache 10/17/2017 Got worse headache on oral contraceptives Prochlorperazine Tremors 06/14/2019 Possible seizure lasted 30-60 seconds. She recalls the episode. Topiramate Syncope 11/25/2023 Medications tiZANidine (ZANAFLEX) 2 mg tabletIndications :TMJ tenderness, bilateral TAKE 1 TABLET(2 MG) BY MOUTH EVERY 6 HOURS NEEDED FOR MUSCLE SPASM 30 Tablet 4 Active SUMAtriptan 100 mg tabletIndications :Migraine without aura and without status migrainosus, not intractable Take 1 Tablet (100 mg) by mouth every 2 hours if needed for Migraine. Give at minimum 2hrs apart. Max Dose: 200mg per 24hrs. 10 Tablet 11 5 Active albuterol HFA 90 mcg/actuation inhalerIndication s:Mild intermittent asthma without complication (HC) Inhale 1-2 Puffs by mouth every 4 hours if needed for Shortness Of Breath or Wheezing. 18 g 11 5 Active escitalopram oxalate (LEXAPRO) 10 mg tabletIndications :MDD (major depressive disorder), recurrent episode, moderate (HC) Take 1/2 tablet once daily for 1 week, then increase to 1 tablet once daily. 90 Tablet 1 4 025 Discontin ued(*Med complete/ Regimen complete/ Level of care change) albuterol HFA (PRO-AIR; VENTOLIN; PROVENTIL) 90 mcg/actuation inhalerIndication s:Mild intermittent asthma without complication (HC) Inhale 1-2 Puffs by mouth every 4 hours if needed for Shortness Of Breath or Wheezing. 18 g 11 4 025 Discontin ued(Reord er (E-cancel not sent)) SUMAtriptan (IMITREX) 100 mg tabletIndications :Migraine without aura and without status migrainosus, not intractable Take 1 Tablet (100 mg) by mouth every 2 hours if needed for Migraine. Give at minimum 2hrs apart. Max Dose: 200mg per 24hrs. 10 Tablet 11 4 025 Discontin ued(Reord er (E-cancel not sent)) gabapentin (NEURONTIN) 600 mg tabletIndications :Migraine without aura and without status migrainosus, not intractable Take 1 Tablet (600 mg) by mouth three times daily. 270 Tablet 1 4 025 Discontin ued(*Med complete/ Regimen complete/ Level of care change) norethindrone, Contraceptive, (MICRONOR, 28,) 0.35 mg tabletIndications :Oral contraceptive use Take 1 Tablet (0.35 mg) by mouth once daily. 90 Tablet 3 4 025 Discontin ued(*Med complete/ Regimen complete/ Level of care change) metoclopramide (Reglan) 5 mg tabletIndications :Nausea Take 1 Tablet (5 mg) by mouth every 6 hours if needed for Nausea/Vomiti ng. 20 Tablet 5 025 Discontin ued(*Med complete/ Regimen complete/ Level of care change) Active Problems Problem Noted Date Diagnosed Date [...] Encounters Date Type Department Care Team Description 01/28/2025 Lab Requisition [facility] [phone] Cash Ogden MD 01/17/2025 7:30 AM CDT Office Visit [facility] [address] [place] [address] Lauryn Tate PA Preoperative Exam (Tonsillectomy/adeno idectomy-[facility]-Dr. Ogden-01/28/25) 01/17/2025 Travel 11/11/2024 Orders Only [facility] Scanner 1 scan: (1-Ord) [facility], 11/11/2024 from Last 3 Months Immunizations Immunization Administration Dates Next Due DTaP 04/12/2008, 7,01/18/2003,11/17,2002 [...] 4 10/02/2023 Social Connections Answer Date Recorded Do you often feel lonely or isolated from those around you? 0 01/17/2025 Financial Resource Strain Answer Date R ecorded Difficulty of Paying Living Expenses 3 01/17/2025 Difficulty of Paying Living Expenses Not on file 01/17/2025 Food Insecurity Answer Date Recorded Do you worry your food will run out before you are able to buy more? 1 01/17/2025 Transportation Needs Answer Date Record ed Does lack of transportation keep you from medica l appointments? 1 01/17/2025 Does lack of transportation keep you from work, meetings or getting things that you need? 1 01/17/2025 Housing Stability Answer Date Recorded What is your housing situation today? 1 01/17/2025 Utilities Answer Date Recorded Do you have trouble paying f or utilities (for example, heat, electricity, water, phone)? 1 01/17/2025 Comments No Sex and Gender Information Value Date Recorded Sex Assigned at Female 08/03/2024 3:57 PM CONSTRUCTION RIGGER Legal Sex Female 5:25 AM CONSTRUCTION RIGGER Gender Identity Female 08/03/2024 3:57 PM CONSTRUCTION RIGGER Sexual Orientation Not on file Obstetrics History Para Term AB IAB SAB Ectopic Multiple Livin g Live Births 0 0 0 0 0 0 0 0 0 0 0 Last Filed Vital Signs Vital Sign Reading Time Taken Comments Blood Pressure 109/73 01/17/2025 7:36 AM CDT Pulse 97 01/17/2025 7:36 AM CDT Temperature 36.8 C (98.3 F) 12/19/2022 1:16 AM CDT Respiratory Rate 20 12/19/2022 1:16 AM CDT Oxygen Saturation 99% 01/17/2025 7:36 AM CDT Inhaled Oxygen Concentration - - Weight 113.4 kg (250 lb) 01/17/2025 7:36 AM CDT Height 164.1 cm (5' 4.61) 01/17/2025 7:36 AM CD T Body Mass Index 42.11 01/17/2025 7:36 AM CDT Plan of Treatment Health Maintenance Due Date Last Done Comments HIV for age 15-65 2017 Chlamydia for age 16-24 2018 Hepatitis C screening for age 18-79 2020 Pap test for age 21-65 2023 COVID-19 vaccine series () 03/21/2024 08/07/2022 Depression screening for age 12+ 10/01/2024 10/02/2023, 08/30/2022, 08/29/2022, Additional history exists Tetanus booster 10/18/2024 10/18/2014 Influenza Vaccine (#1) 2025 04/30/2013, 2010 BMI (ht and wt on same day) for age 18+ 01/17/2026 01/17/2025, 05/14/2023, 09/05/2020 Pneumococcal series for age 6-49 Aged Out 08/05/2003, 01/18/2003, 2002, Additional history exists No longer eligible based on patient's age to complete this topic Hepatitis B series for 19+ Completed 04/06, 04/06/2007, 2002, Additional history exists HPV series for age 9-26 Completed 09/19/2017, 04/21 Procedures Procedure Name Priority Date/Time Associated Diagnosis Comments SCAN-ULTRASOUND REPORT 11/11/2024 12:00 AM CDT from Last 3 Months Results * SCAN-ULTRASOUND REPORT (11/11/2024 12:00 AM CDT) Anatomical Region Laterality Modality Other us Scanner OTHER Final Result from Last 3 Months Insurance [facility] Care Teams Warehouse Team Member Relationship Specialty Start Date End Date Lauryn Tate PA [address] [place] [address] PCP - General Physician Chief Radiation Therapist 11/25/23
--- OUTSIDE RECORDS SUMMARY | 2025-01-31 10:23 | XMS_ITS | Data Portability ---
Author Organization [place] [facility] Address [address] [place] [address] Care Team Providers Care District Director Name Role Phone O NISREEN RODRIGUEZ Referring Provider MACHO SALES Primary Care Provider JEVON DENTAL Dentist [facility] Physical Therapis t Assessment Encounter Date Assessment [...] posture correction. A referral was sent to [place]. I recommended that Екатерина discuss with her [...] None recorded. Referral physical therapist referral 2022 023 [facility], [address], [place], [address], 21:16:34 Procedures None recorded. Surgeries None recorded. Imaging XR, orthopanto gram 2022 023 [facility] [place], [facility] [address], [place], [address], 21:14:24 Medication Orders None recorded. Patient TargetsNo targets recorded. Patient Instructions Encounter Date Encounter Id Patient Instructions Last Modified By Organization Details Last Modified Time 05/13/2023 [id number] Self Care for TMD Not avai lable [...] stabil izatio n applia nce Not Available [place] [address], [place], [address], 05/06/2023 14:29:39 05/13/20 XR, ortho panto gram No observ ation record ed. Not Available 05/13 11:57:13 05/13/20 XR, ortho panto gram No observ ation record ed. Not Available 05/13 12:52:30 05/13/20 23 XR, ortho panto gram No observ ation record ed. [place] [address], [place], [address], 05/13/2023 14:51:49 Result Notes None recorded. 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 776060968306 Active 2022 Bilateral TMJ disc displacem ent with reduction (left greater than right) JENNY NASCJOSE Valero DDS,MS [address], [place], [address], [place] [facility] 3 14:37:29 Myofascia l pain 771672068 Active 2022 masticato ry and cervical JENNY NASCIMENT Marlyu DDS,MS [address], [place], [address], [facility] 14:37:41 Periodont al ligament strain 408704266 Active 2022 JENNY NASCIMENT O DDS,MS [address], [place], [address], [place] [facility] 3 14:19:48 Sleep related bruxism 320967583 Active 2022 JENNY NASCIMENT O DDS,MS [address], [place], [address], [facility] 3 14:19:57 Obstructi ve sleep apnea of adult 009767850308 3 Active 2022 previous diagnosis JENNY FIGUEROAIMENT O, DDS,MS [address], [place], [address], [facility] 3 14:38:26 Chronic tension-t ype headache 416223591 Active 2022 JENNY FIGUEROAIMENT O, DDS,MS [address], [place], [address], [facility] 3 14:20:31 Episodic migraine 057389696221 106 Active 2022 JENNY FIGUEROAIMENT O, DDS,MS [address], [place], [address], [facility] 3 14:20:40 Migraine without aura 13898042 Active 2022 JENNY NASCIMENT Marylu DDS,MS [address], [place], [address], [facility] 3 14:20:54 Referred otalgia 97931043 Active 2022 JENNY ROSA Marylu DDS,MS [address], [place], [address], [facility] 3 14:25:29 Problem Notes None recorded. Procedures Surgical History Date Name Laterality Status Provider Name and Address Organization Details Recorded Time Orthopantogram completed Bridger Matthews [facility] 05/13/2023 12:59:56 Imaging Results None recorded. Procedure Notes None recorded. Medical Equipment None [...] Recorded Body height Body mass index (BMI) [Percentile] Per age and sex Body mass index (BMI) Body weight Heart rate Systolic And Diastolic Provider Name and Address Organization Details Last Updated DateTime 160.02 cm 97 % 35.4 kg/m2 45542.4 7 g 84 /min 121/88 mm[Hg] Bridger Matthews [facility] 11:21:55 Social History Question Answer Notes LastModified by [employer] ion Details LastModified Time Tobacco Smoking Status Never Smoker [facility] 05/13/2023 11:21:03 What Is Your Level Of Caffeine Consumption? Occasional Information not available 05/13/2023 What Type Of Diet Are You Following? REGULAR Information not available 05/13/2023 Do You Reside In Or Have You Traveled To An Area Where Ebola Virus Transmission Is Active? No Information not available 05/13/2023 What Is The Highest Grade Or Level Of School You Have Completed Or The Highest Degree You Have Received? [id number] Information not available 05/13/2023 Marital Status Single [...] Relationship Status? Single Information not available 05/13/2023 How Many Years Have You Smoked Tobacco? 0 Information not available 05/13/2023 Sex: Unknown Functional Status Question Answer Note LastModified by Organizat ion Details LastModified Time Do you use any illicit or recreational drugs? No Information not available 05/13/2023 What is your level of alcohol consumption? None Information not available 05/13/2023 Are you currently employed? 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 Occasional Information not available 05/13/2023 Mental Status Question Answer Note LastModified by Organization D etails LastModified Time Do you feel stressed (tense, restless, nervous, or anxious, or unable to sleep at night)? [id number] Information not available 05/13/2023 Family History Relationship Description Onset Age of [...] available 05/13 11:20:50 Medical History Condition Response Post traumatic stress disorder (PTSD) Y Head Trauma/Injury Y Migraines Y Depression Y Obstructive Sleep Apnea Y Anxiety Disorder Y Asthma Y Headaches Y Gynecological HistoryNo gynecological history recorded. 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 Bilateral temporomandibular joint pain 6429718780 5385525 M26.623 Bilateral TMJ arthralgia Bilateral temporomandibular joint articular disc disorder 9681287985 2276967 M26.633 Bilateral TMJ disc displaceme nt with reduction (left greater than right) Periodonta l ligament strain 304017487 K05.5 Sleep related bruxism 27 1226244 G47.63 Obstructiv e sleep apnea of adult 9830547762 103 G47.33 previous diagnosis Chronic te nsion-type headache 969703977 G44.229 Migraine without aura 56 037034 G43.009 Referred otalgia 0415698 8 H92.03 Health Concerns Section Related Observation LastModified by Organization Detai ls LastModified Time None Recorded Concern Status LastModified by Organization Details LastModified Time None Recorded Advance Directives Directive None Recorded Payers Insurance Date Sequence Insurance Name Policy Number Policy Servin Covered Member ID Servin Member ID Guarantor Name 2023 1 [place] [id number] [place] [id number] Е[place]атерина [place] Notes Date Note Type [...] a possible temporomandibular disorder. These symptoms are chronic and began with no clear triggering events. Previous consultation include evaluation with his/her ENT. Symptoms are bilateral and aggravated by jaw use and function. The patient is aware of teeth clenching and grinding.Екатерина presents for [...] PRN ibuprofen and Tylenol). JENNY MCCRACKEN DDS,MS [address], [place], [address], [facility] 05/14/2023 21:14:29 OBGyn Episode No OBEpisode recorded.
[2025-01-31 10:30] VITALS: BP 120/80; PULSE 96; RESP 20; TEMP 36.6; O2SAT 98; BMI 39.5
[2025-01-31 10:45] VITALS: RESP 14; O2SAT 98
--- NOTE | 2025-01-31 10:46 | ED.GENADULT ---
HPI - General Adult General Time Seen by Provider: 10:46 Date Seen: 01/31/25 Chief complaint: Post Op Complication Stated complaint: Had surgery on Friday having lots of pain Time Seen by Provider: 01/31/25 10:41 Source: patient, RN notes reviewed and old records reviewed Mode of arrival: ambulatory Limitations: no limitations History of Present Illness HPI narrative: Екатерина is a very pleasant 24-year-old female with tonsillectomy/sinus surgery on FridayJanuary 28 who comes to the emergency room today for increasing pain and inability to tolerate p.o.. Екатерина significant other is present has been taking care of her. They note that she had 3 episodes of vomiting after departing the hospital on Friday the but then was able to eat some the following day. She has been mainly hydrating with water and apple juice. Yesterday her pain started increasing and she is having him more difficult time with swallowing. She is breathing okay and has not had a fever. She has not had any vomiting today. Her pain medication schedule has been a Tylenol ibuprofen and oxycodone and I question if we are under dosing. They have not missed any doses. She is also taking an antibiotic 3 times daily. Related Data Home Medications ?Medication ?Instructions ?Recorded ?Confirmed albuterol sulfate 90 mcg/actuation 1 puff inhalation Q4H PRN 01/26/25 01/28/25 aerosol inhaler sumatriptan succinate 100 mg tablet mg PO 01/26/25 tizanidine 2 mg tablet mg PRN 01/26/25 Previous Rx's ?Medication ?Instructions ?Recorded cephalexin 250 mg/5 mL oral 250 mg (5 mL) PO TID #75 mL 01/28/25 suspension ondansetron 4 mg disintegrating 4 mg PO Q8H #10 tabs 01/28/25 tablet oxycodone 5 mg/5 mL oral solution 4 mg (4 mL) PO Q4-6H PRN pain #160 01/28/25 mL oxycodone 5 mg/5 mL oral solution See Rx Instructions .Route 01/31/25 .COMPLEX PRN pain #100 mL Allergies Allergy/AdvReac Type Severity Reaction Status Date / Time prochlorperazine Allergy tremors Verified 01/28/25 10:59 topiramate Allergy Fainting Verified 01/28/25 10:59 Estrogens AdvReac Migraine Verified 01/28/25 10:59 Review of Systems Status of ROS: Reports: 6 or more systems reviewed and unremarkable except as noted in History and below Const: Denies: fever or chills ENMT: Reports: throat pain Cardio: Denies: chest pain Resp: Denies: cough GI: Reports: nausea and vomiting (Resolved) [facility] History Depression ?F32.A - Depression, unspecified (ICD-10) Asthma ?J45.909 - Unspecified asthma, uncomplicated (ICD-10) Surgical History No significant past surgical history Social History Narrative: fiance-Ricky Smoking Status: Never smoker Do you use any of these nicotine containing products: None Second hand tobacco smoke exposure: No How often do you have a drink containing alcohol: never AUDIT-C Alcohol total score: 0 Non-prescribed substance use: denies use Caffeine: Yes Are you using contraception or practicing any form of control: No service: No Exam Narrative: Exam Narrative: Family is alert and oriented. Somewhat tearful. But alert. Eyes are clear. Face is symmetrical. Oral cavity shows moist mucous membranes. It is patent. No excessive swelling. Neck is supple. Heart with regular rate and rhythm and lungs are clear. Abdomen soft. Moving all extremities. Const: Vital Signs, click to edit/add: Vital Signs - 24 hr 01/31/25 10:30 01/31/25 10:45 01/31/25 11:30 Temperature 97.9 F Pulse Rate [Pulse Oximeter] 96 Respiratory Rate 20 14 16 Blood Pressure [Ri ght Upper Arm] 120/80 Pulse Oximetry 98 98 98 Oxygen Delivery Me thod Room Air Room Air Room Air 01/31/25 13:00 01/31/25 13:00 Temperature Pulse Rate [Pulse Oximeter] 70 Respiratory Rate 16 12 Blood Pressure [Ri ght Upper Arm] 102/68 Pulse Oximetry 98 98 Oxygen Delivery Me thod Room Air Room Air Documenting provider has reviewed patient's vital signs: yes Course Course ED Course: Differential diagnosis includes under dosing of pain medications, increased swelling, electrolyte abnormality, abscess formation. At this time I do think patient likely has under dosing of her pain medications. But we will also check blood work to include CBC, basic, CRP. Will converse with our ENT who is aware of the patient being in the ED. An IV will be placed in we will give morphine 4 mg, Zofran 4 mg dexamethasone 10 mg and 1 L of normal saline. I do not see a need for imaging at this time. Reevaluation(s) Reevaluation #1: Patient notes that the morphine only brought her pain down to an 8. She was however able to eat and drink successfully. She received 1 L of normal saline as well. Did give her additional dose of pain medication Dilaudid 0.5 mg IV and she is feeling much improved. In addition I did have worries about a hyponatremia given the fact that she was only taking in apple juice and water but labs appear to be reassuring. Family significant other was able to go get Gatorade and has been giving her a syringe full of fluid while she has been here and she has tolerated it without difficulty. At 1 point Екатерина did state it was hard to breathe but I sense that this was more congestion. Her airway was patent that sensation has now gone away. Vital Signs Vital signs: Initial Vital Signs Temperature 97.9 F 01/31/25 10:30 Temperature Source Temporal Artery Scan 01/31/25 10:30 Pulse Rate 96 01/31/25 10:30 Pulse Rhythm Regular 01/31/25 10:30 Respiratory Rate 20 01/31/25 10:30 Blood Pressure 120/80 01/31/25 10:30 Blood Pressure Mean 93 01/31/25 10:30 Blood Pressure Position Sitting 01/31/25 10:30 Pulse Oximetry 98 01/31/25 10:30 Oxygen Delivery Method Room Air 01/31/25 10:30 Vital Signs Temperature 97.9 F 01/31/25 10:30 Pulse Rate 96 01/31/25 10:30 Respiratory Rate 20 01/31/25 10:30 Blood Pressure 120/80 01/31/25 10:30 Pulse Oximetry 98 01/31/25 10:30 Oxygen Delivery Method Room Air 01/31/25 10:30 Temperature 97.9 F 01/31/25 10:30 Pulse Rate 70 01/31/25 13:00 Respiratory Rate 12 01/31/25 13:00 Blood Pressure 102/68 01/31/25 13:00 Pulse Oximetry 98 01/31/25 13:00 Oxygen Delivery Method Room Air 01/31/25 13:00 Medications Administered Medications: Discontinued Medications Generic Name Dose Route Start Last Admin Trade Name Toro PRN Reason Stop Dose Admin Dexamethasone 10 mg 01/31/25 10:59 01/31/25 13:11 Dexamethasone 10 Mg/Ml Pf IVP 01/31/25 11:00 10 mg ONCE ONE Administration Hydromorphone HCl 0.5 mg 01/31/25 13:04 01/31/25 13:29 Hydromorphone 0.5 Mg/0.5 Ml Inj IVP 01/31/25 13:05 0.5 mg ONCE ONE Administration Sodium Chloride 1,000 mls @ 1,000 mls/hr 01/31/25 10:59 01/31/25 14:20 0.9 % Sodium Chloride 1000 Ml IV 01/31/25 11:58 Infused .Q1H DALILA Infusion Morphine Sulfate 4 mg 01/31/25 10:59 01/31/25 11:20 Morphine 4 Mg/Ml Inj IVP 01/31/25 11:00 4 mg ONCE ONE Administration Ondansetron HCl 4 mg 01/31/25 10:59 01/31/25 11:20 Ondansetron 2 Mg/Ml Inj IVP 01/31/25 11:00 4 mg ONCE ONE Administration Medical Decision Making MDM Narrative Medical decision making narrative: 1. Postoperative pain-morphine, Zofran and Dilaudid given in the ED with good results. I have changed her medication dosing as I do think she was under dose. She will now be using 1000 mg of Tylenol every 8 hours. She will stagger this with ibuprofen 400-600 mg every 8 hours so that she is actually taking in a pain reliever every 4. In addition have increased her oxycodone to 5-10 mg every 4 hours as a rescue medication. Additional liquid oxycodone was sent to the pharmacy. 2. Disposition-home at this time. Much improved. Laboratory values reassuring with normal white count and CRP. LFTs within normal limits. Medical Records Medical records reviewed: Yes I reviewed the patient's medical records Lab Data Lab results reviewed: Yes I reviewed the patient's lab results Labs: Lab Results 01/31/25 Range/Units 11:30 WBC 11.57 H (4.50-11.00) K/uL RBC 4.91 (4.00-5.20) m/uL Hgb 15.0 (12.0-16.0) gm/dL Hct 44.3 (33.0-51.0) % MCV 90 (80-100) fL MCH 31 (26-34) pg MCHC 34 (32-36) gm/dL RDW Coeff of Trae 12.6 (11.5-15.5) % Plt Count 360 (140-440) K/uL Neut % (Auto) 62.2 (42.0-72.0) % Lymph % (Auto) 30.3 (20-44) % [place] % (Auto) 6.3 (0.0-11.0) % Eos % (Auto) 0.6 (0.0-7.0) % Baso % (Auto) 0.5 (0.0-3.0) % Neut # (Auto) 7.20 H (1.7-7.0) K/uL Lymph # (Auto) 3.50 H (0.90-2.90) K/uL [place] # (Auto) 0.70 (0.00-0.90) K/UL Eos # (Auto) 0.10 (0.00-0.50) K/uL Baso # (Auto) 0.10 (0.00-0.30) K/uL Abs Immat Gran (auto) 0.00 (0.00-0.30) K/uL Imm/Tot Granulo (auto) 0.1 % Sodium 135 (135-149) mmol/L Potassium 3.8 (3.6-5.1) mmol/L Chloride 104 (96-114) mmol/L Carbon Dioxide 26 (20-32) mmol/L Anion Gap 5 L (7-15) mEq/L BUN 9 (5-24) mg/dL Creatinine 0.6 (0.5-1.5) mg/dL Estimated Creat Clear 127.00 Estimated GFR 130 ml/min Glucose 88 (60-115) mg/dL Calcium 9.2 (8.4-10.6) mg/dL C-Reactive Protein 0.5 (0.5-1.0) mg/dL Discharge Plan Discharge Clinical Impression: Post-operative pain Patient Disposition: Home w/ Parent or Adult Condition: Improved Additional Instructions: Recommend changing her medical regimen to Tylenol 1000 mg or 2 tablets every 8 hours, ibuprofen 400-600 mg every 8 hours and oxycodone 5-10 mg every 4-6 hours. Medications schedule should be sent home with you. Try to stay as hydrated as possible, you may use water but do not use only water. Gatorade is also helpful. Follow-up with Dr. Ogden as needed. Return to the ER for fever, worsening symptoms and as needed. Prescriptions: New oxycodone 5 mg/5 mL solution See Rx Instructions .ROUTE .COMPLEX PRN (Reason: pain) Qty: 100 0RF Rx Instructions: 5-10 mg every 4-6 hours as needed for discomfort. No Action albuterol sulfate 90 mcg/actuation HFA aerosol inhaler 1 puff INHALATION Q4H PRN Rx Instructions: Inhale 1-2 Puffs by mouth every 4 hours if needed for Shortness Of Breath or Wheezing. tizanidine 2 mg tablet PRN Rx Instructions: TAKE 1 TABLET(2 MG) BY MOUTH EVERY 6 HOURS NEEDED FOR MUSCLE SPASM sumatriptan succinate 100 mg tablet PO Rx Instructions: Take 1 Tablet (100 mg) by mouth every 2 hours if needed for Migraine. Give at minimum 2hrs apart. Max Dose: 200mg per 24hrs. oxycodone 5 mg/5 mL solution 4 mg PO Q4-6H PRN (Reason: pain) Qty: 160 0RF cephalexin 250 mg/5 mL suspension for reconstitution 250 mg PO TID Qty: 75 0RF ondansetron 4 mg tablet,disintegrating 4 mg PO Q8H Qty: 10 0RF Follow Up/Referrals: Lauryn Tate PA-C [Primary Care Provider, Family Practice] Stand Alone Forms: [employer] Info Instructions
--- OUTSIDE RECORDS SUMMARY | 2025-01-31 11:09 | XMS_ITS | Clinical Summary ---
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 Name Role Phone [facility] Unavailable Unava ilable Conditions or Problems Problem Name Problem Code Onset Date Status Entry Date Provider Comment Standard Description Annotate Migraine NOS, not intractable 738640935 (SNOMED CT) Active Erin Tony DNP,TRUCK MECHANIC APPRENTICE,CN P Migraine without aura, not refractory Eye and vision exam, routine, abnormal findings - high cup-to-disc ratio 585223033 (SNOMED CT) 03/10 Active 03/10 Jaswant Cervantes MD Procedure carried out on subject Obstructive sleep apnea [id number] (SNOMED CT) 03/10 Active 03/10 Jaswant Cervantes MD Obstructive sleep apnea syndrome Anxiety associated with depression 309118947 (SNOMED CT) 03/10 Active 03/10 Jaswant Cervantes MD Mixed anxiety and depressive disorder Loss of consciousness 222219691 (SNOMED CT) 03/10 Active 03/10 Jaswant Cervantes MD Loss of consciousness Tension headache 054205253 (SNOMED CT) 03/10 Active 03/10 Jaswant Cervantes MD Tension-type headache Basilar migraine 41043710 (SNOMED CT) 03/10 Active 03/10 Jaswant Cervantes MD Basilar migraine Medications Medication Instructions Start Date Stop Date Generic Name NDC Provider NORETHINDRONE 0.35 MG TABS Take 1 tablet by mouth once a day 03/10 norethindrone (contraceptive) [id number] Jaswant Cervantes MD GABAPENTIN 600 MG TABS Take 1 tablet by mouth three times a day 03/10 gabapentin [id number] Jaswant Cervantes MD ESCITALOPRAM OXALATE 10 MG TABS Take 1/2 tablet once daily for 1 week, then increase to 1 tablet once daily. 03/10 escitalopram oxalate [id number] Jaswant Cervantes MD KETOROLAC TROMETHAMINE (KETOROLAC TROMETHAMINE) [...] every four hours as needed albuterol sulfate [id number] Jaswant Cervantes MD NORETHINDRONE 0.35 MG TABS Take 1 tablet by mouth once a day 03/10 norethindrone (contraceptive) [id number] Jaswant Cervantes MD SUMATRIPTAN SUCCINATE 100 MG TABS Take 1 tablet by mouth every two hours as needed sumatriptan succinate [id number] Jaswant Cervantes MD KETOROLAC TROMETHAMINE (KETOROLAC TROMETHAMINE) 30 MG/ML SOLN 30 mg intramuscularly 03/10 KETOROLAC TROMETHAMINE Jaswant Cervantes MD TIZANIDINE HCL 2 MG TABS Take 1 tablet by mouth every six hours as needed tizanidine [id number] Jaswant Cervantes MD GABAPENTIN 600 MG TABS Take 1 tablet by mouth three times a day 03/10 gabapentin [id number] Jaswant Cervantes MD TIZANIDINE HCL 2 MG TABS Take 1 Tablet (2 mg) by mouth every 6 hours if needed for Muscle Spasm. 03/10 tizanidine [id number] QIEUSER QIEUSER SUMATRIPTAN SUCCINATE 100 MG TABS Take 1 Tablet (100 mg) by mouth every 2 hours if needed for Migraine. Give at minimum 2hrs apart. Max Dose: 200mg per 24hrs. 03/10 sumatriptan succinate [id number] QIEUSER QIEUSER NORETHINDRONE 0.35 MG TABS Take 1 Tablet (0.35 mg) by mouth once daily. 03/10 norethindrone (contraceptive) [id number] QIEUSER QIEUSER KETOROLAC TROMETHAMINE (KETOROLAC TROMETHAMINE) 30 MG/ML SOLN 30 mg Intra-Muscular 03/10 KETOROLAC TROMETHAMINE QIEUSER QIEUSER KETOROLAC TROMETHAMINE (KETOROLAC TROMETHAMINE) 30 MG/ML SOLN 30 mg Intra-Muscular 03/10 KETOROLAC TROMETHAMINE QIEUSER QIEUSER GABAPENTIN 600 MG TABS Take 1 Tablet (600 mg) by mouth three times daily. 03/10 gabapentin [id number] QIEUSER QIEUSER ESCITALOPRAM OXALATE 10 MG TABS Take 1/2 tablet once daily for 1 week, then increase to 1 tablet once daily. 03/10 escitalopram oxalate [id number] QIEUSER QIEUSER ALBUTEROL SULFATE HFA 108 (90 Base) MCG/ACT AERS Inhale 1-2 Puffs by mouth every 4 hours if needed for Shortness Of Breath or Wheezing. 03/10 albuterol sulfate [id number] QIEUSER QIEUSER Medications Administered No information available. [...] ORDERS [place] [id number] [place] [id number] EEG (40min) [facility]-[id number] EEG (AWAKE/DROWSY) (END) 02 ORDERS Patient Instructions [facility]-[id number] Documentation of current medicatio ns Vital Signs Date Name Value Unit Description Heart Rate 62 /min pulse rate Immunizations No information available. Advance Directives No information available.
[2025-01-31] MEDS: ONDANSETRON 2 MG/ML inj 4 MG IVP (11:20)
[2025-01-31] MEDS: MORPHINE 4 MG/ML INJ IVP (11:20)
[2025-01-31 11:30] VITALS: RESP 16; O2SAT 98
[2025-01-31 11:40] LABS: Hematocrit 44.3 % (33.0-51.0); Hemoglobin* 15.0 gm/dL (12.0-16.0); Immature Granulocytes Pct Auto 0.1 %; Mean Corpuscular HGB Conc 34 gm/dL (32-36); Mean Corpuscular Hemoglobin 31 pg (26-34); Mean Corpuscular Volume 90 fL (80-100); RDW Coefficient of Variation % 12.6 % (11.5-15.5); Red Blood Count 4.91 m/uL (4.00-5.20); White Blood Count* 11.57 K/uL (4.50-11.00)
[2025-01-31 11:43] LABS: Immature Granulocytes Abs Auto 0.00 K/uL (0.00-0.30); Lymphocytes Absolute Auto 3.50 K/uL (0.90-2.90); Slide Review Reflex No
[2025-01-31 11:53] LABS: Chloride* 104 mmol/L (96-114); Potassium* 3.8 mmol/L (3.6-5.1); Sodium* 135 mmol/L (135-149)
[2025-01-31 11:57] LABS: Blood Urea Nitrogen* 9 mg/dL (5-24); Calcium* 9.2 mg/dL (8.4-10.6); Carbon Dioxide* 26 mmol/L (20-32); Creatinine* 0.6 mg/dL (0.5-1.5); Est. Creatinine Clearance* 127.00; Estimated Glomerular Filt Rate 130 ml/min; Glucose* 88 mg/dL (60-115)
[2025-01-31 12:01] LABS: Anion Gap 5 mEq/L (7-15)
[2025-01-31 13:00] VITALS: BP 102/68; PULSE 70; RESP 12; RESP 16; O2SAT 98
[2025-01-31] MEDS: DEXAMETHASONE 10 MG/ML PF IVP (13:11)
[2025-01-31 15:00] VITALS: PULSE 72; RESP 16; O2SAT 99
== END 2025-01-31 15:15 | disposition home or self-care (01) ==
PROVIDERS: Emergency Provider Family Medicine; PCP Physician Assistant
DX: G89.18 Other acute postprocedural pain (principal); R07.0 Pain in throat
CPT/HCPCS: 36415; 80048; 85025; 86140; 96361; 96374; 96375; 99284; J1100; J1171; J2270; J2405; J7030

== ENCOUNTER 2025-02-11 10:39 | Outpatient (CLI) | payer OTHER, SELFPAY ==
[2025-02-11 14:42] LABS: Bacterial Vaginosis* Negative (Negative); Candida glab/krus NOT DETECTED (No Detected)
[2025-02-11 15:13] LABS: Chlamydia DNA Amplified* NOT DETECTED (No Detected); GC DNA Amplified* NOT DETECTED (No Detected)
== END 2025-02-11 10:40 | disposition home or self-care (01) ==
PROVIDERS: PCP Physician Assistant; Visit Provider Registered Nurse
DX: N89.8 Other specified noninflammatory disorders of vagina (principal); Z11.3 Encounter for screening for infections with a predominantly sexual mode of transmission
CPT/HCPCS: 81513; 87086; 87481; 87491; 87591; 87661

== ENCOUNTER 2025-03-17 10:54 | Outpatient (CLI) | payer OTHER, SELFPAY | END 2025-03-17 10:55 | disposition home or self-care (01) | LOC: NFLDREF 03-20 05:29 | PROVIDERS: PCP Physician Assistant; Referring Provider Physician Assistant; Visit Provider Physician Assistant | DX: R30.0 Dysuria (principal); N39.0 Urinary tract infection, site not specified; B37.31 Acute candidiasis of vulva and vagina; R31.0 Gross hematuria | CPT/HCPCS: 87086 ==